=== PATIENT | female | born 1940 | race Caucasian/White ===

== ENCOUNTER 2021-09-10 14:17 | Inpatient (IN) ==
--- NOTE | 2021-09-08 16:17 | XRay Report ---
INDICATION: pre-op TECHNIQUE: PA and lateral upright chest x-ray COMPARISON: Previous examinations dated 03/27/2021, 11/19/2020, 06/23/2020 FINDINGS: Lungs: Lungs are hyperexpanded suggesting COPD. No focal pulmonary parenchymal infiltrate or mass. Heart, vascular: No significant cardiomegaly. Pulmonary vascularity is normal. No pulmonary edema or pulmonary congestion Mediastinum, wilma: No mediastinal widening. No hilar mass Pleura:No pleural fluid. No pleural-based mass or calcification Thoracic spine, ribs: No thoracic compression fracture. Ribs are negative. No fracture. No lytic lesion IMPRESSION: 1. Probable COPD 2. No acute or focal abnormality Interpreted and Authenticated by: Del Ng 09/08/21
--- NOTE | 2021-09-09 12:18 | EKG ---
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
--- NOTE | 2021-09-10 14:18 | Emergency Department Note ---
HPI General Chief complaint: Dizziness Stated complaint: Dizzy Time Seen by Provider: 09/10/21 14:18 Source: patient Mode of arrival: ambulatory Limitations: no limitations History of Present Illness HPI Narrative: 81-year-old female with past medical history of paroxysmal A. fib not on anticoagulation, Crohn's disease, CKD, and COPD presenting with lightheadedness. Patient states over the last week she has felt more lightheaded than usual, especially when getting up from her chair to go to the bathroom. She has not fallen or lost consciousness. She denies any room spinning vertiginous symptoms. Denies any prior history of [place] or CVA. She had outpatient labs and chest x-ray 2 days ago in preparation for surgery to remove a ureteral stent that is in place. No fever, cough, chest pain, vomiting, or diarrhea. No headache or vision changes. No other complaints. Related Data Home Medications Medication Instructions Recorded Confirmed aspirin 81 mg chewable tablet 81 mg PO DAILY tab 01/27/15 09/08/21 folic acid 800 mcg tablet 800 mcg PO QDAY tab 01/27/15 09/08/21 calcium carbonate 300 mg (750 mg) 300 mg PO QDAY tab 09/28/20 09/08/21 chewable tablet (Tums) qvbrqpkmrfkq-muasfbdj-vkdyrj tablet 1 tab PO QDAY 03/27/21 09/08/21 omega 4-zks-hzl-fish oil 1,000 mg 1 cap PO QDAY 03/27/21 09/08/21 (120 mg-180 mg) capsule (Fish Oil) azathioprine 50 mg tablet (Imuran) 50 mg PO QDAY tab 05/10/21 09/08/21 mirabegron 50 mg tablet,extended 50 mg PO QDAY 05/10/21 09/08/21 release 24 hr (Myrbetriq) cetirizine 10 mg tablet (Zyrtec) 10 mg PO QDAY PRN 09/08/21 09/08/21 cholecalciferol (vitamin D3) 25 25 mcg PO QDAY 09/08/21 09/08/21 mcg (1,000 unit) capsule (Vitamin D3) Previous Rx's Medication Instructions Recorded potassium citrate 10 mEq (1,080 10 meq PO TID #90 tab 03/02/21 mg) tablet,extended release buspirone 5 mg tablet 2.5 mg PO QDAY #45 tab 05/09/21 cyanocobalamin (vitamin B-12) 1,000 mcg SUB-Q QMONTH #3 ml 05/09/21 1,000 mcg/mL injection solution escitalopram oxalate 10 mg tablet 10 mg PO QDAY #90 tab 05/09/21 (Lexapro) fluticasone 100 mcg-salmeterol 50 1 inh INHALATION QDAY #60 ea 05/09/21 mcg/dose blistr powdr for inhalation (Wixela Inhub) metoprolol succinate 25 mg 25 mg PO HS #90 tab 05/09/21 tablet,extended release 24 hr pravastatin 40 mg tablet 40 mg PO HS #90 tab 05/09/21 magnesium oxide 420 mg tablet 420 mg PO ONCE #7 tab 08/16/21 Allergies Allergy/AdvReac Type Severity Reaction Status Date / Time Iodinated Contrast Media Allergy Mild Hives Verified 09/10/21 14:20 [Iodinated Contrast Media - IV Dye] Review of Systems ROS ROS Narrative: Narrative: Constitutional: Denies fever or chills Eyes: Denies vision change ENT ED: Denies throat pain Cardiovascular: Denies chest pain or palpitations Respiratory: Denies shortness of breath or cough Gastrointestinal: Denies abdominal pain, nausea or vomiting Genitourinary: Denies dysuria or hematuria Musculoskeletal: Denies back pain or joint swelling Integumentary: Denies rash or lesions Neurological: Denies headache, weakness, numbness, paresthesias, confusion or abnormal gait Psychiatric: Denies anxiety Endocrine: Denies fatigue Hematological/Lymphatic: Denies easy bleeding PFSH Narrative Patient History Narrative: Narrative: Medical/Surgical/Family History All Active Problems (Updated 09/10/21 @ 17:26 by Niranjan San MD) Allergic rhinitis (Chronic) Asthma (Chronic) Chronic kidney disease (CKD), stage III (moderate) (Chronic) COPD (chronic obstructive pulmonary disease) (Chronic) Crohn's disease (Chronic) Hyperlipidemia (Chronic) Kidney stones (Chronic) Overweight (Chronic) Renal osteodystrophy (Chronic) UTI (urinary tract infection) (Chronic) Vitamin D deficiency (Chronic) Hypertensive renal disease (Chronic) Osteoarthritis of right hip (Chronic) Kidney stone (Chronic) Ureteral calculi (Chronic) Recurrent nephrolithiasis (Chronic) Arterial insufficiency (Chronic) Frequent loose stools (Chronic) Fever (Chronic) Hydronephrosis (Chronic) Urinary calculi (Chronic) Immunosuppression (Chronic) 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) Blurry vision, bilateral (Chronic) History of atrial fibrillation (Chronic) History of decreased renal function (Chronic) Chest pain (Chronic) Calcium oxalate renal calculus (Chronic) Urinary tract infection (Chronic) Acute anxiety (Chronic) Pyuria (Chronic) OAB (overactive bladder) (Chronic) Diarrhea (Chronic) Tobacco dependence in remission (Chronic) Seborrheic keratosis (Chronic) Anxiety and depression (Chronic) Tremor (Chronic) Hypomagnesemia (Acute) Retained ureteral stent (Acute) Emphysematous pyelitis (Acute) Medical History (Updated 09/10/21 @ 17:26 by Niranjan San MD) Acute exacerbation of chronic bronchitis Alkalosis Allergic rhinitis Anxiety and depression Arterial insufficiency Asthma Atrial fibrillation single episode Calculus of ureter Chronic kidney disease (CKD), stage III (moderate) Peak SCr 1.9, now in low 1's Todd U/A and normal kidneys by U/S except for multiple non-obstructing stones COPD (chronic obstructive pulmonary disease) Crohn's disease Terminal ileum cecum and appendix have been removed as well as an additional small portion of bowel Liquidy stool leading to increased fluid loss via GI tract => difficult to get the patient to make 2 L of urine a day to help with recurrent nephrolithiasis Azathioprine Frequent loose stools Crohn's disease and prior surgical treatment thereof Headache Heart problem Hematuria Hydronephrosis Hyperlipidemia Hypertensive renal disease BP is at goal ct low sodium diet monitor BP at home call if any concerns Hypomagnesemia Immunosuppression Needs annual dermatologic evaluation and surveillance Kidney stones Multiple drug resistant organism (MDRO) culture positive To see Dr. Robledo Neoplasm of skin Open wound of knee without complication Osteoarthritis of right hip Overweight Pain in joint, lower leg Palpitations Recurrent nephrolithiasis High urine oxalate and low urine citrate. Improved with calcium supplementation and potassium citrate. Urine pH no longer alkalotic Renal osteodystrophy Seborrheic keratosis Diffuse Tobacco dependence in remission Tremor Ureteral calculi Left ureteral stent in place Urinary calculi Urolithiasis UTI (urinary tract infection) Most recent urinary tract infection was ESBL E. coli treated with cefepime for 1 week with documented clearance Vitamin D deficiency Surgical History History of appendectomy History of cholecystectomy History of colectomy History of colonoscopy History of esophagogastroduodenoscopy History of skin cancer History of surgery Bilateral Urethroscopy and laser lithostent Family History Mother Alzheimer's disease Malignant neoplasm of colon Father Malignant neoplasm of colon Hyperlipidemia Cerebrovascular accident Aunt Diabetes mellitus Social History Smoking Status: Former smoker Alcohol Intake Frequency: does not drink Substance Use: does not use Exam Narrative Narrative: Narrative: General Limitations: no limitations General appearance: Present alert and in no apparent distress Head Head: Present atraumatic and normocephalic Eye Eye: Present normal appearance, PERRL, EOMI and visual hawkins intact; Absent scleral icterus, conjunctival injection or nystagmus ENT ENT: Present normal oropharynx and mucous membranes moist Neck Neck: Present normal inspection, full ROM and trachea midline; Absent meningis mus or lymphadenopathy Chest Chest: Present symmetric chest wall rise Respiratory Respiratory: Present normal lung sounds bilaterally; Absent respiratory distress, wheezes, stridor, accessory muscle use or prolonged expiratory phase Cardiovascular Cardiovascular: Present regular rate and normal rhythm; Absent systolic murmur or diastolic murmur Adbominal Abdominal: Present soft; Absent distention, tenderness, guarding, rebound, rigidity, organomegaly or mass Extremities Extremities: Present normal inspection; Absent pretibial edema Back Back: Absent CVA tenderness (R), CVA tenderness (L) or spinous process tenderness Neurological Neurological: Present alert, oriented X3 and CN II-XII intact; Absent motor sensory deficit Expanded Neurological Patient oriented to: Present person, place and time Speech: Present fluid speech; Absent expressive aphasia or dysarthria CRANIAL NERVES: EOM function (II, III, IV, ): Normal, facial sensation (V): Normal, facial palsy (VII): Normal, gag reflex (IX): Normal, spinal accessory function (XI): Normal and tongue deviation (XII): Normal CEREBELLAR FUNCTION: finger to nose: Normal and heel to alexander: Normal CEREBELLAR FUNCTION: normal gait Motor strength - LUE: 5/5 Motor strength - RUE: 5/5 Motor strength - LLE: 5/5 Motor strength - RLE: 5/5 UPPER MOTOR NEURON EXAM: summer neglect: Normal and pronator drift: Normal SENSORY EXAM UPPER EXTREMITY: Normal: light touch SENSORY EXAM LOWER EXTREMITY: Normal: light touch Coma Scale Eye Opening: Spontaneous Coma Scale Motor Response: Obeys Commands Coma Scale Verbal Response: Oriented Coma Scale Total: 15 Psychiatric Psychiatric: Present normal affect and normal mood Skin Skin: Present warm (WNL) and dry Course Consultations Consultation #1: Dr. Aparicio, urology Time: 15:55 Consultation #2: Dr. Aparicio, urology Time: 17:10 Vital Signs Vital signs: Vital Signs Temperature 97.7 F 09/10/21 14:17 Pulse Rate 107 H 09/10/21 14:17 Respiratory Rate 18 09/10/21 14:17 Blood Pressure 83/49 09/10/21 14:17 Pulse Oximetry (%) 97 09/10/21 14:17 Temperature 97.7 F 09/10/21 14:17 Pulse Rate 66 09/10/21 17:12 Respiratory Rate 14 09/10/21 17:12 Blood Pressure 106/50 09/10/21 16:25 Pulse Oximetry (%) 100 09/10/21 17:12 [facility] MDM Narrative Medical decision making narrative: 81-year-old female presenting with lightheadedness. Patient initially hypotensive to 83/49 without tachycardia. Patient clinically appears well and has no neurologic deficits on exam. She denies any lightheadedness at this time. Lungs are clear and abdomen is nontender. Symptoms likely secondary to her hypotension and mild dehydration. Will obtain labs, EKG, give normal saline bolus, and reassess. 1600: Labs notable for acute on chronic renal insufficiency with a creatinine of 5.2. Potassium is normal. I discussed these findings with Dr. Aparicio of urology as patient is scheduled to have removal of her ureteral stent on Saturday. He recommends obtaining a CT without contrast to evaluate for stones and hydronephrosis. CT ordered. 1720: CT shows abnormal ascending colon with pneumatosis and dilatation indicating possible malignancy. There is gas within the left renal collecting system possibly indicating emphysematous pyelitis. I spoke with Dr. Aparicio who also evaluated the CT and he recommends mission for IV antibiotics and hydration. 3.375 g IV Zosyn and 1g IV vancomycin ordered. Patient signed out to oncheber HAQ, Dr. Rush. Lab Data Lab results reviewed: Yes I reviewed the patient's lab results. Result diagrams: 09/10/21 14:40 09/10/21 14:40 Labs: Lab Results 09/10/21 09/10/21 Range/Units 14:40 14:40 WBC 8.3 (4.5-11.0) K/mcL RBC 2.51 L (3.59-5.38) M/mcL Hgb 8.9 L (11.2-15.7) g/dL Hct 26.7 L (34.1-44.9) % MCV 106.4 H (80.0-100.0) fL MCH 35.5 H (26.0-34.0) pg MCHC 33.3 (31.0-36.0) g/dL RDW 16.8 H (11.5-14.5) % Plt Count 89 L (140-440) K/mcL MPV 10.9 H (7.4-10.4) fL Neut % (Auto) 66.5 (38.0-78.0) % Lymph % (Auto) 21.9 (15.5-49.0) % [place] % (Auto) 8.2 (1.0-12.0) % Eos % (Auto) 2.8 (0.0-7.0) % Baso % (Auto) 0.6 (0.0-2.0) % Lymph # (Auto) 1.82 (1.50-4.80) K/mcL [place] # (Auto) 0.68 (0.10-0.90) K/mcL Eos # (Auto) 0.23 (0.00-0.70) K/mcL Baso # (Auto) 0.05 (0.00-0.30) K/mcL Absolute Neutrophils 5.52 (1.80-8.00) K/mcL Sodium 137 (133-145) mmol/L Potassium 4.0 (3.3-5.1) mmol/L Chloride 106 (96-108) mmol/L Carbon Dioxide 16 L (22-30) mmol/L Anion Gap 15.0 (8.0-16.0) BUN 35 H (8-23) mg/dL Creatinine 5.2 H* (0.6-1.1) mg/dL GFR Calculation 7 Glucose 89 (70-105) mg/dL Calcium 8.3 L (8.6-10.4) mg/dL Radiology Data Radiology results reviewed: Yes I reviewed the patient's radiology results. Radiology results narrative: Ordering Physician:Niranjan San M.D. Date of Service:09/10/21 Procedure(s):CT abdomen pelvis wo con INDICATION: acute on chronic renal insufficiency, hx of stones COMPARISON: Previous CT scan dated 11/12/2020. Previous plain film examinations dated 01/06/2021, 12/28/2020, 11/22/2020 TECHNIQUE: Axial images were obtained through the abdomen and pelvis. Sagittally and coronally reformatted images. FINDINGS: Lung bases:No pulmonary parenchymal density. No calcified or noncalcified nodule. No pleural or pericardial effusion Liver:Liver is small and irregular consistent with cirrhosis. No detectable mass on this noncontrast-enhanced examination no detectable paraesophageal varices. There is recanalization of the umbilical vein Gallbladder, bilary:Previous cholecystectomy Spleen:Spleen is not enlarged. There are surgical clips at the splenic hilum Pancreas:No pancreatic mass. No peripancreatic abnormality Adrenal glands:Negative Kidneys,ureters,bladder:Right kidney is atrophic and measures 10 cm in length. There is a nonobstructing 8 mm right upper pole calculus. There is a stent within the left ureter. Proximal portion of the stent is in the left renal pelvis. Distal portion of the stent is within the urinary bladder. There is a 6 cm left upper pole cyst. There are multiple calculi in the mid and lower poles of the left kidney. There is no significant hydronephrosis. There is a calculus adjacent to the distal portion of left stent just proximal to the bladder. This measures 7 mm. There is gas within the left intrarenal collecting system. There is no gas within the urinary bladder. If this patient was recently catheterized this may be a benign finding. Emphysematous pyelitis is probable in the absence of previous instrumentation There is no bladder calculus. No intravesical gas Gastrointestinal:Rectum, sigmoid colon, descending colon, transverse colon appear negative. Cecum and ascending colon are abnormal. Ascending colon is amorphous and enlarged. There appears to be pneumatosis and wall thickening. There is pericolonic infiltration. There is a small calcification within the fat surrounding the ascending colon. This was present previously and is not a new finding. A mature abscess is not identified. Ischemic colitis in the ascending colon would be atypical. Malignancy is possible. Negative small bowel. No mechanical small bowel obstruction. No bowel wall thickening. No focal abnormality. Negative stomach and duodenum. No focal abnormality. There is a small hiatal hernia Appendix: The appendix is not identified Vascular:There is calcification of the abdominal aorta. No abdominal aortic aneurysm. Lymphatic:No retroperitoneal adenopathy. No significant mesenteric adenopathy. Mesentery, peritoneum:There is moderate ascites. No pneumoperitoneum. Reproductive:Uterus is atrophic with calcifications. No adnexal mass Musculoskeletal:No lumbar compression fractures. No lytic lesions. Sacrum, pelvis, hips are negative. Severe degenerative disc disease at L4-5 and L5-S1. There is a midline osteophyte projecting posteriorly at L4-5 with significant spinal canal stenosis. There is severe degenerative joint disease in the right hip No anterior abdominal wall or inguinal hernia. IMPRESSION: 1. Abnormal ascending colon with pneumatosis and dilatation. There is infiltration of pericolonic fat. Etiology is not certain. Malignancy is possible. Ischemic colitis is possible although distribution is atypical. 2. Cirrhosis. 3. Moderate ascites. 4. Bilateral renal calculi. There is a left ureteral stent present. There is a stone adjacent to the distal portion of the stent. 5. Gas within the left renal collecting system. There is no intravesical gas. Emphysematous pyelitis is possible The exam was performed using radiation dose optimization techniques including, but not limited to, automated exposure control, adjustment of the mA and/or kV according to patient size and use of iterative reconstruction technique. Interpreted and Authenticated by: Del Ng 09/10/21 EKG Data EKG #1: EKG attestation: Yes I reviewed and interpreted this EKG. and Yes There are no EKG findings of acute coronary syndrome EKG results narrative: Normal sinus rhythm at [address] elevation or depression. No peaked T waves. 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 only: No Clinical Impression: Emphysematous pyelitis Patient Disposition: Still a Patient Follow up with: Marques Tinoco MD [Primary Care Provider] - Prescriptions: No Action potassium citrate 10 mEq (1,080 mg) tablet extended release 10 meq PO TID Qty: 90 11RF magnesium oxide 420 mg tablet 420 mg PO ONCE Qty: 7 0RF aspirin 81 mg tablet,chewable 81 mg PO DAILY 0RF folic acid 800 mcg tablet 800 mcg PO QDAY 0RF buspirone 5 mg tablet 2.5 mg PO QDAY Qty: 45 1RF cyanocobalamin (vitamin B-12) 1,000 mcg/mL solution 1,000 mcg SUB-Q QMONTH Qty: 3 1RF escitalopram oxalate [Lexapro] 10 mg tablet 10 mg PO QDAY Qty: 90 1RF fluticasone propion-salmeterol [Wixela Inhub] 100-50 mcg/dose blister with device 1 inh INHALATION QDAY Qty: 60 1RF metoprolol succinate 25 mg tablet extended release 24 hr 25 mg PO HS Qty: 90 1RF pravastatin 40 mg tablet 40 mg PO HS Qty: 90 1RF Myrbetriq 50 mg tablet extended release 24 hr 50 mg PO QDAY 0RF calcium carbonate [Tums] 300 mg (750 mg) tablet,chewable 300 mg PO QDAY 0RF Centrum Silver Tablet 1 tab PO QDAY 0RF omega 3-jrr-vkl-fish oil [Fish Oil] 1,000 mg (120 mg-180 mg) Capsule 1 cap PO QDAY 0RF azathioprine [Imuran] 50 mg tablet 50 mg PO QDAY 0RF cetirizine [Zyrtec] 10 mg Tablet 10 mg PO QDAY PRN (Reason: Allergies) 0RF cholecalciferol (vitamin D3) [Vitamin D3] 25 mcg (1,000 unit) Capsule 25 mcg PO QDAY 0RF
[2021-09-10] MEDS ORDERED: 0.9 % SODIUM CHLORIDE 1,000 ML IV ONE ×3 (14:32→22:28)
--- NOTE | 2021-09-10 14:54 | EKG ---
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 Measurements Intervals [place] Rate: 63 P: -5 MO: 174 QRS: 41 QRSD: 104 T: 65 QT: 468 QTc: 480 Interpretive Statements Sinus rhythm Electronically Signed On 09-10-2021 14:53:55 PST by Eduin Barillas D.O. /store/M0/[id number]
[2021-09-10 15:27] LABS: Basophils # (Auto) 0.05 K/mcL (0.00-0.30); Basophils % (Auto) 0.6 % (0.0-2.0); Eosinophils # (Auto) 0.23 K/mcL (0.00-0.70); Eosinophils % (Auto) 2.8 % (0.0-7.0); Hematocrit 26.7 % (34.1-44.9); Hemoglobin 8.9 g/dL (11.2-15.7); Lymphocytes # (Auto) 1.82 K/mcL (1.50-4.80); Lymphocytes % (Auto) 21.9 % (15.5-49.0); Mean Cell Volume 106.4 fL (80.0-100.0); Mean Corpuscular HGB Conc 33.3 g/dL (31.0-36.0); Mean Platelet Volume 10.9 fL (7.4-10.4); Monocytes # (Auto) 0.68 K/mcL (0.10-0.90); Monocytes % (Auto) 8.2 % (1.0-12.0); Neutrophils % (Auto) 66.5 % (38.0-78.0); Platelet Count 89 K/mcL (140-440); RBC 2.51 M/mcL (3.59-5.38); Red Cell Distribution Width 16.8 % (11.5-14.5); WBC 8.3 K/mcL (4.5-11.0)
[2021-09-10 15:34] LABS: Blood Urea Nitrogen 35 mg/dL (8-23); Calcium 8.3 mg/dL (8.6-10.4); Carbon Dioxide 16 mmol/L (22-30); Chloride 106 mmol/L (96-108); Glomerular Filtration Rate 7; Glucose 89 mg/dL (70-105)
--- NOTE | 2021-09-10 16:50 | Cat Scan Report ---
INDICATION: acute on chronic renal insufficiency, hx of stones COMPARISON: Previous CT scan dated 11/12/2020. Previous plain film examinations dated 01/06/2021, 12/28/2020, 11/22/2020 TECHNIQUE: Axial images were obtained through the abdomen and pelvis. Sagittally and coronally reformatted images. FINDINGS: Lung bases:No pulmonary parenchymal density. No calcified or noncalcified nodule. No pleural or pericardial effusion Liver:Liver is small and irregular consistent with cirrhosis. No detectable mass on this noncontrast-enhanced examination no detectable paraesophageal varices. There is recanalization of the umbilical vein Gallbladder, bilary:Previous cholecystectomy Spleen:Spleen is not enlarged. There are surgical clips at the splenic hilum Pancreas:No pancreatic mass. No peripancreatic abnormality Adrenal glands:Negative Kidneys,ureters,bladder:Right kidney is atrophic and measures 10 cm in length. There is a nonobstructing 8 mm right upper pole calculus. There is a stent within the left ureter. Proximal portion of the stent is in the left renal pelvis. Distal portion of the stent is within the urinary bladder. There is a 6 cm left upper pole cyst. There are multiple calculi in the mid and lower poles of the left kidney. There is no significant hydronephrosis. There is a calculus adjacent to the distal portion of left stent just proximal to the bladder. This measures 7 mm. There is gas within the left intrarenal collecting system. There is no gas within the urinary bladder. If this patient was recently catheterized this may be a benign finding. Emphysematous pyelitis is probable in the absence of previous instrumentation There is no bladder calculus. No intravesical gas Gastrointestinal:Rectum, sigmoid colon, descending colon, transverse colon appear negative. Cecum and ascending colon are abnormal. Ascending colon is amorphous and enlarged. There appears to be pneumatosis and wall thickening. There is pericolonic infiltration. There is a small calcification within the fat surrounding the ascending colon. This was present previously and is not a new finding. A mature abscess is not identified. Ischemic colitis in the ascending colon would be atypical. Malignancy is possible. Negative small bowel. No mechanical small bowel obstruction. No bowel wall thickening. No focal abnormality. Negative stomach and duodenum. No focal abnormality. There is a small hiatal hernia Appendix: The appendix is not identified Vascular:There is calcification of the abdominal aorta. No abdominal aortic aneurysm. Lymphatic:No retroperitoneal adenopathy. No significant mesenteric adenopathy. Mesentery, peritoneum:There is moderate ascites. No pneumoperitoneum. Reproductive:Uterus is atrophic with calcifications. No adnexal mass Musculoskeletal:No lumbar compression fractures. No lytic lesions. Sacrum, pelvis, hips are negative. Severe degenerative disc disease at L4-5 and L5-S1. There is a midline osteophyte projecting posteriorly at L4-5 with significant spinal canal stenosis. There is severe degenerative joint disease in the right hip No anterior abdominal wall or inguinal hernia. IMPRESSION: 1. Abnormal ascending colon with pneumatosis and dilatation. There is infiltration of pericolonic fat. Etiology is not certain. Malignancy is possible. Ischemic colitis is possible although distribution is atypical. 2. Cirrhosis. 3. Moderate ascites. 4. Bilateral renal calculi. There is a left ureteral stent present. There is a stone adjacent to the distal portion of the stent. 5. Gas within the left renal collecting system. There is no intravesical gas. Emphysematous pyelitis is possible The exam was performed using radiation dose optimization techniques including, but not limited to, automated exposure control, adjustment of the mA and/or kV according to patient size and use of iterative reconstruction technique. Interpreted and Authenticated by: Del Ng 09/10/21
[2021-09-10] MEDS ORDERED: PIPERACILLIN SODIUM/TAZOBACTAM 3.375 GM in DEXTROSE 5% IN WATER 50 ML IV ONE (17:07)
[2021-09-10] MEDS ORDERED: VANCOMYCIN 1,000 MG in 0.9 % SODIUM CHLORIDE 250 ML IV ONE (17:24)
[2021-09-10 20:09] LABS: Appearance,Urine Cloudy (Clear); Bacteria,Urine MANY /hpf (0); Bilirubin,Urine Negative (Negative); Culture Indicated,Urine yes; Glucose,Urine (UA) Negative (Negative); Ketones,Urine Trace mg/dL (Negative); Leukocyte Esterase,Urine Large /uL (Negative); Nitrate,Urine Negative (Negative); Protein,Urine >=300 mg/dL mg/dL (Negative); Urine Blood Large ery/mcL (Negative); Urine RBC > 182 /hpf (0-1); Urine Squamous Epithelial Cell 0 /hpf (0-4); Urine WBC > 182 /hpf (0-4); Urobilinogen,Urine Normal
--- NOTE | 2021-09-10 21:15 | Emergency Department Note ---
Course Course Course Narrative: Signout pending admission. 81-year-old female presented with generalized weakness lightheadedness for the last week. Describing orthostatic hypotension on standing. Was found to be hypotensive on arrival to the emergency room. Bolused fluids with improvement in symptoms as well as blood pressure. Acute on chronic kidney disease was found on her laboratory studies creatinine was 3.7 on September 08 2 days prior and had jumped to 5.2 today. Urinalysis does show evidence of infection. Cultured. Dr. San had spoken to Dr. Aparicio. Did recommend a CT abdomen pelvis. 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 Dr. San did speak to Dr. Aparicio no immediate intervention at this time however IV antibiotics Zosyn Macr obid and will remove stent tomorrow. On my evaluation patient is resting comfortably. Denies nausea vomiting. Does have chronic loose stools was told to avoid dairy products. With improvement in her loose stools. No abdominal pain. Awake alert oriented x4. Normal blood pressure at 106/50 and a pulse of 67. Was able to ambulate with her walker to the restroom with no lightheadedness weakness. Tolerating p.o. She was updated on results clinic impressions treatment plan to admit. Agreeable questions have been answered at length. I did speak to Dr. Tomasz Jones who again agrees with IV fluid hydration antibiotic stent removal no hemodialysis at this time and states Dr. Lane is on-call and will see patient in the morning. Dr. Wesley hospitalist was spoken to. He did review records as well as imaging. CT scan is also showing an abnormal ascending colon with pneumatosis and dilatation. Patient states that she does see GI for her Crohn's disease did have resection of her bowel years ago by a doctor Majors. Hospitalist is requesting I speak to the on-call general surgeon. Dr. Tate was spoken to by myself agreeable to consult and will evaluate the patient in the morning. Dr Wesley updated. Vital Signs Vital signs: Vital Signs Temperature 36.5 C 09/10/21 14:17 Pulse Rate 107 H 09/10/21 14:17 Respiratory Rate 18 09/10/21 14:17 Blood Pressure 83/49 09/10/21 14:17 Pulse Oximetry (%) 97 09/10/21 14:17 Temperature 36.5 C 09/10/21 14:17 Pulse Rate 67 09/10/21 21:08 Respiratory Rate 13 09/10/21 21:08 Blood Pressure 106/50 09/10/21 16:25 Pulse Oximetry (%) 100 09/10/21 21:08 [facility] MDM Narrative Medical decision making narrative: Narrative: Lab Data Result diagrams: 09/10/21 14:40 09/10/21 14:40 Labs: Lab Results 09/10/21 09/10/21 09/10/21 Range/Units 14:40 14:40 19:22 WBC 8.3 (4.5-11.0) K/mcL RBC 2.51 L (3.59-5.38) M/mcL Hgb 8.9 L (11.2-15.7) g/dL Hct 26.7 L (34.1-44.9) % MCV 106.4 H (80.0-100.0) fL MCH 35.5 H (26.0-34.0) pg MCHC 33.3 (31.0-36.0) g/dL RDW 16.8 H (11.5-14.5) % Plt Count 89 L (140-440) K/mcL MPV 10.9 H (7.4-10.4) fL Neut % (Auto) 66.5 (38.0-78.0) % Lymph % (Auto) 21.9 (15.5-49.0) % [place] % (Auto) 8.2 (1.0-12.0) % Eos % (Auto) 2.8 (0.0-7.0) % Baso % (Auto) 0.6 (0.0-2.0) % Lymph # (Auto) 1.82 (1.50-4.80) K/mcL [place] # (Auto) 0.68 (0.10-0.90) K/mcL Eos # (Auto) 0.23 (0.00-0.70) K/mcL Baso # (Auto) 0.05 (0.00-0.30) K/mcL Absolute Neutrophils 5.52 (1.80-8.00) K/mcL Sodium 137 (133-145) mmol/L Potassium 4.0 (3.3-5.1) mmol/L Chloride 106 (96-108) mmol/L Carbon Dioxide 16 L (22-30) mmol/L Anion Gap 15.0 (8.0-16.0) BUN 35 H (8-23) mg/dL Creatinine 5.2 H* (0.6-1.1) mg/dL GFR Calculation 7 Glucose 89 (70-105) mg/dL Calcium 8.3 L (8.6-10.4) mg/dL Urine Color Green Urine Appearance Cloudy A (Clear) Urine pH 6.0 (5.0-9.0) Ur Specific [place] 1.020 (1.000-1.035) Urine Protein >=300 mg/dl A (Negative) mg/dL Urine Glucose (UA) Negative (Negative) mg/dL Urine Ketones Trace A (Negative) mg/dL Urine Occult Blood Large A (Negative) yael/mcL Urine Nitrate Negative (Negative) Urine Bilirubin Negative (Negative) mg/dL Urine Urobilinogen Normal mg/dL Ur Leukocyte Esterase Large A (Negative) /uL Urine RBC > 182 H (0-1) /hpf Urine WBC > 182 H (0-4) /hpf Ur Squamous Epith Cells 0 (0-4) /hpf Urine Bacteria Many A (0) /hpf Ur Culture Indicated? yes Discharge Plan Patient/Caregiver Discharge Instructions Pt seen by [employer]/PA only: No Clinical Impression: Emphysematous pyelitis Patient Disposition: Still a Patient Follow up with: Marques Tinoco MD [Primary Care Provider] - Prescriptions: No Action potassium citrate 10 mEq (1,080 mg) tablet extended release 10 meq PO TID Qty: 90 11RF magnesium oxide 420 mg tablet 420 mg PO ONCE Qty: 7 0RF aspirin 81 mg tablet,chewable 81 mg PO DAILY 0RF folic acid 800 mcg tablet 800 mcg PO QDAY 0RF buspirone 5 mg tablet 2.5 mg PO QDAY Qty: 45 1RF cyanocobalamin (vitamin B-12) 1,000 mcg/mL solution 1,000 mcg SUB-Q QMONTH Qty: 3 1RF escitalopram oxalate [Lexapro] 10 mg tablet 10 mg PO QDAY Qty: 90 1RF fluticasone propion-salmeterol [Wixela Inhub] 100-50 mcg/dose blister with device 1 inh INHALATION QDAY Qty: 60 1RF metoprolol succinate 25 mg tablet extended release 24 hr 25 mg PO HS Qty: 90 1RF pravastatin 40 mg tablet 40 mg PO HS Qty: 90 1RF calcium carbonate [Tums] 300 mg (750 mg) tablet,chewable 300 mg PO QDAY 0RF Centrum Silver Tablet 1 tab PO QDAY 0RF omega 7-rkv-jvz-fish oil [Fish Oil] 1,000 mg (120 mg-180 mg) Capsule 1 cap PO QDAY 0RF azathioprine [Imuran] 50 mg tablet 50 mg PO QDAY 0RF cetirizine [Zyrtec] 10 mg Tablet 10 mg PO QDAY PRN (Reason: Allergies) 0RF cholecalciferol (vitamin D3) [Vitamin D3] 25 mcg (1,000 unit) Capsule 25 mcg PO QDAY 0RF
--- NOTE | 2021-09-10 21:24 | Internal Med History&Physical ---
HPI History of Present Illness Patient information: Note initiated : 09/10/21 at 9:12 pm Service Date, if different from initiated Date: [] Patient: Rani Toro a 81 y/o F admitted on for Dizzy. Chief Complaint: [] History of present illness: Ms. Toro is a 81 year old F Presents to the ED with increasing weakness and lightheadedness. Patient had hard time walking to the bathroom without having to sit down from feeling lightheadedness. Denies fever chills nausea vomiting. Denies chest pain or stomach pain. Abnormal bowel function from Crohn's. Has a history of chronic kidney disease and follows with Dr. Angeles. Chronic thrombocytopenia and anemia. Old notes report a single episode of atrial fibrillation but none since; and confirmed by pt. She has a left kidney stents post removed by Dr. Aparicio on Saturday. On evaluation the ED she was hypotensive initially which responded to IV fluid. She is work-up but found to have acute acute kidney injury on chronic kidney disease. Wound to have pyelonephritis on the left. Case discussed with Dr. Karthik Aparicio. CT abdominal also read as pneumatosis in the colon and case discussed with Dr. Tate who will see the patient in the morning but did not have any recommendations at this point. Review of Systems: Pertinent positives as above. Denies headache/fever/chills/nausea/vomiting/chest or abdominal pain/cough/dyspnea/diarrhea. Remaining 10 point review of system reviewed negative PFSH PFSH All Active Problems (Updated 09/10/21 @ 17:26 by Niranjan San MD) Allergic rhinitis (Chronic) Asthma (Chronic) Chronic kidney disease (CKD), stage III (moderate) (Chronic) COPD (chronic obstructive pulmonary disease) (Chronic) Crohn's disease (Chronic) Hyperlipidemia (Chronic) Kidney stones (Chronic) Overweight (Chronic) Renal osteodystrophy (Chronic) UTI (urinary tract infection) (Chronic) Vitamin D deficiency (Chronic) Hypertensive renal disease (Chronic) Osteoarthritis of right hip (Chronic) Kidney stone (Chronic) Ureteral calculi (Chronic) Recurrent nephrolithiasis (Chronic) Arterial insufficiency (Chronic) Frequent loose stools (Chronic) Fever (Chronic) Hydronephrosis (Chronic) Urinary calculi (Chronic) Immunosuppression (Chronic) 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) Blurry vision, bilateral (Chronic) History of atrial fibrillation (Chronic) History of decreased renal function (Chronic) Chest pain (Chronic) Calcium oxalate renal calculus (Chronic) Urinary tract infection (Chronic) Acute anxiety (Chronic) Pyuria (Chronic) OAB (overactive bladder) (Chronic) Diarrhea (Chronic) Tobacco dependence in remission (Chronic) Seborrheic keratosis (Chronic) Anxiety and depression (Chronic) Tremor (Chronic) Hypomagnesemia (Acute) Retained ureteral stent (Acute) Emphysematous pyelitis (Acute) Medical History (Updated 09/10/21 @ 17:26 by Niranjan San MD) Acute exacerbation of chronic bronchitis Alkalosis Allergic rhinitis Anxiety and depression Arterial insufficiency Asthma Atrial fibrillation single episode Calculus of ureter Chronic kidney disease (CKD), stage III (moderate) Peak SCr 1.9, now in low 1's [place] U/A and normal kidneys by U/S except for multiple non-obstructing stones COPD (chronic obstructive pulmonary disease) Crohn's disease Terminal ileum cecum and appendix have been removed as well as an additional small portion of bowel Liquidy stool leading to increased fluid loss via GI tract => difficult to get the patient to make 2 L of urine a day to help with recurrent nephrolithiasis Azathioprine Frequent loose stools Crohn's disease and prior surgical treatment thereof Headache Heart problem Hematuria Hydronephrosis Hyperlipidemia Hypertensive renal disease BP is at goal ct low sodium diet monitor BP at home call if any concerns Hypomagnesemia Immunosuppression Needs annual dermatologic evaluation and surveillance Kidney stones Multiple drug resistant organism (MDRO) culture positive To see Dr. Robledo Neoplasm of skin Open wound of knee without complication Osteoarthritis of right hip Overweight Pain in joint, lower leg Palpitations Recurrent nephrolithiasis High urine oxalate and low urine citrate. Improved with calcium supplementation and potassium citrate. Urine pH no longer alkalotic Renal osteodystrophy Seborrheic keratosis Diffuse Tobacco dependence in remission Tremor Ureteral calculi Left ureteral stent in place Urinary calculi Urolithiasis UTI (urinary tract infection) Most recent urinary tract infection was ESBL E. coli treated with cefepime for 1 week with documented clearance Vitamin D deficiency Surgical History History of appendectomy History of cholecystectomy History of colectomy History of colonoscopy History of esophagogastroduodenoscopy History of skin cancer History of surgery Bilateral Urethroscopy and laser lithostent Family History Mother Alzheimer's disease Malignant neoplasm of colon Father Malignant neoplasm of colon Hyperlipidemia Cerebrovascular accident Aunt Diabetes mellitus Social History marital status: occupational status: retired occupation: [employer] other: Has 1 child smoking status: Former smoker quit date: 07/29/09 alcohol intake frequency: does not drink substance use type: does not use MEDS/ALLERGIES Home Medications and Allergies Home Medications Medication Instructions Recorded Confirmed Type aspirin 81 mg chewable tablet 81 mg PO DAILY tab 01/27/15 09/10/21 History folic acid 800 mcg tablet 800 mcg PO QDAY tab 01/27/15 09/10/21 History calcium carbonate 300 mg (750 mg) 300 mg PO QDAY tab 09/28/20 09/10/21 History chewable tablet (Tums) potassium citrate 10 mEq (1,080 10 meq PO TID #90 tab 03/02/21 09/10/21 Rx mg) tablet,extended release yxovirqiikeb-uvgwuubt-hgepci tablet 1 tab PO QDAY 03/27/21 09/10/21 History omega 8-rjv-sjd-fish oil 1,000 mg 1 cap PO QDAY 03/27/21 09/10/21 History (120 mg-180 mg) capsule (Fish Oil) buspirone 5 mg tablet 2.5 mg PO QDAY #45 tab 05/09/21 09/10/21 Rx cyanocobalamin (vitamin B-12) 1,000 mcg SUB-Q QMONTH #3 ml 05/09/21 09/10/21 Rx 1,000 mcg/mL injection solution escitalopram oxalate 10 mg tablet 10 mg PO QDAY #90 tab 05/09/21 09/10/21 Rx (Lexapro) fluticasone 100 mcg-salmeterol 50 1 inh INHALATION QDAY #60 ea 05/09/21 09/10/21 Rx mcg/dose blistr powdr for inhalation (Wixela Inhub) metoprolol succinate 25 mg 25 mg PO HS #90 tab 05/09/21 09/10/21 Rx tablet,extended release 24 hr pravastatin 40 mg tablet 40 mg PO HS #90 tab 05/09/21 09/10/21 Rx azathioprine 50 mg tablet (Imuran) 50 mg PO QDAY tab 05/10/21 09/10/21 History magnesium oxide 420 mg tablet 420 mg PO ONCE #7 tab 08/16/21 09/10/21 Rx cetirizine 10 mg tablet (Zyrtec) 10 mg PO QDAY PRN 09/08/21 09/10/21 History cholecalciferol (vitamin D3) 25 25 mcg PO QDAY 09/08/21 09/10/21 History mcg (1,000 unit) capsule (Vitamin D3) Allergies Allergy/AdvReac Type Severity Reaction Status Date / Time Iodinated Contrast Media Allergy Mild Hives Verified 09/10/21 14:20 [Iodinated Contrast Media - IV Dye] EXAM Constitutional Vitals: Temp Pulse Resp BP Pulse Ox 97.7 F 67 13 106/50 100 09/10/21 14:17 09/10/21 21:08 09/10/21 21:08 09/10/21 16:25 09/10/21 21:08 Exam: General: Alert, Awake, No acute Distress Eyes/N/T: EOMI, PERRL, dry MM Head/Neck: neck supple, normocephalic atraumatic CV: RRR, No murmurs, normal s1/s2 Pulm: Clear b/l, no wheezing/rhonchi/rales Abd: soft, nontender, decreased BS x4 Ext: no clubbing/cyanosis/edema Neuro: Alert, no focal deficits, moves all extremities, CN 2-12 grossly intact, symmetrical strength b/l upper/lower, sensations intact b/l upper/lower Skin: warm/dry DATA Data Completed and Pending Labs: Labs from last 24 hours 09/10/21 09/10/21 09/10/21 21:02 19:22 14:40 WBC RBC Hgb Hct MCV MCH MCHC RDW Plt Count MPV Neut % (Auto) Lymph % (Auto) [place] % (Auto) Eos % (Auto) Baso % (Auto) Lymph # (Auto) [place] # (Auto) Eos # (Auto) Baso # (Auto) Absolute Neutrophils Platelet Estimate RBC Morphology PT INR VBG Lactic Acid Pending Sodium Potassium Chloride Carbon Dioxide Anion Gap BUN Creatinine GFR Calculation Glucose Calcium Total Bilirubin Pending Direct Bilirubin Pending AST Pending ALT Pending Alkaline Phosphatase Pending Total Protein Pending Albumin Pending Globulin Pending Urine Color Green Urine Appearance Cloudy A Urine pH 6.0 Ur Specific [place] 1.020 Urine Protein >=300 mg/dl A Urine Glucose (UA) Negative Urine Ketones Trace A Urine Occult Blood Large A Urine Nitrate Negative Urine Bilirubin Negative Urine Urobilinogen Normal Ur Leukocyte Esterase Large A Urine RBC > 182 H Urine WBC > 182 H Ur Squamous Epith Cells 0 Urine Bacteria Many A Ur Culture Indicated? yes 09/10/21 09/10/21 09/10/21 14:40 14:40 14:40 WBC 8.3 RBC 2.51 L Hgb 8.9 L Hct 26.7 L MCV 106.4 H MCH 35.5 H MCHC 33.3 RDW 16.8 H Plt Count 89 L MPV 10.9 H Neut % (Auto) 66.5 Lymph % (Auto) 21.9 [place] % (Auto) 8.2 Eos % (Auto) 2.8 Baso % (Auto) 0.6 Lymph # (Auto) 1.82 [place] # (Auto) 0.68 Eos # (Auto) 0.23 Baso # (Auto) 0.05 Absolute Neutrophils 5.52 Platelet Estimate Pending RBC Morphology Pending PT Pending INR Pending VBG Lactic Acid Sodium Potassium Chloride Carbon Dioxide Anion Gap BUN Creatinine GFR Calculation Glucose Calcium Total Bilirubin Direct Bilirubin AST ALT Alkaline Phosphatase Total Protein Albumin Globulin Urine Color Urine Appearance Urine pH Ur Specific [place] Urine Protein Urine Glucose (UA) Urine Ketones Urine Occult Blood Urine Nitrate Urine Bilirubin Urine Urobilinogen Ur Leukocyte Esterase Urine RBC Urine WBC Ur Squamous Epith Cells Urine Bacteria Ur Culture Indicated? 09/10/21 14:40 WBC RBC Hgb Hct MCV MCH MCHC RDW Plt Count MPV Neut % (Auto) Lymph % (Auto) [place] % (Auto) Eos % (Auto) Baso % (Auto) Lymph # (Auto) [place] # (Auto) Eos # (Auto) Baso # (Auto) Absolute Neutrophils Platelet Estimate RBC Morphology PT INR VBG Lactic Acid Sodium 137 Potassium 4.0 Chloride 106 Carbon Dioxide 16 L Anion Gap 15.0 BUN 35 H Creatinine 5.2 H* GFR Calculation 7 Glucose 89 Calcium 8.3 L Total Bilirubin Direct Bilirubin AST ALT Alkaline Phosphatase Total Protein Albumin Globulin Urine Color Urine Appearance Urine pH Ur Specific [place] Urine Protein Urine Glucose (UA) Urine Ketones Urine Occult Blood Urine Nitrate Urine Bilirubin Urine Urobilinogen Ur Leukocyte Esterase Urine RBC Urine WBC Ur Squamous Epith Cells Urine Bacteria Ur Culture Indicated? A/P Narrative A/P Narrative: A: *Severe sepsis: 2/2 pyelonephritis *Hypotension: 2/2 above and resolved in the ED with IVF *Left pyelonephritis: Has a left ureteral stent will be removed by Dr. Aparicio *RAMSES on CKD III: Follows Dr. Angeles *Met acidosis: 2/2 above *Anemia, chronic: *Thrombocytopenia, chronic: *?cirrhosis: CT imaging read as cirrhosis with ascites *COPD(no home O2): *Depression/anxiety: *Crohn's: Follows with Dr. Jacobo P: -Zosyn pending UC -IVF -Dr. Angeles and Alessandra following -Dr. Tate consulted for CT a/p findings -liver u/s with doppler - -pt/ot -f/u with Donnell regarding cirrhosis read on CT -ppx: heparin (hold if plts<50k) DNR Time Spent With Patient Time: Total time spent is greater than 50% in coordination of care (as documented) at patient's floor/unit and/or counseling patient:
[2021-09-10 21:36] LABS: ALT/SGPT 19 U/L (<40); AST/SGOT 33 U/L (<32); Albumin 3.1 gm/dL (3.2-5.2); Alkaline Phosphatase 69 U/L (39-117); Bilirubin,Direct 0.4 mg/dL (<0.3); Globulin 2.9 gm/dL (2.2-3.7)
[2021-09-10 22:20] LABS: Anisocytosis 1+ (None Seen); Band Neutrophils % 9 % (0-10); Eosinophils % (Manual) 3 % (0-7); Lymphocytes % 20 % (15-49); Macrocytosis 1+ (None Seen); Monocytes % (Manual) 11 % (1-12); Platelet Estimate DECREASED (Normal); RBC Morphology ABNORMAL (Normal); Segmented Neutrophils % 57 % (38-78)
[2021-09-10 22:26] LABS: INR 1.9 (0.9-1.1); Prothrombin Time 22.9 sec (11.9-14.5)
[2021-09-11] MEDS ORDERED: PIPERACILLIN SODIUM/TAZOBACTAM 3.375 GM in DEXTROSE 5% IN WATER 50 ML IV ONE (00:07)
[2021-09-11] MEDS ORDERED: ALBUMIN HUMAN 25 GM/100 ML BAG IV ONE (00:18)
[2021-09-11] MEDS ORDERED: SENNOSIDES 1 TABLET PO PRN (02:27)
[2021-09-11] MEDS ORDERED: ACETAMINOPHEN 325 MG TABLET PO PRN (02:27)
[2021-09-11] MEDS ORDERED: POLYETHYLENE GLYCOL 3350 17 GM PACKET PO PRN (02:27)
[2021-09-11] MEDS ORDERED: 0.9 % SODIUM CHLORIDE 1,000 ML IV SCH ×2 (02:27→07:37)
[2021-09-11] MEDS ORDERED: POTASSIUM CHLORIDE 40 MEQ in DEXTROSE 5% IN WATER 500 ML IV PRN (02:27)
[2021-09-11] MEDS ORDERED: IPRATROPIUM/ALBUTEROL 3 ML AMPUL.NEB NEB PRN (02:27)
[2021-09-11] MEDS ORDERED: HEPARIN 5,000 UNIT/ML VIAL SQ ONE ×2 (02:27→09:23)
[2021-09-11] MEDS ORDERED: METOPROLOL TARTRATE 5 MG/5 ML VIAL IV PRN (02:27)
[2021-09-11] MEDS ORDERED: PIPERACILLIN SODIUM/TAZOBACTAM 3.375 GM in DEXTROSE 5% IN WATER 50 ML IV SCH (02:27)
[2021-09-11] MEDS ORDERED: POTASSIUM CHLORIDE 20 MEQ TABLET PO PRN (02:27)
[2021-09-11] MEDS ORDERED: ONDANSETRON 4 MG/2 ML VIAL IV PRN (02:27)
[2021-09-11] MEDS: 0.9 % SODIUM CHLORIDE 10 ML SYRINGE IV SCH ×4 (03:02→20:23)
[2021-09-11] MEDS ORDERED: HEPARIN 5,000 UNIT/ML VIAL ONE (05:06)
[2021-09-11 07:05] LABS: Hematocrit 24.5 % (34.1-44.9); Hemoglobin 7.6 g/dL (11.2-15.7); Mean Cell Volume 111.4 fL (80.0-100.0); Mean Platelet Volume 10.8 fL (7.4-10.4); Platelet Count 64 K/mcL (140-440); Red Cell Distribution Width 17.1 % (11.5-14.5); WBC 5.2 K/mcL (4.5-11.0)
[2021-09-11 07:31] LABS: ALT/SGPT 15 U/L (<40); AST/SGOT 28 U/L (<32); Albumin 3.1 gm/dL (3.2-5.2); Albumin/Globulin Ratio 1.3 (1.0-2.3); Alkaline Phosphatase 55 U/L (39-117); Bilirubin,Direct 0.5 mg/dL (<0.3); Bilirubin,Total 1.1 mg/dL (0.1-1.0); Blood Urea Nitrogen 33 mg/dL (8-23); Calcium 7.7 mg/dL (8.6-10.4); Carbon Dioxide 14 mmol/L (22-30); Chloride 111 mmol/L (96-108); Globulin 2.4 gm/dL (2.2-3.7); Glomerular Filtration Rate 8; Glucose 80 mg/dL (70-105); Lactate Dehydrogenase 166 U/L (135-225); Phosphorous 3.9 mg/dL (2.5-4.5); Triglycerides 41 mg/dL (<150); Uric Acid 12.1 mg/dL (2.5-8.0)
--- NOTE | 2021-09-11 07:37 | Internal Med Progress Note ---
SUBJECTIVE Subjective Patient information: Note initiated : 09/11/21 at 7:33 am Service Date, if different from initiated Date: [] Patient: Rani Toro a 81 y/o F admitted on 09/11/21 for Dizzy. Chief Complaint: [] Interval history: History of present illness: Ms. Toro is a 81 year old F Presents to the ED with increasing weakness and lightheadedness. Patient had hard time walking to the bathroom without having to sit down from feeling li ghtheadedness. Denies fever chills nausea vomiting. Denies chest pain or stomach pain. Abnormal bowel function from Crohn's. Has a history of chronic kidney disease and follows with Dr. Angeles. Chronic thrombocytopenia and anemia. Old notes report a single episode of atrial fibrillation but none since; and confirmed by pt. She has a left kidney stents post removed by Dr. Aparicio on Saturday. On evaluation the ED she was hypotensive initially which responded to IV fluid. She is work-up but found to have acute acute kidney injury on chronic kidney disease. Wound to have pyelonephritis on the left. Case discussed with Dr. Karthik Aparicio. CT abdominal also read as pneumatosis in the colon and case discussed with Dr. Tate who will see the patient in the morning but did not have any recommendations at this point. 09/11 Doing better. Not getting lightheaded like she was before. Poor sleep. Review of Systems: denies headache/fever/chills/nausea/vomiting/chest or abdominal pain /cough/dyspnea/diarrhea. Otherwise see above. Constitutional Vitals: Vital Signs Temp Pulse Resp BP Pulse Ox 97.7 F 72 20 91/55 100 09/10/21 14:17 09/11/21 06:47 09/11/21 06:47 09/11/21 06:04 09/11/21 06:47 Period Temp Pulse Resp BP Sys/Sotelo Pulse Ox Last 24 Hr 97.7 F 61-107 12-25 83-113/38-67 93-100 Intake and Output 09/10/21 09/11/21 09/11/21 21:59 05:59 13:59 Intake Total 2300 1150 Balance 2300 1150 Weight 68.039 kg 70.398 kg Intake & Output: Intake & Output 09/10/21 09/11/21 09/11/21 21:59 05:59 13:59 Intake Total 2300 1150 Balance 2300 1150 Weight 68.039 kg 70.398 kg Intake: IV 2300 1150 Sodium Chloride 0.9% 1,000 ml @ 2000 1000 Wide Open IV BOLUS ONE Rx#: [id number] Zosyn 3.375 gm In Dextrose 5% 50 50 in Water 50 ml @ 100 mls/hr IV ONCE ONE Rx#:[id number] Vancomycin 1,000 mg In Sodium 250 Chloride 0.9% 250 ml @ 250 mls/ hr IV ONCE ONE Rx#:[id number] Other: Urine Appearance Uretheral ([place]) Cloudy Sediment Urine Color Uretheral ([place]) Red Brown Stool Size Moderate Large Stool Color Brown Brown Stool Consistency Liquid Liquid Loose # of times incontinent of 1 Bowels Exam: General: Alert, Awake, No acute Distress Eyes/N/T: EOMI, Head/Neck: neck supple, CV: RRR, No murmurs, Pulm: Clear b/l, no wheezing/rhonchi/rales Abd: soft, nontender, BS x4 Ext: no clubbing/cyanosis/edema Neuro: Alert, no focal deficits, moves all extremities, Skin: warm/dry OBJ DATA Labs CBC & Chem 7: 09/11/21 06:03 09/11/21 06:03 Labs: Abnormal Lab Results 09/11/21 09/11/21 09/10/21 06:03 06:03 21:02 RBC 2.20 L Hgb 7.6 L Hct 24.5 L MCV 111.4 H MCH 34.5 H RDW 17.1 H Plt Count 64 L MPV 10.8 H Platelet Estimate RBC Morphology Anisocytosis Macrocytosis PT INR VBG Lactic Acid < 0.2 L Chloride 111 H Carbon Dioxide 14 L BUN 33 H Creatinine 4.9 H Uric Acid 12.1 H Calcium 7.7 L Total Bilirubin 1.1 H Direct Bilirubin 0.5 H AST Total Protein 5.5 L Albumin 3.1 L Urine Appearance Urine Protein Urine Ketones Urine Occult Blood Ur Leukocyte Esterase Urine RBC Urine WBC Urine Bacteria 09/10/21 09/10/21 09/10/21 19:22 14:40 14:40 RBC Hgb Hct MCV MCH RDW Plt Count MPV Platelet Estimate RBC Morphology Anisocytosis Macrocytosis PT 22.9 H INR 1.9 H VBG Lactic Acid Chloride Carbon Dioxide BUN Creatinine Uric Acid Calcium Total Bilirubin Direct Bilirubin 0.4 H AST 33 H Total Protein Albumin 3.1 L Urine Appearance Cloudy A Urine Protein >=300 mg/dl A Urine Ketones Trace A Urine Occult Blood Large A Ur Leukocyte Esterase Large A Urine RBC > 182 H Urine WBC > 182 H Urine Bacteria Many A 09/10/21 09/10/21 09/10/21 14:40 14:40 14:40 RBC 2.51 L Hgb 8.9 L Hct 26.7 L MCV 106.4 H MCH 35.5 H RDW 16.8 H Plt Count 89 L MPV 10.9 H Platelet Estimate Decreased A RBC Morphology Abnormal A Anisocytosis 1+ A Macrocytosis 1+ A PT INR VBG Lactic Acid Chloride Carbon Dioxide 16 L BUN 35 H Creatinine 5.2 H* Uric Acid Calcium 8.3 L Total Bilirubin Direct Bilirubin AST Total Protein Albumin Urine Appearance Urine Protein Urine Ketones Urine Occult Blood Ur Leukocyte Esterase Urine RBC Urine WBC Urine Bacteria Meds: Medications Acetaminophen (Acetaminophen 325 Mg Tablet) 650 mg PO Q6HP PRN; Protocol PRN Reason: Per Pain Protocol/Fever > 101 Albuterol/Ipratropium (Ipratropium/Albuterol 3 Ml Ampul.Neb) 3 ml NEB Q4HP PRN PRN Reason: Shortness Of Breath Aspirin (Aspirin 81 Mg Tab.Chew) 81 mg PO DAILY [facility] Atorvastatin Calcium (Atorvastatin 10 Mg Tablet) 10 mg PO HS AMPARO Buspirone HCl (Buspirone 5 Mg Tablet) 2.5 mg PO DAILY [facility] Calcium Carbonate/Glycine (Calcium Carbonate 500 Mg Tab.Chew) 500 mg CHEWED DAILY [facility] Escitalopram Oxalate (Escitalopram 10 Mg Tablet) 10 mg PO QDAY [facility] Folic Acid (Folic Acid 1 Mg Tablet) 1 mg PO DAILY [facility] Heparin Sodium (Porcine) (Heparin 5,000 Unit/Ml Vial) 5,000 unit SQ Q12 [facility] Potassium Chloride 40 meq/ (Dextrose) 520 mls @ 130 mls/hr IV UD PRN PRN Reason: Potassium < 3 Magnesium Sulfate (Magnesium Sulfate) 2 gm in 50 mls @ 50 mls/hr IV UD PRN PRN Reason: Magnesium </= 1.6 Sodium Chloride (Sodium Chloride 0.9%) 1,000 mls @ 75 mls/hr IV .[id number] [facility] Last Admin: 09/11/21 03:02 Dose: Not Given Documented by: Piperacillin Sod/Tazobactam (Sod 2.25 gm/ Dextrose) 50 mls @ 100 mls/hr IV Q8H [facility] Metoprolol Succinate (Metoprolol Succinate 25 Mg Tab.Xl.24h) 25 mg PO HS [facility] Metoprolol Tartrate (Metoprolol Tartrate 5 Mg/5 Ml Vial) 5 mg IV Q2HP PRN PRN Reason: Tachyarrhythmias HR>110 Ondansetron HCl (Ondansetron 4 Mg/2 Ml Vial) 4 mg IV Q4HP PRN PRN Reason: Nausea And Vomiting Polyethylene Glycol (Polyethylene Glycol 3350 17 Gm Packet) 17 gm PO DAILYP PRN PRN Reason: Constipation Potassium Chloride (Potassium Chloride 20 Meq Tablet) 40 meq PO UD PRN PRN Reason: Potssium is 3-3.5 Potassium Chloride (Potassium Chloride 20 Meq Tablet) 40 meq PO UD PRN PRN Reason: Potassium < 3 Fluticasone/Salmeterol (Fluticasone/Salmeterol 50/100 Inhaler #14) 1 puff INH DAILY [facility] Senna (Sennosides 1 Tablet) 2 tab PO DAILYP PRN PRN Reason: Constipation Sodium Chloride (0.9 % Sodium Chloride 10 Ml Syringe) 10 ml IV Q8 [facility] Last Admin: 09/11/21 05:29 Dose: Not Given Documented by: A/P Narrative A/P Narrative: A: *Severe sepsis: 2/2 pyelonephritis *Hypotension: 2/2 above and resolved in the ED with IVF *Left pyelonephritis (GNB): Has a left ureteral stent will be removed by Dr. Aparicio *RAMSES on CKD III: Follows Dr. Angeles *Met acidosis: 2/2 above *Anemia, chronic: *Thrombocytopenia, chronic: *?cirrhosis: CT imaging read as cirrhosis with ascites. no portal vein thrombosis on u/s *Coagulopathy: 2/2 above *COPD(no home O2): *Depression/anxiety: *Crohn's: Follows with Dr. Jacobo P: -Zosyn pending UC -IVF (will defer to nephrology) -Dr. Lane and Alessandra following -Dr. Tate consulted for CT a/p findings, low suspicion for pneumatosis. -cont home BB/psych -pt/ot -f/u with Donnell regarding cirrhosis read on CT -ppx: heparin (hold if plts<50k) DNR Time Spent With Patient Time: Total time spent is greater than 50% in coordination of care (as documented) at patient's floor/unit and/or counseling patient:
--- NOTE | 2021-09-11 07:47 | Urology History & Physical ---
HPI History of Present Illness Patient information: Note initiated : 09/11/21 at 7:34 am Service Date, if different from initiated Date: [] Patient: Rani Toro a 81 y/o F admitted on 09/11/21 for Dizzy. Chief Complaint: Rani is an 81-year-old woman who is well-known to me. She has a history of renal stones. She had a left renal stent placed in October 2020. She has been scheduled on several occasions to have the stones treated and a stent exchange but each of those occasions require canceling or postponing the surgery. The stent is now been in place for close to 1 year. She has been g etting more frequent urinary tract infections. Most recently urine culture revealed E. coli, Enterococcus and Enterococcus. She is scheduled for attempted left ureteral stent exchange in the operating room tomorrow. Yesterday she presented to the emergency department with weakness and lightheadedness. A complete work-up was performed in the emerge department which confirmed urinary tract infection. Noncontrast CT scan was obtained that did not reveal any hydronephrosis but did reveal bilateral stones in the left renal stent. 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 I personally reviewed the films. When I spoke with the ER they told me that they were unable to admit her due to lack of beds and that she would need to be transferred. She was eventually admitted to the hospitalist service. There was also determined that she had hypotension as well as ascites. Her serum creatinine was elevated above 5. It appeared that she was dehydrated. CT scan also revealed pneumatosis of the colon. It appears that she has a degree of cirrhosis. This morning she is resting comfortably in bed. She does not appear to be in any stress. History of present illness: Ms. Toro is a 81 year old F Review of Systems All systems: reviewed and no additional remarkable complaints except as stated Constitutional Constitutional: Present as per HPI, fatigue, lethargy and weakness Genitourinary Genitourinary: Present as per HPI, hematuria, urinary frequency and urinary urgency PFSH PFSH All Active Problems Emphysematous pyelitis (Acute) Acute renal failure with acute tubular necrosis superimposed on stage 3a chronic kidney disease (Acute) Metabolic acidosis (Acute) Retained ureteral stent (Acute) Tobacco dependence in remission (Chronic) Seborrheic keratosis (Chronic) Anxiety and depression (Chronic) Tremor (Chronic) Hypomagnesemia (Acute) Diarrhea (Chronic) OAB (overactive bladder) (Chronic) Allergic rhinitis (Chronic) Asthma (Chronic) Chronic kidney disease (CKD), stage III (moderate) (Chronic) COPD (chronic obstructive pulmonary disease) (Chronic) Crohn's disease (Chronic) Hyperlipidemia (Chronic) Kidney stones (Chronic) Overweight (Chronic) Renal osteodystrophy (Chronic) UTI (urinary tract infection) (Chronic) Vitamin D deficiency (Chronic) Hypertensive renal disease (Chronic) Osteoarthritis of right hip (Chronic) Kidney stone (Chronic) Ureteral calculi (Chronic) Recurrent nephrolithiasis (Chronic) Arterial insufficiency (Chronic) Frequent loose stools (Chronic) Fever (Chronic) Hydronephrosis (Chronic) Urinary calculi (Chronic) Immunosuppression (Chronic) 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) Blurry vision, bilateral (Chronic) History of atrial fibrillation (Chronic) History of decreased renal function (Chronic) Chest pain (Chronic) Calcium oxalate renal calculus (Chronic) Urinary tract infection (Chronic) Acute anxiety (Chronic) Pyuria (Chronic) Medical History Acute exacerbation of chronic bronchitis Alkalosis Allergic rhinitis Anxiety and depression Arterial insufficiency Asthma Atrial fibrillation single episode Calculus of ureter Chronic kidney disease (CKD), stage III (moderate) Peak SCr 1.9, now in low 1's [place] U/A and normal kidneys by U/S except for multiple non-obstructing st ones COPD (chronic obstructive pulmonary disease) Crohn's disease Terminal ileum cecum and appendix have been removed as well as an additional small portion of bowel Liquidy stool leading to increased fluid loss via GI tract => difficult to get the patient to make 2 L of urine a day to help with recurrent nephrolithiasis Azathioprine Frequent loose stools Crohn's disease and prior surgical treatment thereof Headache Heart problem Hematuria Hydronephrosis Hyperlipidemia Hypertensive renal disease BP is at goal ct low sodium diet monitor BP at home call if any concerns Hypomagnesemia Immunosuppression Needs annual dermatologic evaluation and surveillance Kidney stones Multiple drug resistant organism (MDRO) culture positive To see Dr. Robledo Neoplasm of skin Open wound of knee without complication Osteoarthritis of right hip Overweight Pain in joint, lower leg Palpitations Recurrent nephrolithiasis High urine oxalate and low urine citrate. Improved with calcium supplementat ion and potassium citrate. Urine pH no longer alkalotic Renal osteodystrophy Seborrheic keratosis Diffuse Tobacco dependence in remission Tremor Ureteral calculi Left ureteral stent in place Urinary calculi Urolithiasis UTI (urinary tract infection) Most recent urinary tract infection was ESBL E. 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 other: Has 1 child smoking status: Former smoker quit date: 07/29/09 alcohol intake frequency: does not drink substance use type: does not use MEDS/ALLERGIES Home Medications and Allergies Home Medications Medication Instructions Recorded Confirmed Type aspirin 81 mg chewable tablet 81 mg PO DAILY tab 01/27/15 09/10/21 History folic acid 800 mcg tablet 800 mcg PO QDAY tab 01/27/15 09/10/21 History potassium citrate 10 mEq (1,080 10 meq PO TID #90 tab 03/02/21 09/10/21 Rx mg) tablet,extended release [id number]-[id number]-vbjwdi tablet 1 tab PO QDAY 03/27/21 09/10/21 History omega 9-ppb-htp-fish oil 1,000 mg 1 cap PO QDAY 03/27/21 09/10/21 History (120 mg-180 mg) capsule (Fish Oil) buspirone 5 mg tablet 2.5 mg PO QDAY #45 tab 05/09/21 09/10/21 Rx cyanocobalamin (vitamin B-12) 1,000 mcg SUB-Q QMONTH #3 ml 05/09/21 09/10/21 Rx 1,000 mcg/mL injection solution escitalopram oxalate 10 mg tablet 10 mg PO QDAY #90 tab 05/09/21 09/10/21 Rx (Lexapro) fluticasone 100 mcg-salmeterol 50 1 inh INHALATION QDAY #60 ea 05/09/21 09/10/21 Rx mcg/dose blistr powdr for inhalation (Wixela Inhub) metoprolol succinate 25 mg 25 mg PO HS #90 tab 05/09/21 09/10/21 Rx tablet,extended release 24 hr pravastatin 40 mg tablet 40 mg PO HS #90 tab 05/09/21 09/10/21 Rx cetirizine 10 mg tablet (Zyrtec) 10 mg PO QDAY PRN 09/08/21 09/10/21 History cholecalciferol (vitamin D3) 25 25 mcg PO QDAY 09/08/21 09/10/21 History mcg (1,000 unit) capsule (Vitamin D3) azathioprine 50 mg tablet (Imuran) 50 mg PO QDAY 09/11/21 09/11/21 History calcium citrate 250 mg PO BID 09/11/21 09/11/21 History magnesium oxide 400 mg PO QDAY 09/11/21 09/11/21 History mirabegron 50 mg tablet,extended 50 mg PO QDAY 09/11/21 09/11/21 History release 24 hr (Myrbetriq) Allergies Allergy/AdvReac Type Severity Reaction Status Date / Time Iodinated Contrast Media Allergy Mild Hives Verified 09/11/21 05:11 [Iodinated Contrast Media - IV Dye] Physical Examination Vital Signs Vital signs: Temp Pulse Resp BP Pulse Ox 97.7 F 72 20 91/55 100 09/10/21 14:17 09/11/21 06:47 09/11/21 06:47 09/11/21 06:04 09/11/21 06:47 General physical appearance General physical exam: well developed, well nourished and no distress Eyes Eye exam: PERRL ENT ENT exam: no hearing loss Head Head exam IM: Present atraumatic, normal inspection and normocephalic Neck Neck exam: trachea midline Cardiovascular Cardiovascular exam IM: Present normal rate and rhythm Abdomen Abdomen: Present soft, non tender and distended Neurologic Neurologic: Present normal coordination Musculoskeletal Musculoskeletal: Present other (Unable to evaluate if she is currently in bed.) Psychiatric Psychiatric: Present oriented to time, oriented to person, oriented to place, speech is normal and memory intact Results Labs Result diagrams: 09/11/21 06:03 09/11/21 06:03 Labs: Abnormal lab results 09/10/21 09/10/21 09/10/21 Range/Units 14:40 14:40 14:40 RBC 2.51 L (3.59-5.38) M/mcL Hgb 8.9 L (11.2-15.7) g/dL Hct 26.7 L (34.1-44.9) % MCV 106.4 H (80.0-100.0) fL MCH 35.5 H (26.0-34.0) pg RDW 16.8 H (11.5-14.5) % Plt Count 89 L (140-440) K/mcL MPV 10.9 H (7.4-10.4) fL Platelet Estimate Decreased A (Normal) RBC Morphology Abnormal A (Normal) Anisocytosis 1+ A (None Seen) Macrocytosis 1+ A (None Seen) PT (11.9-14.5) sec INR (0.9-1.1) VBG Lactic Acid (0.5-2.0) mmol/L Chloride (96-108) mmol/L Carbon Dioxide 16 L (22-30) mmol/L BUN 35 H (8-23) mg/dL Creatinine 5.2 H* (0.6-1.1) mg/dL Uric Acid (2.5-8.0) mg/dL Calcium 8.3 L (8.6-10.4) mg/dL Total Bilirubin (0.1-1.0) mg/dL Direct Bilirubin (<0.3) mg/dL AST (<32) U/L Total Protein (5.9-8.4) gm/dL Albumin (3.2-5.2) gm/dL Urine Appearance (Clear) Urine Protein (Negative) mg/dL Urine Ketones (Negative) mg/dL Urine Occult Blood (Negative) yael/mcL Ur Leukocyte Esterase (Negative) /uL Urine RBC (0-1) /hpf Urine WBC (0-4) /hpf Urine Bacteria (0) /hpf 09/10/21 09/10/21 09/10/21 Range/Units 14:40 14:40 19:22 RBC (3.59-5.38) M/mcL Hgb (11.2-15.7) g/dL Hct (34.1-44.9) % MCV (80.0-100.0) fL MCH (26.0-34.0) pg RDW (11.5-14.5) % Plt Count (140-440) K/mcL MPV (7.4-10.4) fL Platelet Estimate (Normal) RBC Morphology (Normal) Anisocytosis (None Seen) Macrocytosis (None Seen) PT 22.9 H (11.9-14.5) sec INR 1.9 H (0.9-1.1) VBG Lactic Acid (0.5-2.0) mmol/L Chloride (96-108) mmol/L Carbon Dioxide (22-30) mmol/L BUN (8-23) mg/dL Creatinine (0.6-1.1) mg/dL Uric Acid (2.5-8.0) mg/dL Calcium (8.6-10.4) mg/dL Total Bilirubin (0.1-1.0) mg/dL Direct Bilirubin 0.4 H (<0.3) mg/dL AST 33 H (<32) U/L Total Protein (5.9-8.4) gm/dL Albumin 3.1 L (3.2-5.2) gm/dL Urine Appearance Cloudy A (Clear) Urine Protein >=300 mg/dl A (Negative) mg/dL Urine Ketones Trace A (Negative) mg/dL Urine Occult Blood Large A (Negative) yael/mcL Ur Leukocyte Esterase Large A (Negative) /uL Urine RBC > 182 H (0-1) /hpf Urine WBC > 182 H (0-4) /hpf Urine Bacteria Many A (0) /hpf 09/10/21 09/11/21 09/11/21 Range/Units 21:02 06:03 06:03 RBC 2.20 L (3.59-5.38) M/mcL Hgb 7.6 L (11.2-15.7) g/dL Hct 24.5 L (34.1-44.9) % MCV 111.4 H (80.0-100.0) fL MCH 34.5 H (26.0-34.0) pg RDW 17.1 H (11.5-14.5) % Plt Count 64 L (140-440) K/mcL MPV 10.8 H (7.4-10.4) fL Platelet Estimate (Normal) RBC Morphology (Normal) Anisocytosis (None Seen) Macrocytosis (None Seen) PT (11.9-14.5) sec INR (0.9-1.1) VBG Lactic Acid < 0.2 L (0.5-2.0) mmol/L Chloride 111 H (96-108) mmol/L Carbon Dioxide 14 L (22-30) mmol/L BUN 33 H (8-23) mg/dL Creatinine 4.9 H (0.6-1.1) mg/dL Uric Acid 12.1 H (2.5-8.0) mg/dL Calcium 7.7 L (8.6-10.4) mg/dL Total Bilirubin 1.1 H (0.1-1.0) mg/dL Direct Bilirubin 0.5 H (<0.3) mg/dL AST (<32) U/L Total Protein 5.5 L (5.9-8.4) gm/dL Albumin 3.1 L (3.2-5.2) gm/dL Urine Appearance (Clear) Urine Protein (Negative) mg/dL Urine Ketones (Negative) mg/dL Urine Occult Blood (Negative) yael/mcL Ur Leukocyte Esterase (Negative) /uL Urine RBC (0-1) /hpf Urine WBC (0-4) /hpf Urine Bacteria (0) /hpf Diabetes panel 09/10/21 09/10/21 09/11/21 Range/Units 14:40 14:40 06:03 Sodium 137 140 (133-145) mmol/L Potassium 4.0 3.8 (3.3-5.1) mmol/L Chloride 106 111 H (96-108) mmol/L Carbon Dioxide 16 L 14 L (22-30) mmol/L BUN 35 H 33 H (8-23) mg/dL Creatinine 5.2 H* 4.9 H (0.6-1.1) mg/dL Glucose 89 80 (70-105) mg/dL Calcium 8.3 L 7.7 L (8.6-10.4) mg/dL AST 33 H 28 (<32) U/L ALT 19 15 (<40) U/L Alkaline Phosphatase 69 55 (39-117) U/L Total Protein 6.0 5.5 L (5.9-8.4) gm/dL Albumin 3.1 L 3.1 L (3.2-5.2) gm/dL Triglycerides 41 (<150) mg/dL Calcium panel 09/10/21 09/10/21 09/11/21 Range/Units 14:40 14:40 06:03 Calcium 8.3 L 7.7 L (8.6-10.4) mg/dL Phosphorus 3.9 (2.5-4.5) mg/dL Albumin 3.1 L 3.1 L (3.2-5.2) gm/dL Pituitary panel 09/10/21 09/11/21 Range/Units 14:40 06:03 Sodium 137 140 (133-145) mmol/L Potassium 4.0 3.8 (3.3-5.1) mmol/L Chloride 106 111 H (96-108) mmol/L Carbon Dioxide 16 L 14 L (22-30) mmol/L BUN 35 H 33 H (8-23) mg/dL Creatinine 5.2 H* 4.9 H (0.6-1.1) mg/dL Glucose 89 80 (70-105) mg/dL Calcium 8.3 L 7.7 L (8.6-10.4) mg/dL Adrenal panel 09/10/21 09/10/21 09/11/21 Range/Units 14:40 14:40 06:03 Sodium 137 140 (133-145) mmol/L Potassium 4.0 3.8 (3.3-5.1) mmol/L Chloride 106 111 H (96-108) mmol/L Carbon Dioxide 16 L 14 L (22-30) mmol/L BUN 35 H 33 H (8-23) mg/dL Creatinine 5.2 H* 4.9 H (0.6-1.1) mg/dL Glucose 89 80 (70-105) mg/dL Calcium 8.3 L 7.7 L (8.6-10.4) mg/dL Total Bilirubin 1.0 1.1 H (0.1-1.0) mg/dL AST 33 H 28 (<32) U/L ALT 19 15 (<40) U/L Alkaline Phosphatase 69 55 (39-117) U/L Total Protein 6.0 5.5 L (5.9-8.4) gm/dL Albumin 3.1 L 3.1 L (3.2-5.2) gm/dL All other labs normal. Imaging CT scan - abdomen: report reviewed and image reviewed CT scan - pelvis: report reviewed and image reviewed A/P Narrative A/P Narrative: Rani is an 81-year-old woman with a history of kidney stones who had a left ureteral stent placed in October 2020. We will schedule her several times for exchange of the stent under treatment for stones but each time the surgery had sore for stone she is currently scheduled to have a stent exchange tomorrow, September 12. Yesterday she presented to the emergency department with worsening weakness and lightheadedness. 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 There is no evidence of hydronephrosis. She does appear to have some other issues that are currently being evaluated. She is being hydrated. She has a urinary tract infection that was determined to be Aerococcus, Enterococcus and E. coli. Has multiple drug-resistant. She is currently on Zosyn and vancomycin. The plan is to continue to take her to the operating room tomorrow for exchange of the left ureteral stent. I will likely not treat the stone tomorrow due to presence of significant infection. She will need to be n.p.o. after midnight tonight. We will proceed with this plan as long as she remains stable. I discussed this with her today. We already have a signed consent form for when we plan to this in the office last week. Time Spent With Patient Time: Total time spent is greater than 50% in coordination of care (as documented) at patient's floor/unit and/or counseling patient: Total time spent with greater than 50% in coordination of care (as documented) at patient's floor/unit and/or counseling patient:: Greater than 35 minutes
--- NOTE | 2021-09-11 07:49 | Nephrology Consult Note ---
HPI Data of Consult Patient: known to practice within the last 3 years Consult date: 09/11/21 Requesting physician: Lemuel Downs Primary Care Provider: Marques Tinoco MD Consult Narrative Chief complaint: Weakness Reason for consult: Acute kidney injury History of present illness: Rani Toro is an 81-year-old female with a history of Crohn's disease, atrial fibrillation, hypertension, chronic obstructive pulmonary disease, chronic kidney disease stage 3-4, chronic thrombocytopenia and anemia, a long history of kidney stones, a left ureteral stent placed in October 2020 presented to [facility] ED for weakness. In ED, she was hypotensive, but responded to IV fluids. Her work-up was significant for acute kidney injury on chronic kidney disease. CT Abdomen and Pelvis without contrast on 09/10/21 reported abnormal ascending colon with pneumatosis and dilatation. There is infiltration of pericolonic fat. Etiology is not certain. Malignancy is possible. Ischemic colitis is possible although distribution is atypical. Cirrhosis. Moderate ascites. Bilateral renal calculi. There is a left ureteral stent present. There is a stone adjacent to the distal portion of the stent. Gas within the left renal collecting system. There is no intravesical gas. Emphysematous pyelitis is possible. She was di agnosed with sepsis, admitted and started on Vancomycin and Zosyn. Baseline serum creatinine: 0.9-1.4 (eGFR 35-60) in 2020, 2.1 (eGFR 21) on 08/15/21. Nephrology consultation was requested for acute kidney injury. cc:: CC: Lemuel Downs Constitutional Constitutional: Present weakness EENT Nose, mouth and throat: Absent nasal discharge or sore throat Cardiovascular Cardiovascular: Absent chest pain or palpatations Respiratory Respiratory: Absent cough or dyspnea on exertion Gastrointestinal Gastrointestinal: Absent nausea or vomiting Genitourinary Genitourinary: Present other (Pitts catheter with cloudy reddish urine) Integumentary Integumentary: Absent rash Neurological Neurological: Present weakness Psychiatric Psychiatric: Absent anxiety or panic attacks Hematologic/Lymphatic Hematologic/Lymphatic: Absent easy bleeding Allergic/Immunologic Allergic/Immunologic: Absent tongue swelling or uticaria PFSH PFSH All Active Problems Metabolic acidosis (Acute) Acute renal failure with acute tubular necrosis superimposed on stage 3a chronic kidney disease (Acute) Allergic rhinitis (Chronic) Asthma (Chronic) Chronic kidney disease (CKD), stage III (moderate) (Chronic) COPD (chronic obstructive pulmonary disease) (Chronic) Crohn's disease (Chronic) Hyperlipidemia (Chronic) Kidney stones (Chronic) Overweight (Chronic) Renal osteodystrophy (Chronic) UTI (urinary tract infection) (Chronic) Vitamin D deficiency (Chronic) Hypertensive renal disease (Chronic) Osteoarthritis of right hip (Chronic) Kidney stone (Chronic) Ureteral calculi (Chronic) Recurrent nephrolithiasis (Chronic) Arterial insufficiency (Chronic) Frequent loose stools (Chronic) Fever (Chronic) Hydronephrosis (Chronic) Urinary calculi (Chronic) Immunosuppression (Chronic) 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) Blurry vision, bilateral (Chronic) History of atrial fibrillation (Chronic) History of decreased renal function (Chronic) Chest pain (Chronic) Calcium oxalate renal calculus (Chronic) Urinary tract infection (Chronic) Acute anxiety (Chronic) Pyuria (Chronic) OAB (overactive bladder) (Chronic) Diarrhea (Chronic) Tobacco dependence in remission (Chronic) Seborrheic keratosis (Chronic) Anxiety and depression (Chronic) Tremor (Chronic) Hypomagnesemia (Acute) Retained ureteral stent (Acute) Emphysematous pyelitis (Acute) Medical History Acute exacerbation of chronic bronchitis Alkalosis Allergic rhinitis Anxiety and depression Arterial insufficiency Asthma Atrial fibrillation single episode Calculus of ureter Chronic kidney disease (CKD), stage III (moderate) Peak SCr 1.9, now in low 1's Ferguson U/A and normal kidneys by U/S except for multiple non-obstructing stones COPD (chronic obstructive pulmonary disease) Crohn's disease Terminal ileum cecum and appendix have been removed as well as an additional small portion of bowel Liquidy stool leading to increased fluid loss via GI tract => difficult to get the patient to make 2 L of urine a day to help with recurrent nephrolithiasis Azathioprine Frequent loose stools Crohn's disease and prior surgical treatment thereof Headache Heart problem Hematuria Hydronephrosis Hyperlipidemia Hypertensive renal disease BP is at goal ct low sodium diet monitor BP at home call if any concerns Hypomagnesemia Immunosuppression Needs annual dermatologic evaluation and surveillance Kidney stones Multiple drug resistant organism (MDRO) culture positive To see Dr. Robledo Neoplasm of skin Open wound of knee without complication Osteoarthritis of right hip Overweight Pain in joint, lower leg Palpitations Recurrent nephrolithiasis High urine oxalate and low urine citrate. Improved with calcium supplementation and potassium citrate. Urine pH no longer alkalotic Renal osteodystrophy Seborrheic keratosis Diffuse Tobacco dependence in remission Tremor Ureteral calculi Left ureteral stent in place Urinary calculi Urolithiasis UTI (urinary tract infection) Most recent urinary tract infection was ESBL E. 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 other: Has 1 child smoking status: Former smoker quit date: 07/29/09 alcohol intake frequency: does not drink substance use type: does not use MEDS/ALLERGIES Home Medications and Allergies Home Medications Medication Instructions Recorded Confirmed Type aspirin 81 mg chewable tablet 81 mg PO DAILY tab 01/27/15 09/10/21 History folic acid 800 mcg tablet 800 mcg PO QDAY tab 01/27/15 09/10/21 History potassium citrate 10 mEq (1,080 10 meq PO TID #90 tab 03/02/21 09/10/21 Rx mg) tablet,extended release fuzgoufkczyr-afbwewgv-xjubto tablet 1 tab PO QDAY 03/27/21 09/10/21 History omega 8-uhd-sbu-fish oil 1,000 mg 1 cap PO QDAY 03/27/21 09/10/21 History (120 mg-180 mg) capsule (Fish Oil) buspirone 5 mg tablet 2.5 mg PO QDAY #45 tab 05/09/21 09/10/21 Rx cyanocobalamin (vitamin B-12) 1,000 mcg SUB-Q QMONTH #3 ml 05/09/21 09/10/21 Rx 1,000 mcg/mL injection solution escitalopram oxalate 10 mg tablet 10 mg PO QDAY #90 tab 05/09/21 09/10/21 Rx (Lexapro) fluticasone 100 mcg-salmeterol 50 1 inh INHALATION QDAY #60 ea 05/09/21 09/10/21 Rx mcg/dose blistr powdr for inhalation (Wixela Inhub) metoprolol succinate 25 mg 25 mg PO HS #90 tab 05/09/21 09/10/21 Rx tablet,extended release 24 hr pravastatin 40 mg tablet 40 mg PO HS #90 tab 05/09/21 09/10/21 Rx cetirizine 10 mg tablet (Zyrtec) 10 mg PO QDAY PRN 09/08/21 09/10/21 History cholecalciferol (vitamin D3) 25 25 mcg PO QDAY 09/08/21 09/10/21 History mcg (1,000 unit) capsule (Vitamin D3) azathioprine 50 mg tablet (Imuran) 50 mg PO QDAY 09/11/21 09/11/21 History calcium citrate 250 mg PO BID 09/11/21 09/11/21 History magnesium oxide 400 mg PO QDAY 09/11/21 09/11/21 History mirabegron 50 mg tablet,extended 50 mg PO QDAY 09/11/21 09/11/21 History release 24 hr (Myrbetriq) Allergies Allergy/AdvReac Type Severity Reaction Status Date / Time Iodinated Contrast Media Allergy Mild Hives Verified 09/11/21 05:11 [Iodinated Contrast Media - IV Dye] Physical Examination Vital Signs Vital signs: Temp Pulse Resp BP Pulse Ox 97.7 F 72 20 91/55 100 09/10/21 14:17 09/11/21 06:47 09/11/21 06:47 09/11/21 06:04 09/11/21 06:47 General Appearance General appearance: obese and chronically ill EENT EENT: mucous membranes moist Neck Neck: no JVD and supple Respiratory Respiratory: clear Cardiovascular Cardiology: regular rate Gastrointestinal Gastrointestinal: no tenderness and distended Integumentary Integumentary: warm and dry Neurologic Neurologic: no focal deficit and alert and oriented x3 Psychiatric Psychiatric: mood/affect appropriate and cooperative Results Lab Results Result Diagrams: 09/11/21 06:03 09/11/21 06:03 Lab results: Most recent lab results Calcium 7.7 mg/dL (8.6-10.4) L 09/11/21 06:03 Phosphorus 3.9 mg/dL (2.5-4.5) 09/11/21 06:03 Magnesium 1.8 mg/dL (1.6-2.5) 09/11/21 06:03 A/P Assessment and plan (1) Acute renal failure with acute tubular necrosis superimposed on stage 3a chronic kidney disease: Assessment and plan: Rani Toro is an 81-year-old female with a history of Crohn's disease, atrial fibrillation, hypertension, chronic obstructive pulmonary disease, chronic kidney disease stage 3-4, chronic thrombocytopenia and anemia, a long history of kidney stones, a left ureteral stent placed in October 2020 presented to [facility] ED for weakness. In ED, she was hypotensive, but responded to IV fluids. Her work-up was significant for acute kidney injury on chronic kidney disease. CT Abdomen and Pelvis without contrast on 09/10/21 reported abnormal ascending colon with pneumatosis and dilatation. There is infiltration of pericolonic fat. Etiology is not certain. Malignancy is possible. Ischemic colitis is possible although distribution is atypical. Cirrhosis. Moderate ascites. Bilateral renal calculi. There is a left ureteral stent present. There is a stone adjacent to the distal portion of the stent. Gas within the left renal collecting system. There is no intravesical gas. Emphysematous pyelitis is possible. She was diagnosed with sepsis, admitted and started on Vancomycin and Zosyn. Baseline serum creatinine: 0.9-1.4 (eGFR 35-60) in 2020, 2.1 (eGFR 21) on 08/15/21. Nephrology consultation was requested for acute kidney injury. Acute kidney injury, likely acute tubular necrosis and/orobstructive nephropathyassociated with emphysematous pyelonephritis, nonfunctional right kidney on chronic kidney disease stage 3-4 with initial metabolic acidosis, present on arrival. There is no recent history of IV contrast administration or NSAID use. Intravascular volume depletion treated with adequate IV fluid resuscitation. Previous workup: NM Renal Scan on 08/31/21: Right kidney significant delayed excretion of radiotracer or obstruction. Workup: Urinalysis on 09/10/21: Green, Cloudy, pH 6.0, SG 1.020, protein >300, blood large, leukocyte esterase large, urine WBC >182, urine culture pending. CT Abdomen and Pelvis without contrast on 09/10/21: Abnormal ascending colon with pneumatosis and dilatation. There is infiltration of pericolonic fat. Etiology is not certain. Malignancy is possible. Ischemic colitis is possible although distribution is atypical. Cirrhosis. Moderate ascites. Bilateral renal calculi. There is a left ureteral stent present. There is a stone adjacent to the distal portion of the stent. Gas within the left renal collecting system. There is no intravesical gas. Emphysematous pyelitis is possible. Progress: Serum creatinine decreased from 5.2 to 4.9 in the past 12 hours. Baseline serum creatinine: 0.9-1.4 (eGFR 35-60) in 2020, 2.1 (eGFR 21) on 08/15/21. Urine output: ~100 ml reported in the past 12 hours. Hyperchloremic metabolic acidosis. No significant fluid overload. No uremic symptoms. Recommendations/Plan: Acute hemodialysis need anticipated based on anuria/oliguria which requires transfer to a higher level of care. Change Normal Saline to Sodium Bicarbonate 150 mEq in 1L D5W at 100 ml/hour for hyperchloremic metabolic acidosis. Avoid NSAIDs, nephrotoxic medications and IV contrast. Monitor BMP and urine output. Status: Acute (2) Metabolic acidosis: Status: Acute Time Spent With Patient Time: Total time spent is greater than 50% in coordination of care (as documented) at patient's floor/unit and/or counseling patient:
[2021-09-11] MEDS: PIPERACILLIN SODIUM/TAZOBACTAM 2.25 GM in DEXTROSE 5% IN WATER 50 ML IV SCH ×3 (07:55→22:25)
[2021-09-11 08:12] LABS: Anisocytosis 1+ (None Seen); Eosinophils % (Manual) 3 % (0-7); Hypochromasia 1+ (None Seen); Lymphocytes % 17 % (15-49); Macrocytosis 2+ (None Seen); Monocytes % (Manual) 8 % (1-12); Platelet Estimate DECREASED (Normal); RBC Morphology ABNORMAL (Normal); Reactive Lymphocytes 2 % (0-2); Segmented Neutrophils % 70 % (38-78)
[2021-09-11] MEDS: CALCIUM CARBONATE 500 MG TAB.CHEW CHEWED SCH (08:19)
[2021-09-11] MEDS: ASPIRIN 81 MG TAB.CHEW PO SCH (08:19)
[2021-09-11] MEDS: ESCITALOPRAM 10 MG TABLET PO SCH (08:19)
[2021-09-11] MEDS: FOLIC ACID 1 MG TABLET PO SCH (08:19)
[2021-09-11] MEDS: busPIRone 5 MG TABLET PO SCH (08:24)
--- NOTE | 2021-09-11 08:38 | Ultrasound Report ---
INDICATION: ascites/cirrhosis. Doppler veins, r/o thrombus TECHNIQUE: Grayscale and color flow Doppler spectral imaging COMPARISON: Previous CT scan dated 09/10/2021 FINDINGS: Gallbladder:Previous cholecystectomy Common bile duct:No intra or extrahepatic bile duct dilatation.. Common bile duct measures5 mm Liver:Nodular liver contour consistent with cirrhosis. There is no focal hepatic mass. No evidence for hepatocellular carcinoma. There is ascites. There is a recanalized umbilical vein.. Liver [id number] cm Portal vein:Normal hepatopedal portal venous flow Pancreas:Visualized portions of the pancreas are normal IMPRESSION: 1. Cirrhosis 2. No hepatic mass. No evidence for hepatocellular carcinoma 3. Moderate ascites. Recanalized umbilical vein Interpreted and Authenticated by: Del Ng 09/11/21
[2021-09-11] MEDS: FLUTICASONE/SALMETEROL 50/100 INHALER #14 INH SCH (08:40)
--- NOTE | 2021-09-11 08:52 | General Surgery Consult Note ---
HPI Data of Consult Patient: new to practice Consult date: 09/10/21 Primary Care Provider: Marques Tinoco MD Consult Narrative History of present illness: resents to the ED with increasing weakness and lightheadedness. Patient had hard time walking to the bathroom without having to sit down from feeling lightheadedness. Denies fever chills nausea vomiting. Denies chest pain or stomach pain. Abnormal bowel function from Crohn's. Has a history of chronic kidney disease and follows with Dr. Angeles. Chronic thrombocytopenia and anemia. Old notes report a single episode of atrial fibrillation but none since; and confirmed by pt. She has a left kidney stents post removed by Dr. Aparicio on Saturday. On evaluation the ED she was hypotensive initially which responded to IV fluid. She is work-up but found to have acute acute kidney injury on chronic kidney disease. Wound to have pyelonephritis on the left. I was asked to see the patient secondary to possible pneumatosis in the cecum. Of note patient has a significant past surgical history of Crohn's disease diagnosed in the 70s at some point in the distant past he underwent a extended right hemicolectomy for a stricture. Since that time she has done well from a GI standpoint, she follows up with a GI provider in [place] [facility] who last performed a colonoscope and 2018 no masses were identified, no inflammation was defied and her stool studies have been significant for no inflammation. Patient this morning denies abdominal pain, no nausea vomiting fevers or chills. She has no GI complaints at this time. Lactate in the emergency room was less than 0.2, white count was within normal limits. cc:: CC: Lemuel Downs Review of Systems Review of systems: All systems are reviewed, negative other than above PFSH PFSH All Active Problems Metabolic acidosis (Acute) Acute renal failure with acute tubular necrosis superimposed on stage 3a chronic kidney disease (Acute) Allergic rhinitis (Chronic) Asthma (Chronic) Chronic kidney disease (CKD), stage III (moderate) (Chronic) COPD (chronic obstructive pulmonary disease) (Chronic) Crohn's disease (Chronic) Hyperlipidemia (Chronic) Kidney stones (Chronic) Overweight (Chronic) Renal osteodystrophy (Chronic) UTI (urinary tract infection) (Chronic) Vitamin D deficiency (Chronic) Hypertensive renal disease (Chronic) Osteoarthritis of right hip (Chronic) Kidney stone (Chronic) Ureteral calculi (Chronic) Recurrent nephrolithiasis (Chronic) Arterial insufficiency (Chronic) Frequent loose stools (Chronic) Fever (Chronic) Hydronephrosis (Chronic) Urinary calculi (Chronic) Immunosuppression (Chronic) 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) Blurry vision, bilateral (Chronic) History of atrial fibrillation (Chronic) History of decreased renal function (Chronic) Chest pain (Chronic) Calcium oxalate renal calculus (Chronic) Urinary tract infection (Chronic) Acute anxiety (Chronic) Pyuria (Chronic) OAB (overactive bladder) (Chronic) Diarrhea (Chronic) Tobacco dependence in remission (Chronic) Seborrheic keratosis (Chronic) Anxiety and depression (Chronic) Tremor (Chronic) Hypomagnesemia (Acute) Retained ureteral stent (Acute) Emphysematous pyelitis (Acute) Medical History Acute exacerbation of chronic bronchitis Alkalosis Allergic rhinitis Anxiety and depression Arterial insufficiency Asthma Atrial fibrillation single episode Calculus of ureter Chronic kidney disease (CKD), stage III (moderate) Peak SCr 1.9, now in low 1's [place] U/A and normal kidneys by U/S except for multiple non-obstructing stones COPD (chronic obstructive pulmonary disease) Crohn's disease Terminal ileum cecum and appendix have been removed as well as an additional small portion of bowel Liquidy stool leading to increased fluid loss via GI tract => difficult to get the patient to make 2 L of urine a day to help with recurrent nephrolithiasis Azathioprine Frequent loose stools Crohn's disease and prior surgical treatment thereof Headache Heart problem Hematuria Hydronephrosis Hyperlipidemia Hypertensive renal disease BP is at goal ct low sodium diet monitor BP at home call if any concerns Hypomagnesemia Immunosuppression Needs annual dermatologic evaluation and surveillance Kidney stones Multiple drug resistant organism (MDRO) culture positive To see Dr. Robledo Neoplasm of skin Open wound of knee without complication Osteoarthritis of right hip Overweight Pain in joint, lower leg Palpitations Recurrent nephrolithiasis High urine oxalate and low urine citrate. Improved with calcium supplementation and potassium citrate. Urine pH no longer alkalotic Renal osteodystrophy Seborrheic keratosis Diffuse Tobacco dependence in remission Tremor Ureteral calculi Left ureteral stent in place Urinary calculi Urolithiasis UTI (urinary tract infection) Most recent urinary tract infection was ESBL E. 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 other: Has 1 child smoking status: Former smoker quit date: 07/29/09 alcohol intake frequency: does not drink substance use type: does not use MEDS/ALLERGIES Home Medications and Allergies Home Medications Medication Instructions Recorded Confirmed Type aspirin 81 mg chewable tablet 81 mg PO DAILY tab 01/27/15 09/10/21 History folic acid 800 mcg tablet 800 mcg PO QDAY tab 01/27/15 09/10/21 History potassium citrate 10 mEq (1,080 10 meq PO TID #90 tab 03/02/21 09/10/21 Rx mg) tablet,extended release immxbwzwipae-wvyrhvdg-aormgf tablet 1 tab PO QDAY 03/27/21 09/10/21 History omega 1-khq-wxq-fish oil 1,000 mg 1 cap PO QDAY 03/27/21 09/10/21 History (120 mg-180 mg) capsule (Fish Oil) buspirone 5 mg tablet 2.5 mg PO QDAY #45 tab 05/09/21 09/10/21 Rx cyanocobalamin (vitamin B-12) 1,000 mcg SUB-Q QMONTH #3 ml 05/09/21 09/10/21 Rx 1,000 mcg/mL injection solution escitalopram oxalate 10 mg tablet 10 mg PO QDAY #90 tab 05/09/21 09/10/21 Rx (Lexapro) fluticasone 100 mcg-salmeterol 50 1 inh INHALATION QDAY #60 ea 05/09/21 09/10/21 Rx mcg/dose blistr powdr for inhalation (Wixela Inhub) metoprolol succinate 25 mg 25 mg PO HS #90 tab 05/09/21 09/10/21 Rx tablet,extended release 24 hr pravastatin 40 mg tablet 40 mg PO HS #90 tab 05/09/21 09/10/21 Rx cetirizine 10 mg tablet (Zyrtec) 10 mg PO QDAY PRN 09/08/21 09/10/21 History cholecalciferol (vitamin D3) 25 25 mcg PO QDAY 09/08/21 09/10/21 History mcg (1,000 unit) capsule (Vitamin D3) azathioprine 50 mg tablet (Imuran) 50 mg PO QDAY 09/11/21 09/11/21 History calcium citrate 250 mg PO BID 09/11/21 09/11/21 History magnesium oxide 400 mg PO QDAY 09/11/21 09/11/21 History mirabegron 50 mg tablet,extended 50 mg PO QDAY 09/11/21 09/11/21 History release 24 hr (Myrbetriq) Allergies Allergy/AdvReac Type Severity Reaction Status Date / Time Iodinated Contrast Media Allergy Mild Hives Verified 09/11/21 05:11 [Iodinated Contrast Media - IV Dye] Physical Examination Vital Signs Vital signs: Temp Pulse Resp BP Pulse Ox 97.7 F 67 23 H 101/43 100 09/10/21 14:17 09/11/21 07:01 09/11/21 08:04 09/11/21 07:01 09/11/21 07:01 General physical appearance General physical exam: well developed, well nourished and no distress Eyes Eye exam: PERRL and normal ocular movement ENT ENT exam: normal pinna, normal nares, normal mucosa, no hearing loss and no congestion Head Head exam IM: Present atraumatic and normocephalic Neck Neck exam: no masses, no bruits, trachea midline, no lymphadenopathy and no venous distension Cardiovascular Cardiovascular exam IM: Present normal rate and rhythm Respiratory Respiratory exam: normal expansion, normal respiratory effort, clear to percussion and clear to auscultation Abdomen Abdomen: Present soft, non tender and bowel sounds Hernia: Present none Genitourinary Genitourinary (Female): Present normal external genitalia Rectum Rectum: Present normal sphincter tone, no hemorrhoids, no tenderness, no masses and no bleeding Integumentary Integumentary: Present no rash, no growths and no abnormal pigmentation Neurologic Neurologic: Present normal coordination and normal sensation Musculoskeletal Musculoskeletal: Present normal gait and normal posture Psychiatric Psychiatric: Present oriented to time, oriented to person, oriented to place, speech is normal and memory intact Results Labs Result diagrams: 09/11/21 06:03 09/11/21 06:03 Labs: Abnormal lab results 09/10/21 09/10/21 09/10/21 Range/Units 14:40 14:40 14:40 RBC 2.51 L (3.59-5.38) M/mcL Hgb 8.9 L (11.2-15.7) g/dL Hct 26.7 L (34.1-44.9) % MCV 106.4 H (80.0-100.0) fL MCH 35.5 H (26.0-34.0) pg RDW 16.8 H (11.5-14.5) % Plt Count 89 L (140-440) K/mcL MPV 10.9 H (7.4-10.4) fL Platelet Estimate Decreased A (Normal) RBC Morphology Abnormal A (Normal) Hypochromasia (None Seen) Anisocytosis 1+ A (None Seen) Macrocytosis 1+ A (None Seen) PT (11.9-14.5) sec INR (0.9-1.1) VBG Lactic Acid (0.5-2.0) mmol/L Chloride (96-108) mmol/L Carbon Dioxide 16 L (22-30) mmol/L BUN 35 H (8-23) mg/dL Creatinine 5.2 H* (0.6-1.1) mg/dL Uric Acid (2.5-8.0) mg/dL Calcium 8.3 L (8.6-10.4) mg/dL Total Bilirubin (0.1-1.0) mg/dL Direct Bilirubin (<0.3) mg/dL AST (<32) U/L Total Protein (5.9-8.4) gm/dL Albumin (3.2-5.2) gm/dL Urine Appearance (Clear) Urine Protein (Negative) mg/dL Urine Ketones (Negative) mg/dL Urine Occult Blood (Negative) yael/mcL Ur Leukocyte Esterase (Negative) /uL Urine RBC (0-1) /hpf Urine WBC (0-4) /hpf Urine Bacteria (0) /hpf 09/10/21 09/10/21 09/10/21 Range/Units 14:40 14:40 19:22 RBC (3.59-5.38) M/mcL Hgb (11.2-15.7) g/dL Hct (34.1-44.9) % MCV (80.0-100.0) fL MCH (26.0-34.0) pg RDW (11.5-14.5) % Plt Count (140-440) K/mcL MPV (7.4-10.4) fL Platelet Estimate (Normal) RBC Morphology (Normal) Hypochromasia (None Seen) Anisocytosis (None Seen) Macrocytosis (None Seen) PT 22.9 H (11.9-14.5) sec INR 1.9 H (0.9-1.1) VBG Lactic Acid (0.5-2.0) mmol/L Chloride (96-108) mmol/L Carbon Dioxide (22-30) mmol/L BUN (8-23) mg/dL Creatinine (0.6-1.1) mg/dL Uric Acid (2.5-8.0) mg/dL Calcium (8.6-10.4) mg/dL Total Bilirubin (0.1-1.0) mg/dL Direct Bilirubin 0.4 H (<0.3) mg/dL AST 33 H (<32) U/L Total Protein (5.9-8.4) gm/dL Albumin 3.1 L (3.2-5.2) gm/dL Urine Appearance Cloudy A (Clear) Urine Protein >=300 mg/dl A (Negative) mg/dL Urine Ketones Trace A (Negative) mg/dL Urine Occult Blood Large A (Negative) yael/mcL Ur Leukocyte Esterase Large A (Negative) /uL Urine RBC > 182 H (0-1) /hpf Urine WBC > 182 H (0-4) /hpf Urine Bacteria Many A (0) /hpf 09/10/21 09/11/21 09/11/21 Range/Units 21:02 06:03 06:03 RBC 2.20 L (3.59-5.38) M/mcL Hgb 7.6 L (11.2-15.7) g/dL Hct 24.5 L (34.1-44.9) % MCV 111.4 H (80.0-100.0) fL MCH 34.5 H (26.0-34.0) pg RDW 17.1 H (11.5-14.5) % Plt Count 64 L (140-440) K/mcL MPV 10.8 H (7.4-10.4) fL Platelet Estimate Decreased A (Normal) RBC Morphology Abnormal A (Normal) Hypochromasia 1+ A (None Seen) Anisocytosis 1+ A (None Seen) Macrocytosis 2+ A (None Seen) PT (11.9-14.5) sec INR (0.9-1.1) VBG Lactic Acid < 0.2 L (0.5-2.0) mmol/L Chloride 111 H (96-108) mmol/L Carbon Dioxide 14 L (22-30) mmol/L BUN 33 H (8-23) mg/dL Creatinine 4.9 H (0.6-1.1) mg/dL Uric Acid 12.1 H (2.5-8.0) mg/dL Calcium 7.7 L (8.6-10.4) mg/dL Total Bilirubin 1.1 H (0.1-1.0) mg/dL Direct Bilirubin 0.5 H (<0.3) mg/dL AST (<32) U/L Total Protein 5.5 L (5.9-8.4) gm/dL Albumin 3.1 L (3.2-5.2) gm/dL Urine Appearance (Clear) Urine Protein (Negative) mg/dL Urine Ketones (Negative) mg/dL Urine Occult Blood (Negative) yael/mcL Ur Leukocyte Esterase (Negative) /uL Urine RBC (0-1) /hpf Urine WBC (0-4) /hpf Urine Bacteria (0) /hpf Diabetes panel 09/10/21 09/10/21 09/11/21 Range/Units 14:40 14:40 06:03 Sodium 137 140 (133-145) mmol/L Potassium 4.0 3.8 (3.3-5.1) mmol/L Chloride 106 111 H (96-108) mmol/L Carbon Dioxide 16 L 14 L (22-30) mmol/L BUN 35 H 33 H (8-23) mg/dL Creatinine 5.2 H* 4.9 H (0.6-1.1) mg/dL Glucose 89 80 (70-105) mg/dL Calcium 8.3 L 7.7 L (8.6-10.4) mg/dL AST 33 H 28 (<32) U/L ALT 19 15 (<40) U/L Alkaline Phosphatase 69 55 (39-117) U/L Total Protein 6.0 5.5 L (5.9-8.4) gm/dL Albumin 3.1 L 3.1 L (3.2-5.2) gm/dL Triglycerides 41 (<150) mg/dL Calcium panel 09/10/21 09/10/21 09/11/21 Range/Units 14:40 14:40 06:03 Calcium 8.3 L 7.7 L (8.6-10.4) mg/dL Phosphorus 3.9 (2.5-4.5) mg/dL Albumin 3.1 L 3.1 L (3.2-5.2) gm/dL Pituitary panel 09/10/21 09/11/21 Range/Units 14:40 06:03 Sodium 137 140 (133-145) mmol/L Potassium 4.0 3.8 (3.3-5.1) mmol/L Chloride 106 111 H (96-108) mmol/L Carbon Dioxide 16 L 14 L (22-30) mmol/L BUN 35 H 33 H (8-23) mg/dL Creatinine 5.2 H* 4.9 H (0.6-1.1) mg/dL Glucose 89 80 (70-105) mg/dL Calcium 8.3 L 7.7 L (8.6-10.4) mg/dL Adrenal panel 09/10/21 09/10/21 09/11/21 Range/Units 14:40 14:40 06:03 Sodium 137 140 (133-145) mmol/L Potassium 4.0 3.8 (3.3-5.1) mmol/L Chloride 106 111 H (96-108) mmol/L Carbon Dioxide 16 L 14 L (22-30) mmol/L BUN 35 H 33 H (8-23) mg/dL Creatinine 5.2 H* 4.9 H (0.6-1.1) mg/dL Glucose 89 80 (70-105) mg/dL Calcium 8.3 L 7.7 L (8.6-10.4) mg/dL Total Bilirubin 1.0 1.1 H (0.1-1.0) mg/dL AST 33 H 28 (<32) U/L ALT 19 15 (<40) U/L Alkaline Phosphatase 69 55 (39-117) U/L Total Protein 6.0 5.5 L (5.9-8.4) gm/dL Albumin 3.1 L 3.1 L (3.2-5.2) gm/dL All other labs normal. Imaging CT scan - abdomen: image reviewed A/P Assessment and plan (1) Acute renal failure with acute tubular necrosis superimposed on stage 3a chronic kidney disease: Status: Acute (2) Crohn's disease: Assessment and plan: This is a pleasant 81-year-old female with a history of Crohn's disease with questionable cecal mass on CT scan. Patient is status post ileal ectomy, the area of concern is around the anastomosis. Patient has no white count, patient has a normal lactate and a benign abdominal exam leading to a very low suspicion for pneumatosis. She has been followed by an outpatient regulatory services consultant and has been scoped recently which makes a cecal mass unlikely. I will continue to follow with you. Status: Chronic Comment: Terminal ileum cecum and appendix have been removed as well as an additional small portion of bowel Liquidy stool leading to increased fluid loss via GI tract => difficult to get the patient to make 2 L of urine a day to help with recurrent nephrolithiasis Azathioprine Qualifiers: Gastrointestinal tract location: small and large intestine Digestive disease complication type: other complication Qualified Code(s): K50.818 - Crohn's disease of both small and large intestine with other complication Time Spent With Patient Time: Total time spent is greater than 50% in coordination of care (as documented) at patient's floor/unit and/or counseling patient:
--- NOTE | 2021-09-11 11:05 | Internal Med Progress Note ---
Medical - Auxillary Note Subjective Patient Information: Note initiated : 09/11/21 at 11:03 am Called by ED concerning patient. Dr Lane to see patient Pertinent info: On-Call Note I see you have scheduled the patient to change the stent on 09/14/2021. As her GFR declined recently, I sent her for Nuclear scan and I was surprised to see the decline in function is on the RIGHT side and she now depends almost exclusively on her stented LEFT kidney to remain off HD. Last CT Scan in October 2020: A seven cm simple cyst, in the superior pole of the left kidney, is unchanged. A 9 mm stone in the mid left ureter (L3) results in moderate left hydroureter/hydronephrosis. A cluster of five stones in the left renal pelvis range up to 15 mm. Two nonobstructing stones seen within a superior calyx of the left kidney both less than 3 mm. There are three 2 mm stones noted in the inferior calyx of the left kidney. Nonobstructing stones are also seen in the right upper collecting system: 12 mm inferior calyx, 2 mm inferior calyx and three in the superior calyces all less than 2 mm. Abnormal Labs 09/11/21 09/11/21 09/10/21 06:03 06:03 21:02 RBC 2.20 L Hgb 7.6 L Hct 24.5 L MCV 111.4 H MCH 34.5 H RDW 17.1 H Plt Count 64 L MPV 10.8 H Platelet Estimate Decreased A RBC Morphology Abnormal A Hypochromasia 1+ A Anisocytosis 1+ A Macrocytosis 2+ A PT INR VBG Lactic Acid < 0.2 L Chloride 111 H Carbon Dioxide 14 L BUN 33 H Creatinine 4.9 H Uric Acid 12.1 H Calcium 7.7 L Total Bilirubin 1.1 H Direct Bilirubin 0.5 H AST Total Protein 5.5 L Albumin 3.1 L Urine Appearance Urine Protein Urine Ketones Urine Occult Blood Ur Leukocyte Esterase Urine RBC Urine WBC Urine Bacteria 09/10/21 09/10/21 09/10/21 19:22 14:40 14:40 RBC Hgb Hct MCV MCH RDW Plt Count MPV Platelet Estimate RBC Morphology Hypochromasia Anisocytosis Macrocytosis PT 22.9 H INR 1.9 H VBG Lactic Acid Chloride Carbon Dioxide BUN Creatinine Uric Acid Calcium Total Bilirubin Direct Bilirubin 0.4 H AST 33 H Total Protein Albumin 3.1 L Urine Appearance Cloudy A Urine Protein >=300 mg/dl A Urine Ketones Trace A Urine Occult Blood Large A Ur Leukocyte Esterase Large A Urine RBC > 182 H Urine WBC > 182 H Urine Bacteria Many A 09/10/21 09/10/21 09/10/21 14:40 14:40 14:40 RBC 2.51 L Hgb 8.9 L Hct 26.7 L MCV 106.4 H MCH 35.5 H RDW 16.8 H Plt Count 89 L MPV 10.9 H Platelet Estimate Decreased A RBC Morphology Abnormal A Hypochromasia Anisocytosis 1+ A Macrocytosis 1+ A PT INR VBG Lactic Acid Chloride Carbon Dioxide 16 L BUN 35 H Creatinine 5.2 H* Uric Acid Calcium 8.3 L Total Bilirubin Direct Bilirubin AST Total Protein Albumin Urine Appearance Urine Protein Urine Ketones Urine Occult Blood Ur Leukocyte Esterase Urine RBC Urine WBC Urine Bacteria My concern remains recent decline in the function of the RIGHT KIDNEY as evidenced by last week's renal nuclear medicine scan.
[2021-09-11] MEDS: SODIUM BICARBONATE VIAL 150 MEQ in DEXTROSE 5% IN WATER 850 ML IV SCH (11:18)
[2021-09-11] MEDS ORDERED: ONDANSETRON 4 MG/2 ML VIAL ONE (11:32)
[2021-09-11] MEDS ORDERED: MAGNESIUM SULFATE 2 GM/50 ML BAG IV ONE (11:32)
[2021-09-11] MEDS ORDERED: LIDOCAINE HCL/PF 100 MG/5 ML SYRINGE IV ONE (11:32)
[2021-09-11] MEDS ORDERED: fentaNYL 100 MCG/2 ML VIAL IV ONE (11:32)
[2021-09-11] MEDS ORDERED: PROPOFOL 200 MG/20 ML VIAL IV ONE (11:32)
[2021-09-11] MEDS ORDERED: PHENYLephrine 1 MG/10 ML SYRINGE (ANEST) ONE (11:32)
[2021-09-11] MEDS ORDERED: KETAMINE 50 MG/ML Syringe (ANEST) IV ONE (11:32)
[2021-09-11] MEDS ORDERED: GLYCOPYRROLATE 0.2 MG/ML VIAL IV ONE (11:32)
[2021-09-11] MEDS ORDERED: DEXAMETHASONE 10 MG/ML VIAL ONE (11:32)
[2021-09-11] MEDS: METOPROLOL SUCCINATE 25 MG TAB.XL.24H PO SCH (20:19)
[2021-09-11] MEDS: ATORVASTATIN 10 MG TABLET PO SCH (20:23)
[2021-09-11] MEDS: MELATONIN 3 MG TABLET PO SCH (20:23)
[2021-09-11] MEDS ORDERED: METOPROLOL SUCCINATE 25 MG TAB.XL.24H PO SCH (21:00)
[2021-09-11] MEDS ORDERED: CALCIUM PO SCH (21:00)
[2021-09-11] MEDS ORDERED: CALCIUM CITRATE 250 MG PO SCH (21:00)
[2021-09-12] MEDS ORDERED: SODIUM BICARBONATE 50 MEQ/50 ML VIAL ONE (04:09)
[2021-09-12] MEDS: SODIUM BICARBONATE VIAL 150 MEQ in DEXTROSE 5% IN WATER 850 ML IV SCH ×2 (04:14→09:02)
[2021-09-12] MEDS: PIPERACILLIN SODIUM/TAZOBACTAM 2.25 GM in DEXTROSE 5% IN WATER 50 ML IV SCH ×2 (05:30→14:34)
[2021-09-12] MEDS: 0.9 % SODIUM CHLORIDE 10 ML SYRINGE IV SCH ×3 (05:31→20:18)
[2021-09-12 06:48] LABS: INR 1.6 (0.9-1.1); Prothrombin Time 20.2 sec (11.9-14.5)
[2021-09-12] MEDS: busPIRone 5 MG TABLET PO SCH (07:21)
[2021-09-12] MEDS: ESCITALOPRAM 10 MG TABLET PO SCH (07:22)
--- NOTE | 2021-09-12 07:34 | Internal Med Progress Note ---
SUBJECTIVE Subjective Patient information: Note initiated : 09/12/21 at 7:32 am Service Date, if different from initiated Date: [] Patient: Rani Toro a 81 y/o F admitted on 09/11/21 for Dizzy. Chief Complaint: [] Interval history: History of present illness: Ms. Toro is a 81 year old F Presents to the ED with increasing weakness and lightheadedness. Patient had hard time walking to the bathroom without having to sit down from feeling li ghtheadedness. Denies fever chills nausea vomiting. Denies chest pain or stomach pain. Abnormal bowel function from Crohn's. Has a history of chronic kidney disease and follows with Dr. Angeles. Chronic thrombocytopenia and anemia. Old notes report a single episode of atrial fibrillation but none since; and confirmed by pt. She has a left kidney stents post removed by Dr. Aparicio on Saturday. On evaluation the ED she was hypotensive initially which responded to IV fluid. She is work-up but found to have acute acute kidney injury on chronic kidney disease. Wound to have pyelonephritis on the left. Case discussed with Dr. Karthik Aparicio. CT abdominal also read as pneumatosis in the colon and case discussed with Dr. Tate who will see the patient in the morning but did not have any recommendations at this point. 09/11 Doing better. Not getting lightheaded like she was before. Poor sleep. 09/12 Patient doing well. Scheduled to get stent out today. IV fluids per nephrology. Chemistry pending. Review of Systems: denies headache/fever/chills/nausea/vomiting/chest or abdominal pain/cough/dyspnea/diarrhea. Otherwise see above. Constitutional Vitals: Vital Signs Temp Pulse Resp BP Pulse Ox 97.9 F 73 15 101/45 99 09/12/21 00:00 09/12/21 06:01 09/12/21 06:01 09/12/21 06:01 09/12/21 06:01 Period Temp Pulse Resp BP Sys/Sotelo Pulse Ox Last 24 Hr 97.3 F-98.2 F 65-75 13-23 91-108/41-50 97-100 Intake and Output 09/11/21 09/12/21 09/12/21 21:59 05:59 13:59 Intake Total 170 1050 50 Output Total 175 100 Balance -5 950 50 Weight 70.562 kg Intake & Output: Intake & Output 09/11/21 09/12/21 09/12/21 21:59 05:59 13:59 Intake Total 170 1050 50 Output Total 175 100 Balance -5 950 50 Weight 70.562 kg Intake: IV 50 1050 50 Zosyn 2.25 gm In Dextrose 5% in 50 50 50 Water 50 ml @ 100 mls/hr IV Q8H AMPARO Rx#:[id number] Sodium Bicarbonate Vial 150 Meq 1000 In Dextrose 5% in Water 850 ml @ 60 mls/hr IV Q20H AMPARO Rx#: [id number] Oral 120 Output: Urine Catheter Amount 175 100 Other: Meal Dinner Percent of Meal Consumed 100% Feeding Ability Independent Urine Appearance Cloudy Urine Color Red Brown Red Brown Stool Size Moderate Stool Consistency Liquid # Bowel Movements 1 Exam: General: Alert, Awake, No acute Distress Eyes/N/T: EOMI, Head/Neck: neck supple, CV: RRR, No murmurs, Pulm: Clear b/l, no wheezing/rhonchi/rales Abd: soft, nontender, BS x4 Ext: no clubbing/cyanosis/edema Neuro: Alert, no focal deficits, moves all extremities, Skin: warm/dry OBJ DATA Labs CBC & Chem 7: 09/12/21 07:26 09/12/21 05:49 Labs: Abnormal Lab Results 09/12/21 09/11/21 09/11/21 05:49 06:03 06:03 RBC 2.20 L Hgb 7.6 L Hct 24.5 L MCV 111.4 H MCH 34.5 H RDW 17.1 H Plt Count 64 L MPV 10.8 H Platelet Estimate Decreased A RBC Morphology Abnormal A Hypochromasia 1+ A Anisocytosis 1+ A Macrocytosis 2+ A PT 20.2 H INR 1.6 H VBG Lactic Acid Chloride 111 H Carbon Dioxide 14 L BUN 33 H Creatinine 4.9 H Uric Acid 12.1 H Calcium 7.7 L Total Bilirubin 1.1 H Direct Bilirubin 0.5 H AST Total Protein 5.5 L Albumin 3.1 L Urine Appearance Urine Protein Urine Ketones Urine Occult Blood Ur Leukocyte Esterase Urine RBC Urine WBC Urine Bacteria 09/10/21 09/10/21 09/10/21 21:02 19:22 14:40 RBC Hgb Hct MCV MCH RDW Plt Count MPV Platelet Estimate RBC Morphology Hypochromasia Anisocytosis Macrocytosis PT INR VBG Lactic Acid < 0.2 L Chloride Carbon Dioxide BUN Creatinine Uric Acid Calcium Total Bilirubin Direct Bilirubin 0.4 H AST 33 H Total Protein Albumin 3.1 L Urine Appearance Cloudy A Urine Protein >=300 mg/dl A Urine Ketones Trace A Urine Occult Blood Large A Ur Leukocyte Esterase Large A Urine RBC > 182 H Urine WBC > 182 H Urine Bacteria Many A 09/10/21 09/10/21 09/10/21 14:40 14:40 14:40 RBC 2.51 L Hgb 8.9 L Hct 26.7 L MCV 106.4 H MCH 35.5 H RDW 16.8 H Plt Count 89 L MPV 10.9 H Platelet Estimate Decreased A RBC Morphology Abnormal A Hypochromasia Anisocytosis 1+ A Macrocytosis 1+ A PT 22.9 H INR 1.9 H VBG Lactic Acid Chloride Carbon Dioxide BUN Creatinine Uric Acid Calcium Total Bilirubin Direct Bilirubin AST Total Protein Albumin Urine Appearance Urine Protein Urine Ketones Urine Occult Blood Ur Leukocyte Esterase Urine RBC Urine WBC Urine Bacteria 09/10/21 14:40 RBC Hgb Hct MCV MCH RDW Plt Count MPV Platelet Estimate RBC Morphology Hypochromasia Anisocytosis Macrocytosis PT INR VBG Lactic Acid Chloride Carbon Dioxide 16 L BUN 35 H Creatinine 5.2 H* Uric Acid Calcium 8.3 L Total Bilirubin Direct Bilirubin AST Total Protein Albumin Urine Appearance Urine Protein Urine Ketones Urine Occult Blood Ur Leukocyte Esterase Urine RBC Urine WBC Urine Bacteria Meds: Medications Acetaminophen (Acetaminophen 325 Mg Tablet) 650 mg PO Q6HP PRN; Protocol PRN Reason: Per Pain Protocol/Fever > 101 Albuterol/Ipratropium (Ipratropium/Albuterol 3 Ml Ampul.Neb) 3 ml NEB Q4HP PRN PRN Reason: Shortness Of Breath Aspirin (Aspirin 81 Mg Tab.Chew) 81 mg PO DAILY [facility] Last Admin: 09/11/21 08:19 Dose: 81 mg Documented by: Atorvastatin Calcium (Atorvastatin 10 Mg Tablet) 10 mg PO [facility] Last Admin: 09/11/21 20:23 Dose: 10 mg Documented by: Buspirone HCl (Buspirone 5 Mg Tablet) 2.5 mg PO DAILY [facility] Last Admin: 09/12/21 07:21 Dose: 2.5 mg Documented by: Calcium Carbonate/Glycine (Calcium Carbonate 500 Mg Tab.Chew) 500 mg CHEWED DAILY [facility] Last Admin: 09/11/21 08:19 Dose: 500 mg Documented by: Escitalopram Oxalate (Escitalopram 10 Mg Tablet) 10 mg PO QDAY [facility] Last Admin: 09/12/21 07:22 Dose: 10 mg Documented by: Folic Acid (Folic Acid 1 Mg Tablet) 1 mg PO DAILY [facility] Last Admin: 09/11/21 08:19 Dose: 1 mg Documented by: Heparin Sodium (Porcine) (Heparin 5,000 Unit/Ml Vial) 5,000 unit SQ Q12 [facility] Potassium Chloride 40 meq/ (Dextrose) 520 mls @ 130 mls/hr IV UD PRN PRN Reason: Potassium < 3 Magnesium Sulfate (Magnesium Sulfate) 2 gm in 50 mls @ 50 mls/hr IV UD PRN PRN Reason: Magnesium </= 1.6 Piperacillin Sod/Tazobactam (Sod 2.25 gm/ Dextrose) 50 mls @ 100 mls/hr IV Q8H [facility] Last Infusion: 09/12/21 06:07 Dose: Infused Documented by: Sodium Bicarbonate 150 meq/ (Dextrose) 1,000 mls @ 60 mls/hr IV Q20H [facility] Last Admin: 09/12/21 04:14 Dose: 60 mls/hr Documented by: Loperamide HCl (Loperamide 2 Mg Capsule) 2 mg PO PRN PRN PRN Reason: Diarrhea Melatonin (Melatonin 3 Mg Tablet) 3 mg PO QHS [facility] Last Admin: 09/11/21 20:23 Dose: 3 mg Documented by: Metoprolol Succinate (Metoprolol Succinate 25 Mg Tab.Xl.24h) 25 mg PO [facility] Last Admin: 09/11/21 20:19 Dose: Not Given Documented by: Metoprolol Tartrate (Metoprolol Tartrate 5 Mg/5 Ml Vial) 5 mg IV Q2HP PRN PRN Reason: Tachyarrhythmias HR>110 Ondansetron HCl (Ondansetron 4 Mg/2 Ml Vial) 4 mg IV Q4HP PRN PRN Reason: Nausea And Vomiting Polyethylene Glycol (Polyethylene Glycol 3350 17 Gm Packet) 17 gm PO DAILYP PRN PRN Reason: Constipation Potassium Chloride (Potassium Chloride 20 Meq Tablet) 40 meq PO UD PRN PRN Reason: Potssium is 3-3.5 Potassium Chloride (Potassium Chloride 20 Meq Tablet) 40 meq PO UD PRN PRN Reason: Potassium < 3 Fluticasone/Salmeterol (Fluticasone/Salmeterol 50/100 Inhaler #14) 1 puff INH DAILY [facility] Last Admin: 09/11/21 08:40 Dose: Not Given Documented by: Senna (Sennosides 1 Tablet) 2 tab PO DAILYP PRN PRN Reason: Constipation Sodium Chloride (0.9 % Sodium Chloride 10 Ml Syringe) 10 ml IV Q8 [facility] Last Admin: 09/12/21 05:31 Dose: 10 ml Documented by: A/P Narrative A/P Narrative: A: *Severe sepsis: 2/2 pyelonephritis, Improved *Hypotension: 2/2 above and resolved in the ED with IVF *Left pyelonephritis (GNB): Has a left ureteral stent will be removed by Dr. Aparicio *RAMSES on CKD III: Follows Dr. Angeles *Met acidosis: 2/2 above *Anemia, chronic: *Thrombocytopenia, chronic: *?cirrhosis: CT imaging read as cirrhosis with ascites. no portal vein thrombosis on u/s *Coagulopathy: 2/2 above, *COPD(no home O2): *Depression/anxiety: *Crohn's: Follows with Dr. Jacobo P: -Zosyn pending UC -IVF per nephrology -Dr. Tavarez following -cont home BB/psych/IH''s -pt/ot -f/u with Donnell regarding cirrhosis findings on CT -ppx: SCD, heparin (hold if plts<50k) DNR Time Spent With Patient Time: Total time spent is greater than 50% in coordination of care (as documented) at patient's floor/unit and/or counseling patient:
[2021-09-12] MEDS: FLUTICASONE/SALMETEROL 50/100 INHALER #14 INH SCH (08:00)
[2021-09-12 08:36] LABS: Basophils # (Auto) 0.04 K/mcL (0.00-0.30); Basophils % (Auto) 0.9 % (0.0-2.0); Eosinophils # (Auto) 0.15 K/mcL (0.00-0.70); Eosinophils % (Auto) 3.3 % (0.0-7.0); Hematocrit 24.1 % (34.1-44.9); Hemoglobin 7.8 g/dL (11.2-15.7); Lymphocytes # (Auto) 1.35 K/mcL (1.50-4.80); Lymphocytes % (Auto) 29.9 % (15.5-49.0); Mean Cell Volume 107.1 fL (80.0-100.0); Mean Corpuscular HGB Conc 32.4 g/dL (31.0-36.0); Mean Platelet Volume 10.8 fL (7.4-10.4); Monocytes # (Auto) 0.46 K/mcL (0.10-0.90); Monocytes % (Auto) 10.2 % (1.0-12.0); Neutrophils % (Auto) 55.7 % (38.0-78.0); Platelet Count 56 K/mcL (140-440); RBC 2.25 M/mcL (3.59-5.38); Red Cell Distribution Width 17.2 % (11.5-14.5); WBC 4.5 K/mcL (4.5-11.0)
[2021-09-12 08:56] LABS: ALT/SGPT 14 U/L (<40); AST/SGOT 27 U/L (<32); Albumin 2.8 gm/dL (3.2-5.2); Alkaline Phosphatase 48 U/L (39-117); Bilirubin,Direct 0.4 mg/dL (<0.3); Blood Urea Nitrogen 33 mg/dL (8-23); Calcium 7.6 mg/dL (8.6-10.4); Carbon Dioxide 18 mmol/L (22-30); Chloride 107 mmol/L (96-108); Globulin 2.8 gm/dL (2.2-3.7); Glomerular Filtration Rate 7; Glucose 91 mg/dL (70-105); Lactate Dehydrogenase 178 U/L (135-225); Phosphorous 4.4 mg/dL (2.5-4.5); Triglycerides 50 mg/dL (<150); Uric Acid 12.5 mg/dL (2.5-8.0)
[2021-09-12] MEDS: FOLIC ACID 1 MG TABLET PO SCH (09:02)
[2021-09-12] MEDS: ASPIRIN 81 MG TAB.CHEW PO SCH (09:02)
[2021-09-12] MEDS: CALCIUM CARBONATE 500 MG TAB.CHEW CHEWED SCH (09:02)
--- NOTE | 2021-09-12 09:12 | Nephrology Progress Note ---
SUBJECTIVE Subjective Patient information: Note initiated : 09/12/21 at 9:09 am Patient: Rani Toro 81 y/o F admitted on 09/11/21 for Dizzy. Chief Complaint: Weakness Pertinent ROS: Weakness Edema No shortness of breath Pitts catheter with clear yellow urine Constitutional Vitals: Vital Signs Temp Pulse Resp BP Pulse Ox 98.4 F 73 12 110/42 100 09/12/21 08:00 09/12/21 08:10 09/12/21 08:10 09/12/21 08:00 09/12/21 08:10 Period Temp Pulse Resp BP Sys/Sotelo Pulse Ox Last 24 Hr 97.3 F-98.4 F 65-78 12-20 91-110/41-50 97-100 Intake and Output 09/11/21 09/12/21 09/12/21 21:59 05:59 13:59 Intake Total 170 1050 50 Output Total 175 100 Balance -5 950 50 Weight 155 lb 9 oz Intake & Output: Intake & Output 09/11/21 09/12/21 09/12/21 21:59 05:59 13:59 Intake Total 170 1050 50 Output Total 175 100 Balance -5 950 50 Weight 155 lb 9 oz Intake: IV 50 1050 50 Zosyn 2.25 gm In Dextrose 5% in 50 50 50 Water 50 ml @ 100 mls/hr IV Q8H [facility] Rx#:[id number] Sodium Bicarbonate Vial 150 Meq 1000 In Dextrose 5% in Water 850 ml @ 60 mls/hr IV Q20H [facility] Rx#: [id number] Oral 120 Output: Urine Catheter Amount 175 100 Other: Meal Dinner Percent of Meal Consumed 100% Feeding Ability Independent Urine Appearance Cloudy Urine Color Red Brown Red Brown Stool Size Moderate Stool Consistency Liquid # Bowel Movements 1 General appearance: cooperative and no acute distress Head Head exam: Present normal inspection Eye Eye exam: Present normal appearance ENT ENT exam: Present mucous membranes moist Respiratory Respiratory exam: Absent respiratory distress Cardiovascular Cardiovascular exam: Present normal rate and rhythm GI/Abdominal GI/Abdominal exam: Present soft; Absent tenderness Extremities Exam Extremities exam: Present pedal edema Neurological Exam Neurological exam: Present alert and oriented X3 Psychiatric Psychiatric exam: Present normal affect and normal mood Skin Skin exam: Present warm; Absent rash A/P Assessment and plan (1) Acute renal failure with acute tubular necrosis superimposed on stage 3a chronic kidney disease: Assessment and plan: Rani Toro is an 81-year-old female with a history of Crohn's disease, atrial fibrillation, hypertension, chronic obstructive pulmonary disease, chronic kidney disease stage 3-4, chronic thrombocytopenia and anemia, a long history of kidney stones, a left ureteral stent placed in October 2020 presented to [facility] ED for weakness. In ED, she was hypotensive, but responded to IV fluids. Her work-up was significant for acute kidney injury on chronic kidney disease. CT Abdomen and Pelvis without contrast on 09/10/21 reported abnormal ascending colon with pneumatosis and dilatation. There is infiltration of pericolonic fat. Etiology is not certain. Malignancy is possible. Ischemic colitis is possible although distribution is atypical. Cirrhosis. Moderate ascites. Bilateral renal calculi. There is a left ureteral stent present. There is a stone adjacent to the distal portion of the stent. Gas within the left renal collecting system. There is no intravesical gas. Emphysematous pyelitis is possible. She was diagnosed with sepsis, admitted and started on Vancomycin and Zosyn. Baseline serum creatinine: 0.9-1.4 (eGFR 35-60) in 2020, 2.1 (eGFR 21) on 08/15/21. Nephrology consultation was requested for acute kidney injury. Acute kidney injury, likely acute tubular necrosis and/orobstructive nephropathyassociated with emphysematous pyelonephritis, nonfunctional right kidney on chronic kidney disease stage 3-4 with initial metabolic acidosis, present on arrival. There is no recent history of IV contrast administration or NSAID use. Intravascular volume depletion treated with adequate IV fluid resuscitation. Previous workup: NM Renal Scan on 08/31/21: Right kidney significant delayed excretion of radiotracer or obstruction. Workup: Urinalysis on 09/10/21: Green, Cloudy, pH 6.0, SG 1.020, protein >300, blood large, leukocyte esterase large, urine WBC >182, urine culture pending. CT Abdomen and Pelvis without contrast on 09/10/21: Abnormal ascending colon with pneumatosis and dilatation. There is infiltration of pericolonic fat. Etiology is not certain. Malignancy is possible. Ischemic colitis is possible although distribution is atypical. Cirrhosis. Moderate ascites. Bilateral renal calculi. There is a left ureteral stent present. There is a stone adjacent to the distal portion of the stent. Gas within the left renal collecting system. There is no intravesical gas. Emphysematous pyelitis is possible. Treatment: Sodium Bicarbonate 150 mEq in 1L D5W at 60 ml/hour for hyperchloremic metabolic acidosis. Progress: Serum creatinine increased from 4.9 to 5.3 in the past 12 hours. Baseline serum creatinine: 0.9-1.4 (eGFR 35-60) in 2020, 2.1 (eGFR 21) on 08/15/21. Urine output: 275+ ml reported in the past 12 hours. Hyperchloremic metabolic acidosis, improved. Hypokalemia associated with correction of metabolic acidosis. Fluid overload. I/O: + 5L Weight: +5lb No uremic symptoms. Recommendations/Plan: Renal Doppler US for both renal arteries and veins requested. Continue Sodium Bicarbonate 150 mEq in 1L D5W at 60 ml/hour for hyperchloremic metabolic acidosis. Potassium replacement per protocol. Acute hemodialysis need anticipated based on oliguria and rising serum creatinine unless the trend changes which requires transfer to a higher level of care. Avoid NSAIDs, nephrotoxic medications and IV contrast. Monitor BMP and urine output. Status: Acute (2) Metabolic acidosis: Status: Acute Time Spent With Patient Time: Total time spent is greater than 50% in coordination of care (as documented) at patient's floor/unit and/or counseling patient:
[2021-09-12] MEDS: POTASSIUM CHLORIDE 20 MEQ TABLET PO PRN (09:50)
--- NOTE | 2021-09-12 11:05 | Ultrasound Report ---
INDICATION: Acute kidney injury for both renal arteries/veins TECHNIQUE: Routine renal ultrasound. Duplex examination of the renal arteries and veins COMPARISON: Previous noncontrast enhanced CT scan dated 09/10/2021 FINDINGS: Right kidney: Right kidney measures 11.7 x 5.9 cm. There are nonobstructing right renal calculi. At least 3 stones are identified. These measure 7 mm, 9 mm, 8 mm maximally. There is no right renal hydronephrosis. No solid or cystic mass. Left kidney: Left kidney measures 13.4 x 5.8 x 5.0 cm. There is mild left hydronephrosis. There is a large lower pole calcification which measures 2.1 x 1.5 x 1.0 cm. There is a nonobstructing stone which measures 10 mm maximally. There is no solid mass. There is an upper pole left renal cyst which measures 5.9 cm maximally. Right renal artery: No evidence for right renal artery stenosis. No significant velocity elevation. Renal artery to aortic ratio is less than 1. Right renal vein is patent. Right resistive indices measure between 0.8 and 0.9. These values are elevated, probably secondary to medical renal disease Left renal artery: There is atherosclerotic luminal irregularity. Maximum flow velocity in the proximal left renal artery measures 254 cm/s with a renal artery to aortic ratio of 1.5. Absolute flow velocity is consistent with greater than 50% diameter stenosis although renal artery to aortic ratio measures 1.5 does not correlate with hemodynamically significant stenosis. Left renal vein is patent Resistive indices measure 0.8, 0.9, 0.7. These values are elevated and consistent with medical renal disease IMPRESSION: 1. Nonobstructing renal calculi bilaterally 2. Mild left hydronephrosis 3. Elevated maximum systolic flow velocity in the proximal left renal artery. Left renal artery stenosis is probably about 50% diameter 4. Elevated resistive indices bilaterally Interpreted and Authenticated by: Del Ng 09/12/21
[2021-09-12] MEDS ORDERED: IOVERSOL 20 ML VIAL IV ONE (12:02)
[2021-09-12] MEDS ORDERED: LIDOCAINE 2% URO-JET 10 ML JEL.PF.APP UR ONE (12:02)
[2021-09-12] MEDS ORDERED: ACETAMINOPHEN 1,000 MG/100 ML BAG IV ONE (12:26)
[2021-09-12] MEDS ORDERED: NALOXONE HCL 0.4 MG/ML VIAL IV PRN (12:26)
[2021-09-12] MEDS ORDERED: fentaNYL 100 MCG/2 ML VIAL IV PRN (12:26)
[2021-09-12] MEDS ORDERED: METOPROLOL TARTRATE 5 MG/5 ML VIAL IV PRN (12:26)
[2021-09-12] MEDS ORDERED: LABETALOL 5 MG/ML ML IV PRN (12:26)
[2021-09-12] MEDS ORDERED: METHOCARBAMOL 1,000 MG/10 ML VIAL IV PRN (12:26)
[2021-09-12] MEDS ORDERED: IPRATROPIUM/ALBUTEROL 3 ML AMPUL.NEB NEB PRN (12:26)
--- NOTE | 2021-09-12 12:46 | Operative Note ---
Brief Operative Note Date of procedure: 09/12/21 Pre-op diagnosis: Retained left renal stent and renal failure. Left renal sto frandy. Post-op diagnosis: same Procedure: Cystoscopy, difficult removal of retained, encrusted, left ureteral stent. Left retrograde pyelogram, left ureteroscopy, left holmium laser lithotripsy, left ureteral stone basketing, and left renal stent placement. Grafts/Implants: Yes (8 Iranian by 24 cm left ureteral stent with no string) Anesthesia: GLMA Findings: Completely encrusted left ureteral stent with no string. Numerous left renal and ureteral stones. For stage. I will need to go back to clear the remaining stone. There was too much inflammation and blood clot to visualize remaining stone burden in the proximal ureter and kidney. Surgeon: Aris Aparicio Estimated blood loss (cc): 5 Specimens Removed/Pathology: other (Stone for analysis) Condition: stable Disposition: PACU Operative Note Operative Note: After obtaining informed consent from the patient, she was brought to the operating room was placed supine on the operating table. General anesthesia was provided. She was repositioned in a dorsolithotomy position was prepped and draped in usual sterile fashion. Attention was directed to the urethral meatus were 21 Iranian cystoscope was passed per urethra to the bladder. Bladder was inspected and was seen to be free of tumors and stones. The urine was dark and cloudy. A completely encrusted stent was seen to be emanating from the left orifice. Using a flexible grasper the tip of the stent was grasped and brought through the urethral meatus. I crushed some of the stone off of the stent using the flexible grasper. I passed a 0.38 Iranian extra-stiff wire through the lumen of the stent as far as I could trying to flex the stent to break up any stone on it. I was able to remove the stent for approximately 2 inches. It would not move any further. I therefore replaced my cystoscope alongside the stent and i nto the bladder. I passed a 0.38 Iranian sensor wire alongside the stent and into the left upper pole. With this wire in place I carefully manipulated the stent and moved it a few more inches distal. I was able to manipulate the stent into the distal third of the left ureter. At this point it would go no further. I passed a dual-lumen catheter over the sensor wire and performed a retrograde pyelogram indicating that there was no injury to the ureter however there was ureterectasis and hydronephrosis. There were numerous filling defects throughout the length of the ureter likely stone fragment that had broken off from the stent. At this point I removed the dual-lumen catheter. I passed a 6 Iranian semirigid short ureteroscope per urethra into the bladder and alongside the wire and stent until identified several large stones in the distal ureter. Using a 200 m laser fiber to power 0.8 J and a frequency of 12 Hz I fragmented the stone into smaller pieces. I was then able to remove the retained stent. I then used a 2.4 Iranian nitinol tipless basket to remove the stone fragments from the ureter. I inspected the ureter as far proximal as I could with the short semirigid ureteroscope and there were numerous stone fragments which were removed at this point I decided to look into the left kidney. Dual-lumen catheter was passed over the sensor wire. A second 0.38 Iranian extra-stiff wire was passed through the second port of the lumen catheter and under fluoroscopic guidance into the left upper pole the Douma catheter was removed. A 12-14 Iranian, 35 cm, ureteral access sheath was passed over the extra-stiff wire and under fluoroscopic guidance to the ureteropelvic junction. The obturator and the extra-stiff wire were removed. The flexible, disposable ureteroscope was then passed. I inspected the upper middle lower pole calyces of the kidney and there were numerous stone fragments and blood clot. I used my laser fiber to break the larger of the stones into small pieces. But there was a lot of blood clot in which I could not see. I then inspected the uteropelvic junction which was again filled with blood clot and stone fragments. The proximal ureter was also filled with stone fragments and blood clot. At this point visualization was still poor that I performed another retrograde pyelogram through the ureteroscope. I then removed the ureteroscope and ureteral access sheath inspecting the ureter. The ureter appeared intact but extremely inflamed. The remaining wire was then backloaded through the 21 Iranian cystoscope which was passed into the bladder. An 8 Iranian by 24 cm ureteral stent with no string was passed over the wire under fluoroscopic guidance into the left renal pelvis. The wire was removed leaving a good curl in the left renal pelvis and a good curl within the bladder. The bladder was then irrigated and stone frag were collected and passed off the table specimen for stone analysis. The bladder was again refilled and the cystoscope was removed. Lidocaine jelly was placed in the urethra in the bladder. An 18 Iranian Pitts catheter was then easily passed per urethra into the bladder. The balloon was inflated with 10 mL of sterile water. It was then placed to gravity drainage. The patient was then returned to the spine position. She was awakened return to the recovery room in stable condition
--- NOTE | 2021-09-12 12:46 | Discharge Plan ---
Discharge Plan Patient/Caregiver Discharge Instructions Activity: increase activity as tolerated and resume usual activities as tolerated Diet: Regular Diet Prescriptions: No Action potassium citrate 10 mEq (1,080 mg) tablet extended release 10 meq PO TID Qty: 90 11RF aspirin 81 mg tablet,chewable 81 mg PO DAILY 0RF folic acid 800 mcg tablet 800 mcg PO QDAY 0RF buspirone 5 mg tablet 2.5 mg PO QDAY Qty: 45 1RF cyanocobalamin (vitamin B-12) 1,000 mcg/mL solution 1,000 mcg SUB-Q QMONTH Qty: 3 1RF escitalopram oxalate [Lexapro] 10 mg tablet 10 mg PO QDAY Qty: 90 1RF fluticasone propion-salmeterol [Wixela Inhub] 100-50 mcg/dose blister with device 1 inh INHALATION QDAY Qty: 60 1RF metoprolol succinate 25 mg tablet extended release 24 hr 25 mg PO HS Qty: 90 1RF pravastatin 40 mg tablet 40 mg PO HS Qty: 90 1RF Centrum Silver Tablet 1 tab PO QDAY 0RF omega 1-zmf-mtn-fish oil [Fish Oil] 1,000 mg (120 mg-180 mg) Capsule 1 cap PO QDAY 0RF cetirizine [Zyrtec] 10 mg Tablet 10 mg PO QDAY PRN (Reason: Allergies) 0RF cholecalciferol (vitamin D3) [Vitamin D3] 25 mcg (1,000 unit) Capsule 25 mcg PO QDAY 0RF azathioprine [Imuran] 50 mg Tablet 50 mg PO QDAY 0RF calcium citrate 250 mg calcium Tablet 250 mg PO BID 0RF magnesium oxide 400 mg magnesium Tablet 400 mg PO QDAY 0RF Myrbetriq 50 mg Tablet Extended Release 24 Hr 50 mg PO QDAY 0RF Follow Up Plan Follow up with: Marques Tinoco MD [Primary Care Provider] -
[2021-09-12] MEDS ORDERED: SODIUM BICARBONATE VIAL 150 MEQ in DEXTROSE 5% IN WATER 850 ML IV SCH (14:00)
[2021-09-12] MEDS: CEFEPIME 1 GM VIAL IV SCH (17:35)
--- NOTE | 2021-09-12 19:02 | XRay Report ---
INDICATION: laser lithotripsy TECHNIQUE: Intraoperative fluoroscopy and spot films. 1.7 minutes fluoroscopy and 25.8 mGy exposure used IMPRESSION: Intraoperative fluoroscopy and spot films. Laser lithotripsy performed Interpreted and Authenticated by: Del Ng 09/12/21
[2021-09-12] MEDS: ATORVASTATIN 10 MG TABLET PO SCH (20:18)
[2021-09-12] MEDS: MELATONIN 3 MG TABLET PO SCH (20:18)
[2021-09-12] MEDS: METOPROLOL SUCCINATE 25 MG TAB.XL.24H PO SCH (20:18)
[2021-09-12] MEDS ORDERED: HEPARIN 5,000 UNIT/ML VIAL SQ SCH (21:00)
[2021-09-13] MEDS: 0.9 % SODIUM CHLORIDE 10 ML SYRINGE IV SCH ×3 (05:52→21:03)
[2021-09-13 07:23] LABS: Basophils # (Auto) 0 K/mcL (0.00-0.30); Basophils % (Auto) 0 % (0.0-2.0); Eosinophils # (Auto) 0 K/mcL (0.00-0.70); Eosinophils % (Auto) 0 % (0.0-7.0); Hematocrit 20.8 % (34.1-44.9); Hemoglobin 6.8 g/dL (11.2-15.7); Lymphocytes # (Auto) 0.74 K/mcL (1.50-4.80); Lymphocytes % (Auto) 12.3 % (15.5-49.0); Mean Cell Volume 104.5 fL (80.0-100.0); Mean Corpuscular HGB Conc 32.7 g/dL (31.0-36.0); Mean Platelet Volume 10.1 fL (7.4-10.4); Monocytes # (Auto) 0.44 K/mcL (0.10-0.90); Monocytes % (Auto) 7.3 % (1.0-12.0); Neutrophils % (Auto) 80.4 % (38.0-78.0); Platelet Count 47 K/mcL (140-440); RBC 1.99 M/mcL (3.59-5.38); Red Cell Distribution Width 16.8 % (11.5-14.5)
--- NOTE | 2021-09-13 07:25 | Urology Progress Note ---
SUBJECTIVE Subjective Patient information: Note initiated : 09/13/21 at 7:22 am Service Date, if different from initiated Date: [] Patient: Rani Toro a 81 y/o F admitted on 09/11/21 for Dizzy. Chief Complaint: [Retained left ureteral stent and bilateral stones Principal diagnosis: Retained left ureteral stent and renal failure Interval history: Rani is postoperative day #1 status post surgical removal of retained left ureteral stent. She is currently doing well and has no current complaints. Morning labs remain pending. Constitutional Vitals: Vital Signs Temp Pulse Resp BP Pulse Ox 97.6 F 67 16 117/52 99 09/13/21 04:21 09/13/21 06:39 09/13/21 06:39 09/13/21 06:30 09/13/21 06:39 Period Temp Pulse Resp BP Sys/Sotelo Pulse Ox Last 24 Hr 97 F-98.4 F 65-101 11-25 77-122/36-85 94-100 Intake and Output 09/12/21 09/13/21 09/13/21 21:59 05:59 13:59 Intake Total 384 594 0042 Output Total 175 75 100 Balance 375 425 900 Weight 69.57 kg Intake & Output: Intake & Output 09/12/21 09/13/21 09/13/21 21:59 05:59 13:59 Intake Total 309 972 7210 Output Total 175 75 100 Balance 375 425 900 Weight 69.57 kg Intake: IV 50 1000 Zosyn 2.25 gm In Dextrose 5% in 50 Water 50 ml @ 100 mls/hr IV Q8H [facility] Rx#:[id number] Sodium Bicarbonate Vial 150 Meq 1000 In Dextrose 5% in Water 850 ml @ 60 mls/hr IV Q20H [facility] Rx#: [id number] Oral 500 500 Output: Urine Catheter Amount 175 75 Void Amount 100 Other: Urine Appearance Clear Hematuria Hematuria Uretheral (Pitts) Hematuria Urine Color Bright Red Dark Red Dark Red Uretheral ([place]s) Dark Red General appearance: average body habitus and cooperative Head Head exam: Present atraumatic, normal inspection and normocephalic Respiratory Respiratory exam: Present normal respiratory exam Cardiovascular Cardiovascular exam: Present normal rate and rhythm Expanded Exam Urine Color: [place] A/P Narrative A/P Narrative: Tyson is doing well postoperative day #1 status post removal of the retained left ureteral stent. She has remaining left and right renal stones which will need to be treated separately in the very near future. I would like to see if morning labs showed improvement in her creatinine now that the left kidney is unobstructed. We will continue to follow. Time Spent With Patient Time: Total time spent is greater than 50% in coordination of care (as documented) at patient's floor/unit and/or counseling patient: Total time spent with greater than 50% in coordination of care (as documented) at patient's floor/unit and/or counseling patient:: less than 15 minutes
[2021-09-13 07:44] LABS: Blood Urea Nitrogen 32 mg/dL (8-23); Calcium 6.9 mg/dL (8.6-10.4); Carbon Dioxide 21 mmol/L (22-30); Chloride 100 mmol/L (96-108); Glomerular Filtration Rate 7; Glucose 117 mg/dL (70-105)
[2021-09-13] MEDS ORDERED: 0.9 % SODIUM CHLORIDE 250 ML IV SCH (07:45)
--- NOTE | 2021-09-13 07:55 | Internal Med Progress Note ---
SUBJECTIVE Subjective Patient information: Note initiated : 09/13/21 at 7:47 am Service Date, if different from initiated Date: [] Patient: Rani Toro a 81 y/o F admitted on 09/11/21 for Dizzy. Chief Complaint: [] Principal diagnosis: Retained left ureteral stent and renal failure Interval history: History of present illness: Ms. Toro is a 81 year old F Presents to the ED with increasing weakness and lightheadedness. Patient had hard time walking to the bathroom without having to sit down from feeling lightheadedness. Denies fever chills nausea vomiting. Denies chest pain or stomach pain. Abnormal bowel function from Crohn's. Has a history of chronic kidney disease and follows with Dr. Angeles. Chronic thrombocytopenia and anemia. Old notes report a single episode of atrial fibrillation but none since; and confirmed by pt. She has a left kidney stents post removed by Dr. Aparicio on Saturday. On evaluation the ED she was hypotensive initially which responded to IV fluid. She is work-up but found to have acute acute kidney injury on chronic kidney disease. Wound to have pyelonephritis on the left. Case discussed with Dr. Karthik Aparicio. CT abdominal also read as pneumatosis in the colon and case discussed with Dr. Tate who will see the patient in the morning but did not have any recomm endations at this point. 09/11 Doing better. Not getting lightheaded like she was before. Poor sleep. 09/12 Patient doing well. Scheduled to get stent out today. IV fluids per nephrology. Chemistry pending. 09/13 Patient had ureteral stent removed and replaced yesterday and stones removed. Hemoglobin below 7 today and will transfuse. Patient feels well overall. Renal function has not improved. Review of Systems: denies headache/fever/chills/nausea/vomiting/chest or abdominal pain/cough/dys pnea/diarrhea. Otherwise see above. Constitutional Vitals: Vital Signs Temp Pulse Resp BP Pulse Ox 97.6 F 67 16 117/52 99 09/13/21 04:21 09/13/21 06:39 09/13/21 06:39 09/13/21 06:30 09/13/21 06:39 Period Temp Pulse Resp BP Sys/Sotelo Pulse Ox Last 24 Hr 97 F-98.4 F 65-101 11-25 77-122/36-85 94-100 Intake and Output 09/12/21 09/13/21 09/13/21 21:59 05:59 13:59 Intake Total 098 809 3128 Output Total 175 75 100 Balance 375 425 900 Weight 69.57 kg Intake & Output: Intake & Output 09/12/21 09/13/21 09/13/21 21:59 05:59 13:59 Intake Total 098 768 2135 Output Total 175 75 100 Balance 375 425 900 Weight 69.57 kg Intake: IV 50 1000 Zosyn 2.25 gm In Dextrose 5% in 50 Water 50 ml @ 100 mls/hr IV Q8H [facility] Rx#:[id number] Sodium Bicarbonate Vial 150 Meq 1000 In Dextrose 5% in Water 850 ml @ 60 mls/hr IV Q20H [facility] Rx#: [id number] Oral 500 500 Output: Urine Catheter Amount 175 75 Void Amount 100 Other: Urine Appearance Clear Hematuria Hematuria Uretheral ([place]s) Hematuria Urine Color Bright Red Dark Red [place] Uretheral ([place]s) Dark Red Exam: General: Alert, Awake, No acute Distress Eyes/N/T: EOMI, Head/Neck: neck supple, CV: RRR, No murmurs, Pulm: Clear b/l, no wheezing/rhonchi/rales Abd: soft, nontender, BS x4 Ext: no clubbing/cyanosis, trace b/l LE edema Neuro: Alert, no focal deficits, moves all extremities, Skin: warm/dry OBJ DATA Labs CBC & Chem 7: 09/13/21 05:53 09/13/21 05:53 Labs: Abnormal Lab Results 09/13/21 09/13/21 09/12/21 05:53 05:53 07:26 RBC 1.99 L Hgb 6.8 L* Hct 20.8 L* MCV 104.5 H MCH 34.2 H RDW 16.8 H Plt Count 47 L* MPV Neut % (Auto) 80.4 H Lymph % (Auto) 12.3 L Lymph # (Auto) 0.74 L Platelet Estimate RBC Morphology Hypochromasia Anisocytosis Macrocytosis PT INR VBG Lactic Acid Potassium 3.2 L Chloride Carbon Dioxide 21 L 18 L BUN 32 H 33 H Creatinine 5.5 H* 5.3 H* Glucose 117 H Uric Acid 12.5 H Calcium 6.9 L 7.6 L Total Bilirubin Direct Bilirubin 0.4 H AST Total Protein 5.6 L Albumin 2.8 L Urine Appearance Urine Protein Urine Ketones Urine Occult Blood Ur Leukocyte Esterase Urine RBC Urine WBC Urine Bacteria 09/12/21 09/12/21 09/11/21 07:26 05:49 06:03 RBC 2.25 L Hgb 7.8 L Hct 24.1 L MCV 107.1 H MCH 34.7 H RDW 17.2 H Plt Count 56 L MPV 10.8 H Neut % (Auto) Lymph % (Auto) Lymph # (Auto) 1.35 L Platelet Estimate RBC Morphology Hypochromasia Anisocytosis Macrocytosis PT 20.2 H INR 1.6 H VBG Lactic Acid Potassium Chloride 111 H Carbon Dioxide 14 L BUN 33 H Creatinine 4.9 H Glucose Uric Acid 12.1 H Calcium 7.7 L Total Bilirubin 1.1 H Direct Bilirubin 0.5 H AST Total Protein 5.5 L Albumin 3.1 L Urine Appearance Urine Protein Urine Ketones Urine Occult Blood Ur Leukocyte Esterase Urine RBC Urine WBC Urine Bacteria 09/11/21 09/10/21 09/10/21 06:03 21:02 19:22 RBC 2.20 L Hgb 7.6 L Hct 24.5 L MCV 111.4 H MCH 34.5 H RDW 17.1 H Plt Count 64 L MPV 10.8 H Neut % (Auto) Lymph % (Auto) Lymph # (Auto) Platelet Estimate Decreased A RBC Morphology Abnormal A Hypochromasia 1+ A Anisocytosis 1+ A Macrocytosis 2+ A PT INR VBG Lactic Acid < 0.2 L Potassium Chloride Carbon Dioxide BUN Creatinine Glucose Uric Acid Calcium Total Bilirubin Direct Bilirubin AST Total Protein Albumin Urine Appearance Cloudy A Urine Protein >=300 mg/dl A Urine Ketones Trace A Urine Occult Blood Large A Ur Leukocyte Esterase Large A Urine RBC > 182 H Urine WBC > 182 H Urine Bacteria Many A 09/10/21 09/10/21 09/10/21 14:40 14:40 14:40 RBC Hgb Hct MCV MCH RDW Plt Count MPV Neut % (Auto) Lymph % (Auto) Lymph # (Auto) Platelet Estimate Decreased A RBC Morphology Abnormal A Hypochromasia Anisocytosis 1+ A Macrocytosis 1+ A PT 22.9 H INR 1.9 H VBG Lactic Acid Potassium Chloride Carbon Dioxide BUN Creatinine Glucose Uric Acid Calcium Total Bilirubin Direct Bilirubin 0.4 H AST 33 H Total Protein Albumin 3.1 L Urine Appearance Urine Protein Urine Ketones Urine Occult Blood Ur Leukocyte Esterase Urine RBC Urine WBC Urine Bacteria 09/10/21 09/10/21 14:40 14:40 RBC 2.51 L Hgb 8.9 L Hct 26.7 L MCV 106.4 H MCH 35.5 H RDW 16.8 H Plt Count 89 L MPV 10.9 H Neut % (Auto) Lymph % (Auto) Lymph # (Auto) Platelet Estimate RBC Morphology Hypochromasia Anisocytosis Macrocytosis PT INR VBG Lactic Acid Potassium Chloride Carbon Dioxide 16 L BUN 35 H Creatinine 5.2 H* Glucose Uric Acid Calcium 8.3 L Total Bilirubin Direct Bilirubin AST Total Protein Albumin Urine Appearance Urine Protein Urine Ketones Urine Occult Blood Ur Leukocyte Esterase Urine RBC Urine WBC Urine Bacteria Meds: Medications Acetaminophen (Acetaminophen 325 Mg Tablet) 650 mg PO Q6HP PRN; Protocol PRN Reason: Per Pain Protocol/Fever > 101 Last Admin: 09/12/21 20:17 Dose: 650 mg Documented by: Albuterol/Ipratropium (Ipratropium/Albuterol 3 Ml Ampul.Neb) 3 ml NEB Q4HP PRN PRN Reason: Shortness Of Breath Aspirin (Aspirin 81 Mg Tab.Chew) 81 mg PO DAILY [facility] Last Admin: 09/12/21 09:02 Dose: Not Given Documented by: Atorvastatin Calcium (Atorvastatin 10 Mg Tablet) 10 mg PO [facility] Last Admin: 09/12/21 20:18 Dose: 10 mg Documented by: Buspirone HCl (Buspirone 5 Mg Tablet) 2.5 mg PO DAILY [facility] Last Admin: 09/12/21 07:21 Dose: 2.5 mg Documented by: Calcium Carbonate/Glycine (Calcium Carbonate 500 Mg Tab.Chew) 500 mg CHEWED DAILY [facility] Last Admin: 09/12/21 09:02 Dose: Not Given Documented by: Cefepime HCl (Cefepime 1 Gm Vial) 0.5 gm IV Q24H [facility] Last Admin: 09/12/21 17:35 Dose: 0.5 gm Documented by: Escitalopram Oxalate (Escitalopram 10 Mg Tablet) 10 mg PO QDAY [facility] Last Admin: 09/12/21 07:22 Dose: 10 mg Documented by: Folic Acid (Folic Acid 1 Mg Tablet) 1 mg PO DAILY [facility] Last Admin: 09/12/21 09:02 Dose: Not Given Documented by: Heparin Sodium (Porcine) (Heparin 5,000 Unit/Ml Vial) 5,000 unit SQ Q12 [facility] Last Admin: 09/12/21 20:18 Dose: Not Given Documented by: Potassium Chloride 40 meq/ (Dextrose) 520 mls @ 130 mls/hr IV UD PRN PRN Reason: Potassium < 3 Magnesium Sulfate (Magnesium Sulfate) 2 gm in 50 mls @ 50 mls/hr IV UD PRN PRN Reason: Magnesium </= 1.6 Sodium Bicarbonate 150 meq/ (Dextrose) 1,000 mls @ 60 mls/hr IV Q20H [facility] Last Admin: 09/12/21 14:34 Dose: 60 mls/hr Documented by: Sodium Chloride (Sodium Chloride 0.9%) 250 mls @ 20 mls/hr IV .[id number] [facility] Stop: 09/13/21 20:14 Loperamide HCl (Loperamide 2 Mg Capsule) 2 mg PO PRN PRN PRN Reason: Diarrhea Melatonin (Melatonin 3 Mg Tablet) 3 mg PO QHS [facility] Last Admin: 09/12/21 20:18 Dose: 3 mg Documented by: Metoprolol Succinate (Metoprolol Succinate 25 Mg Tab.Xl.24h) 25 mg PO HS [facility] Last Admin: 09/12/21 20:18 Dose: Not Given Documented by: Metoprolol Tartrate (Metoprolol Tartrate 5 Mg/5 Ml Vial) 5 mg IV Q2HP PRN PRN Reason: Tachyarrhythmias HR>110 Ondansetron HCl (Ondansetron 4 Mg/2 Ml Vial) 4 mg IV Q4HP PRN PRN Reason: Nausea And Vomiting Polyethylene Glycol (Polyethylene Glycol 3350 17 Gm Packet) 17 gm PO DAILYP PRN PRN Reason: Constipation Potassium Chloride (Potassium Chloride 20 Meq Tablet) 40 meq PO UD PRN PRN Reason: Potssium is 3-3.5 Last Admin: 09/12/21 09:50 Dose: 40 meq Documented by: Potassium Chloride (Potassium Chloride 20 Meq Tablet) 40 meq PO UD PRN PRN Reason: Potassium < 3 Fluticasone/Salmeterol (Fluticasone/Salmeterol 50/100 Inhaler #14) 1 puff INH DAILY [facility] Last Admin: 09/12/21 08:00 Dose: 1 puff Documented by: Senna (Sennosides 1 Tablet) 2 tab PO DAILYP PRN PRN Reason: Constipation Sodium Chloride (0.9 % Sodium Chloride 10 Ml Syringe) 10 ml IV Q8 [facility] Last Admin: 09/13/21 05:52 Dose: 10 ml Documented by: A/P Narrative A/P Narrative: A: *Severe sepsis: 2/2 pyelonephritis, Improved *Hypotension: 2/2 above and resolved in the ED with IVF *Left pyelonephritis (Aerococcus/MDRO E.coli/Enterococcus): Has a left ureteral stent will be removed by Dr. Aparicio *Left obstructing ureteral stent & Nephrolithiasis: s/p stent/stone removal w/stent replacement (09/12) *Hematuria: 2/2 above *Anemia, acute blood loss on chronic: s/p procedure *RAMSES on CKD III: Follows Dr. Angeles -no improvement yet s/p stent placement *Met acidosis: 2/2 above *Thrombocytopenia, chronic: *?cirrhosis: CT imaging read as cirrhosis with ascites. no portal vein thrombosis on u/s *Coagulopathy: 2/2 above, *COPD(no home O2): *Depression/anxiety: *Crohn's: Follows with Dr. Jacobo P: -cont Cefeppime -IVF per nephrology -Dr. Lane and Alessandra following -2prbc today -hold home BB for low BP -hold ASA for hematuria -cont home psych/IH's -pt/ot -f/u with Donnell regarding cirrhosis findings on CT -ppx: SCD DNR Time Spent With Patient Time: Total time spent is greater than 50% in coordination of care (as documented) at patient's floor/unit and/or counseling patient:
[2021-09-13] MEDS ORDERED: SODIUM BICARBONATE VIAL 150 MEQ in DEXTROSE 5% IN WATER 850 ML IV SCH (08:00)
--- NOTE | 2021-09-13 08:16 | Nephrology Progress Note ---
SUBJECTIVE Subjective Patient information: Note initiated : 09/13/21 at 8:13 am Patient: Rani Toro 81 y/o F admitted on 09/11/21 for Dizzy. Chief Complaint: Weakness Principal diagnosis: Retained left ureteral stent and renal failure Pertinent ROS: Weakness Pitts catheter with dark bloody urine No shortness of breath No nausea No hiccups Constitutional Vitals: Vital Signs Temp Pulse Resp BP Pulse Ox 97.6 F 73 17 108/55 100 09/13/21 08:08 09/13/21 08:08 09/13/21 08:08 09/13/21 08:08 09/13/21 08:08 Period Temp Pulse Resp BP Sys/Sotelo Pulse Ox Last 24 Hr 97 F-98 F 65-101 11-25 77-122/36-85 94-100 Intake and Output 09/12/21 09/13/21 09/13/21 21:59 05:59 13:59 Intake Total 188 703 3154 Output Total 175 75 100 Balance 375 425 900 Weight 153 lb 6 oz Intake & Output: Intake & Output 09/12/21 09/13/21 09/13/21 21:59 05:59 13:59 Intake Total 305 737 4914 Output Total 175 75 100 Balance 375 425 900 Weight 153 lb 6 oz Intake: IV 50 1000 Zosyn 2.25 gm In Dextrose 5% in 50 Water 50 ml @ 100 mls/hr IV Q8H [facility] Rx#:[id number] Sodium Bicarbonate Vial 150 Meq 1000 In Dextrose 5% in Water 850 ml @ 60 mls/hr IV Q20H [facility] Rx#: [id number] Oral 500 500 Output: Urine Catheter Amount 175 75 Void Amount 100 Other: Urine Appearance Clear Hematuria Hematuria Uretheral ([place]s) Hematuria Hematuria Urine Color Bright Red Dark Red [place] Uretheral ([place]s) Dark Red Dark Red General appearance: cooperative and no acute distress Head Head exam: Present normal inspection Eye Eye exam: Present normal appearance ENT ENT exam: Present mucous membranes moist Respiratory Respiratory exam: Absent respiratory distress Cardiovascular Cardiovascular exam: Present normal rate and rhythm GI/Abdominal GI/Abdominal exam: Present soft; Absent tenderness Extremities Exam Extremities exam: Absent joint swelling or pedal edema Neurological Exam Neurological exam: Present alert and oriented X3 Psychiatric Psychiatric exam: Present normal affect and normal mood Skin Skin exam: Present warm; Absent rash A/P Assessment and plan (1) Acute renal failure with acute tubular necrosis superimposed on stage 3a chronic kidney disease: Assessment and plan: Rani Toro is an 81-year-old female with a history of Crohn's disease, atrial fibrillation, hypertension, chronic obstructive pulmonary disease, chronic kidney disease stage 3-4, chronic thrombocytopenia and anemia, a long history of kidney stones, a left ureteral stent placed in October 2020 presented to [facility] ED for weakness. In ED, she was hypotensive, but responded to IV fluids. Her work-up was significant for acute kidney injury on chronic kidney disease. CT Abdomen and Pelvis without contrast on 09/10/21 reported abnormal ascending colon with pneumatosis and dilatation. There is infiltration of pericolonic fat. Etiology is not certain. Malignancy is possible. Ischemic colitis is possible although distribution is atypical. Cirrhosis. Moderate ascites. Bilateral renal calculi. There is a left ureteral stent present. There is a stone adjacent to the distal portion of the stent. Gas within the left renal collecting system. There is no intravesical gas. Emphysematous pyelitis is possible. She was diagnosed with sepsis, admitted and started on Vancomycin and Zosyn. Baseline serum creatinine: 0.9-1.4 (eGFR 35-60) in 2020, 2.1 (eGFR 21) on 08/15/21. Nephrology consultation was requested for acute kidney injury. Acute kidney injury, likely acute tubular necrosis and/orobstructive nephropathyassociated with emphysematous pyelonephritis, nonfunctional right kidney on chronic kidney disease stage 3-4 with initial metabolic acidosis, present on arrival. There is no recent history of IV contrast administration or NSAID use. Intravascular volume depletion treated with adequate IV fluid resuscitation. Acute emphysematous pyelonephritis with Aerococcus urinae,Escherichia coli and Enterococcus species (by urine culture from 09/12/21). She was started on Vancomycin and Zosyn then changed to Cefepime. Chronic thrombocytopenia, worse, likely associated with cirrhosis of liver and sepsis. Acute on chronic anemia. Previous workup: NM Renal Scan on 08/31/21: Right kidney significant delayed excretion of radiotracer or obstruction. Workup: Renal US on 09/12/21: Nonobstructing renal calculi bilaterally.Mild left hydronephrosis.Elevated maximum systolic flow velocity in the proximal left renalartery. Left renal artery stenosis is probably about 50% diameter.Elevated resistive indices bilaterally. Urinalysis on 09/10/21: Green, Cloudy, pH 6.0, SG 1.020, protein >300, blood large, leukocyte esterase large, urine WBC >182, urine culture pending. CT Abdomen and Pelvis without contrast on 09/10/21: Abnormal ascending colon with pneumatosis and dilatation. There is infiltration of pericolonic fat. Etiology is not certain. Malignancy is possible. Ischemic colitis is possible although distribution is atypical. Cirrhosis. Moderate ascites. Bilateral renal calculi. There is a left ureteral stent present. There is a stone adjacent to the distal portion of the stent. Gas within the left renal collecting system. There is no intravesical gas. Emphysematous pyelitis is possible. Treatment: Sodium Bicarbonate 150 mEq in 1L D5W at 60 ml/hour for hyperchloremic metabolic acidosis. Cystoscopy, difficult removal of retained, encrusted, left ureteral stent. Left retrograde pyelogram, left ureteroscopy, left holmium laser lithotripsy, left ureteral stone basketing, and left renal stent placement on 09/12/21. She needs further cleaning. Progress: Serum creatinine increased from 5.3 to 5.5 in the past 24 hours. Baseline serum creatinine: 0.9-1.4 (eGFR 35-60) in 2020, 2.1 (eGFR 21) on 08/15/21. Urine output: 300+ ml reported in the past 24 hours. Hyperchloremic metabolic acidosis, improved. Hypokalemia associated with correction of metabolic acidosis, resolved. Fluid overload. I/O: + 8.1 L Weight: +3 lb No uremic symptoms. Recommendations/Plan: Sodium Bicarbonate 150 mEq in 1L D5W at 60 ml/hour changed to Sodium Bicarbonate 650 mg twice daily for hyperchloremic metabolic acidosis. Acute hemodialysis need anticipated based on oliguria and rising serum creatinine unless the trend changes which requires transfer to a higher level of care. Avoid NSAIDs, nephrotoxic medications and IV contrast. Monitor BMP and urine output. Status: Acute (2) Metabolic acidosis: Status: Acute Time Spent With Patient Time: Total time spent is greater than 50% in coordination of care (as documented) at patient's floor/unit and/or counseling patient:
[2021-09-13] MEDS: FOLIC ACID 1 MG TABLET PO SCH (09:17)
[2021-09-13] MEDS: ESCITALOPRAM 10 MG TABLET PO SCH (09:17)
[2021-09-13] MEDS: CALCIUM CARBONATE 500 MG TAB.CHEW CHEWED SCH (09:17)
[2021-09-13] MEDS: FLUTICASONE/SALMETEROL 50/100 INHALER #14 INH SCH (09:18)
[2021-09-13] MEDS: CEFEPIME 1 GM VIAL IV SCH (09:21)
[2021-09-13] MEDS: busPIRone 5 MG TABLET PO SCH (09:22)
[2021-09-13] MEDS: SODIUM BICARBONATE 650 MG TABLET PO SCH ×2 (09:22→21:03)
[2021-09-13] MEDS: MELATONIN 3 MG TABLET PO SCH (21:03)
[2021-09-13] MEDS: ATORVASTATIN 10 MG TABLET PO SCH (21:03)
[2021-09-14] MEDS: 0.9 % SODIUM CHLORIDE 10 ML SYRINGE IV SCH ×4 (05:31→20:58)
--- NOTE | 2021-09-14 07:46 | Internal Med Progress Note ---
SUBJECTIVE Subjective Patient information: Note initiated : 09/14/21 at 7:44 am Service Date, if different from initiated Date: [] Patient: Rani Toro a 81 y/o F admitted on 09/11/21 for Dizzy. Chief Complaint: [] Principal diagnosis: Retained left ureteral stent and renal failure Interval history: History of present illness: Ms. Toro is a 81 year old F Presents to the ED with increasing weakness and lightheadedness. Patient had hard time walking to the bathroom without having to sit down from feeling lightheadedness. Denies fever chills nausea vomiting. Denies chest pain or stomach pain. Abnormal bowel function from Crohn's. Has a history of chronic kidney disease and follows with Dr. Angeles. Chronic thrombocytopenia and anemia. Old notes report a single episode of atrial fibrillation but none since; and confirmed by pt. She has a left kidney stents post removed by Dr. Aparicio on Saturday. On evaluation the ED she was hypotensive initially which responded to IV fluid. She is work-up but found to have acute acute kidney injury on chronic kidney disease. Wound to have pyelonephritis on the left. Case discussed with Dr. Karthik Aparicio. CT abdominal also read as pneumatosis in the colon and case discussed with Dr. Tate who will see the patient in the morning but did not have any recomm endations at this point. 09/11 Doing better. Not getting lightheaded like she was before. Poor sleep. 09/12 Patient doing well. Scheduled to get stent out today. IV fluids per nephrology. Chemistry pending. 09/13 Patient had ureteral stent removed and replaced yesterday and stones removed. Hemoglobin below 7 today and will transfuse. Patient feels well overall. Renal function has not improved. 09/14 Gross hematuria. Patient feels well. No overnight event or new complaints. Received blood transfusion yesterday. Given the active bleeding and the platelets down to 41k will transfuse plate lets. FFP given coagulopathy. Awaiting renal function panel. Review of Systems: denies headache/fever/chills/nausea/vomiting/chest or abdominal pain/cough/dyspnea/diarrhea. Otherwise see above. Constitutional Vitals: Vital Signs Temp Pulse Resp BP Pulse Ox 98.5 F 72 16 113/47 94 09/14/21 05:43 09/14/21 05:43 09/14/21 05:43 09/14/21 04:01 09/14/21 05:43 Period Temp Pulse Resp BP Sys/Sotelo Pulse Ox Last 24 Hr 97.6 F-98.6 F 65-78 13-21 78-124/40-85 94-100 Intake and Output 09/13/21 09/14/21 09/14/21 21:59 05:59 13:59 Intake Total 800 Output Total 200 100 Balance 600 -100 Weight 69.967 kg Intake & Output: Intake & Output 09/13/21 09/14/21 09/14/21 21:59 05:59 13:59 Intake Total 800 Output Total 200 100 Balance 600 -100 Weight 69.967 kg Intake: Oral 800 Output: Urine Catheter Amount 200 50 Void Amount 50 Other: Urine Appearance Hematuria Hematuria Uretheral (Pitts) Hematuria Urine Color Dark Red Dark Red Uretheral (Pitts) Dark Red Exam: General: Alert, Awake, No acute Distress Eyes/N/T: EOMI, Head/Neck: neck supple, CV: RRR, No murmurs, Pulm: Clear b/l, no wheezing/rhonchi/rales Abd: soft, nontender, BS x4 Ext: no clubbing/cyanosis, trace b/l LE edema Neuro: Alert, no focal deficits, moves all extremities, Skin: warm/dry OBJ DATA Labs CBC & Chem 7: 09/14/21 06:12 09/13/21 05:53 Labs: Abnormal Lab Results 09/13/21 09/13/21 09/12/21 05:53 05:53 07:26 RBC 1.99 L Hgb 6.8 L* Hct 20.8 L* MCV 104.5 H MCH 34.2 H RDW 16.8 H Plt Count 47 L* MPV Neut % (Auto) 80.4 H Lymph % (Auto) 12.3 L Lymph # (Auto) 0.74 L Platelet Estimate RBC Morphology Hypochromasia Anisocytosis Macrocytosis PT INR Potassium 3.2 L Carbon Dioxide 21 L 18 L BUN 32 H 33 H Creatinine 5.5 H* 5.3 H* Glucose 117 H Uric Acid 12.5 H Calcium 6.9 L 7.6 L Direct Bilirubin 0.4 H Total Protein 5.6 L Albumin 2.8 L 09/12/21 09/12/2109/11/22 07:26 05:49 06:03 RBC 2.25 L Hgb 7.8 L Hct 24.1 L MCV 107.1 H MCH 34.7 H RDW 17.2 H Plt Count 56 L MPV 10.8 H Neut % (Auto) Lymph % (Auto) Lymph # (Auto) 1.35 L Platelet Estimate Decreased A RBC Morphology Abnormal A Hypochromasia 1+ A Anisocytosis 1+ A Macrocytosis 2+ A PT 20.2 H INR 1.6 H Potassium Carbon Dioxide BUN Creatinine Glucose Uric Acid Calcium Direct Bilirubin Total Protein Albumin Meds: Medications Acetaminophen (Acetaminophen 325 Mg Tablet) 650 mg PO Q6HP PRN; Protocol PRN Reason: Per Pain Protocol/Fever > 101 Last Admin: 09/12/21 20:17 Dose: 650 mg Documented by: Albuterol/Ipratropium (Ipratropium/Albuterol 3 Ml Ampul.Neb) 3 ml NEB Q4HP PRN PRN Reason: Shortness Of Breath Atorvastatin Calcium (Atorvastatin 10 Mg Tablet) 10 mg PO HS [facility] Last Admin: 09/13/21 21:03 Dose: 10 mg Documented by: Buspirone HCl (Buspirone 5 Mg Tablet) 2.5 mg PO DAILY [facility] Last Admin: 09/13/21 09:22 Dose: 2.5 mg Documented by: Calcium Carbonate/Glycine (Calcium Carbonate 500 Mg Tab.Chew) 500 mg CHEWED DAILY [facility] Last Admin: 09/13/21 09:17 Dose: 500 mg Documented by: Cefepime HCl (Cefepime 1 Gm Vial) 0.5 gm IV Q24H [facility] Last Admin: 09/13/21 09:21 Dose: 0.5 gm Documented by: Escitalopram Oxalate (Escitalopram 10 Mg Tablet) 10 mg PO QDAY [facility] Last Admin: 09/13/21 09:17 Dose: 10 mg Documented by: Folic Acid (Folic Acid 1 Mg Tablet) 1 mg PO DAILY [facility] Last Admin: 09/13/21 09:17 Dose: 1 mg Documented by: Potassium Chloride 40 meq/ (Dextrose) 520 mls @ 130 mls/hr IV UD PRN PRN Reason: Potassium < 3 Magnesium Sulfate (Magnesium Sulfate) 2 gm in 50 mls @ 50 mls/hr IV UD PRN PRN Reason: Magnesium </= 1.6 Loperamide HCl (Loperamide 2 Mg Capsule) 2 mg PO PRN PRN PRN Reason: Diarrhea Melatonin (Melatonin 3 Mg Tablet) 3 mg PO QHS [facility] Last Admin: 09/13/21 21:03 Dose: 3 mg Documented by: Metoprolol Tartrate (Metoprolol Tartrate 5 Mg/5 Ml Vial) 5 mg IV Q2HP PRN PRN Reason: Tachyarrhythmias HR>110 Ondansetron HCl (Ondansetron 4 Mg/2 Ml Vial) 4 mg IV Q4HP PRN PRN Reason: Nausea And Vomiting Polyethylene Glycol (Polyethylene Glycol 3350 17 Gm Packet) 17 gm PO DAILYP PRN PRN Reason: Constipation Potassium Chloride (Potassium Chloride 20 Meq Tablet) 40 meq PO UD PRN PRN Reason: Potssium is 3-3.5 Last Admin: 09/12/21 09:50 Dose: 40 meq Documented by: Potassium Chloride (Potassium Chloride 20 Meq Tablet) 40 meq PO UD PRN PRN Reason: Potassium < 3 Fluticasone/Salmeterol (Fluticasone/Salmeterol 50/100 Inhaler #14) 1 puff INH DAILY [facility] Last Admin: 09/13/21 09:18 Dose: 1 puff Documented by: Senna (Sennosides 1 Tablet) 2 tab PO DAILYP PRN PRN Reason: Constipation Sodium Bicarbonate (Sodium Bicarbonate 650 Mg Tablet) 650 mg PO BID [facility] Last Admin: 09/13/21 21:03 Dose: 650 mg Documented by: Sodium Chloride (0.9 % Sodium Chloride 10 Ml Syringe) 10 ml IV Q8 [facility] Last Admin: 09/14/21 05:31 Dose: 10 ml Documented by: A/P Narrative A/P Narrative: A: *Severe sepsis: 2/2 pyelonephritis, resolved *Hypotension: 2/2 above and resolved in the ED with IVF *Left pyelonephritis (Aerococcus/MDRO E.coli/Enterococcus): Has a left ureteral stent will be removed by Dr. Aparicio *Left obstructing ureteral stent & Nephrolithiasis: s/p stent/stone removal w/stent replacement (09/12) *Gross Hematuria: 2/2 above compounded by thrombocytopenia/coagulopathy *Anemia, acute blood loss on chronic: s/p procedure -2prbc (09/13) *RAMSES on CKD III: Follows Dr. Karthik -no improvement yet s/p stent placement *Met acidosis: 2/2 above *Thrombocytopenia, acute on chronic: *?cirrhosis: CT imaging read as cirrhosis with ascites. no portal vein thrombosis on u/s *Coagulopathy: 2/2 above *COPD(no home O2): *Depression/anxiety: *Crohn's: Follows with Dr. Jacobo P: -cont Cefepime -defer IVF per nephrology -Dr. Lane and Alessandra following -monitor H&H, transfuse platelets today and give FFP -hold home BB for low BP, restart when able -hold ASA for hematuria -cont home psych/IH's -pt/ot -f/u with Donnell regarding cirrhosis findings on CT -ppx: SCD DNR Time Spent With Patient Time: Total time spent is greater than 50% in coordination of care (as documented) at patient's floor/unit and/or counseling patient:
[2021-09-14 08:18] LABS: Basophils # (Auto) 0.01 K/mcL (0.00-0.30); Basophils % (Auto) 0.1 % (0.0-2.0); Eosinophils # (Auto) 0 K/mcL (0.00-0.70); Eosinophils % (Auto) 0 % (0.0-7.0); Hematocrit 28.9 % (34.1-44.9); Hemoglobin 9.7 g/dL (11.2-15.7); Lymphocytes # (Auto) 0.77 K/mcL (1.50-4.80); Lymphocytes % (Auto) 10.5 % (15.5-49.0); Mean Cell Volume 97.6 fL (80.0-100.0); Mean Corpuscular HGB Conc 33.6 g/dL (31.0-36.0); Mean Platelet Volume 10.7 fL (7.4-10.4); Monocytes % (Auto) 8.2 % (1.0-12.0); Neutrophils % (Auto) 81.2 % (38.0-78.0); Platelet Count 41 K/mcL (140-440); RBC 2.96 M/mcL (3.59-5.38); Red Cell Distribution Width 19.8 % (11.5-14.5); WBC 7.3 K/mcL (4.5-11.0)
[2021-09-14 08:21] LABS: INR 1.7 (0.9-1.1); Prothrombin Time 20.5 sec (11.9-14.5)
[2021-09-14] MEDS ORDERED: 0.9 % SODIUM CHLORIDE 250 ML IV SCH ×2 (08:30→08:45)
[2021-09-14 09:27] LABS: ALT/SGPT 14 U/L (<40); AST/SGOT 27 U/L (<32); Albumin 3.1 gm/dL (3.2-5.2); Albumin/Globulin Ratio 1.4 (1.0-2.3); Alkaline Phosphatase 47 U/L (39-117); Bilirubin,Direct 0.6 mg/dL (<0.3); Blood Urea Nitrogen 38 mg/dL (8-23); Carbon Dioxide 21 mmol/L (22-30); Chloride 97 mmol/L (96-108); Globulin 2.2 gm/dL (2.2-3.7); Glomerular Filtration Rate 7; Glucose 87 mg/dL (70-105); Lactate Dehydrogenase 209 U/L (135-225); Phosphorous 5.4 mg/dL (2.5-4.5); Triglycerides 53 mg/dL (<150); Uric Acid 11.3 mg/dL (2.5-8.0)
--- NOTE | 2021-09-14 10:28 | Nephrology Progress Note ---
SUBJECTIVE Subjective Patient information: Note initiated : 09/14/21 at 10:25 am Patient: Rani Toro a 81 y/o F admitted on 09/11/21 for Dizzy. Chief Complaint: Weakness Principal diagnosis: Retained left ureteral stent and renal failure Pertinent ROS: Weakness Pitts catheter with red urine No shortness of breath No nausea Constitutional Vitals: Vital Signs Temp Pulse Resp BP Pulse Ox 98.4 F 71 15 104/41 93 09/14/21 06:01 09/14/21 06:01 09/14/21 06:01 09/14/21 06:01 09/14/21 06:01 Period Temp Pulse Resp BP Sys/Sotelo Pulse Ox Last 24 Hr 97.6 F-98.6 F 65-78 13-21 78-124/40-85 93-100 Intake and Output 09/13/21 09/14/21 09/14/21 21:59 05:59 13:59 Intake Total 800 590 Output Total 200 100 Balance 600 -100 590 Weight 154 lb 4 oz Intake & Output: Intake & Output 09/13/21 09/14/21 09/14/21 21:59 05:59 13:59 Intake Total 800 590 Output Total 200 100 Balance 600 -100 590 Weight 154 lb 4 oz Intake: Oral 800 590 Output: Urine Catheter Amount 200 50 Void Amount 50 Other: Meal Breakfast Percent of Meal Consumed 50% Urine Appearance Hematuria Hematuria Uretheral (Pitts) Hematuria Urine Color Dark Red Dark Red Uretheral (Pitts) Dark Red General appearance: cooperative and no acute distress Head Head exam: Present normal inspection Eye Eye exam: Present normal appearance ENT ENT exam: Present mucous membranes moist Respiratory Respiratory exam: Absent respiratory distress Cardiovascular Cardiovascular exam: Present normal rate and rhythm GI/Abdominal GI/Abdominal exam: Present soft; Absent tenderness Extremities Exam Extremities exam: Absent joint swelling or pedal edema Neurological Exam Neurological exam: Present alert and oriented X3 Psychiatric Psychiatric exam: Present normal affect and normal mood Skin Skin exam: Present warm; Absent rash A/P Assessment and plan (1) Acute renal failure with acute tubular necrosis superimposed on stage 3a chronic kidney disease: Assessment and plan: Rani Toro is an 81-year-old female with a history of Crohn's disease, atrial fibrillation, hypertension, chronic obstructive pulmonary disease, chronic kidney disease stage 3-4, chronic thrombocytopenia and anemia, a long history of kidney stones, a left ureteral stent placed in October 2020 presented to [facility] ED for weakness. In ED, she was hypotensive, but responded to IV fluids. Her work-up was significant for acute kidney injury on chronic kidney disease. CT Abdomen and Pelvis without contrast on 09/10/21 reported abnormal ascending colon with pneumatosis and dilatation. There is infiltration of pericolonic fat. Etiology is not certain. Malignancy is possible. Ischemic colitis is possible although distribution is atypical. Cirrhosis. Moderate ascites. Bilateral renal calculi. There is a left ureteral stent present. There is a stone adjacent to the distal portion of the stent. Gas within the left renal collecting system. There is no intravesical gas. Emphysematous pyelitis is possible. She was diagnosed with sepsis, admitted and started on Vancomycin and Zosyn. Baseline serum creatinine: 0.9-1.4 (eGFR 35-60) in 2020, 2.1 (eGFR 21) on 08/15/21. Nephrology consultation was requested for acute kidney injury. Acute kidney injury, likely acute tubular necrosis and/orobstructive nephropat hyassociated with emphysematous pyelonephritis, nonfunctional right kidney on chronic kidney disease stage 3-4 with initial metabolic acidosis, present on arrival. There is no recent history of IV contrast administration or NSAID use. Intravascular volume depletion treated with adequate IV fluid resuscitation. Acute emphysematous pyelonephritis with Aerococcus urinae,Escherichia coli and Enterococcus species (by urine culture from 09/12/21). She was started on Vancomycin and Zosyn then changed to Cefepime. Chronic thrombocytopenia, worse, likely associated with cirrhosis of liver and sepsis. Acute on chronic anemia. Previous workup: NM Renal Scan on 08/31/21: Right kidney significant delayed excretion of radiotracer or obstruction. Workup: Renal US on 09/12/21: Nonobstructing renal calculi bilaterally.Mild left hydronephrosis.Elevated maximum systolic flow velocity in the proximal left renalartery. Left renal artery stenosis is probably about 50% diameter.Elevated resistive indices bilaterally. Urinalysis on 09/10/21: Green, Cloudy, pH 6.0, SG 1.020, protein >300, blood large, leukocyte esterase large, urine WBC >182, urine culture pending. CT Abdomen and Pelvis without contrast on 09/10/21: Abnormal ascending colon with pneumatosis and dilatation. There is infiltration of pericolonic fat. Etiology is not certain. Malignancy is possible. Ischemic colitis is possible although distribution is atypical. Cirrhosis. Moderate ascites. Bilateral renal calculi. There is a left ureteral stent present. There is a stone adjacent to the distal portion of the stent. Gas within the left renal collecting system. There is no intravesical gas. Emphysematous pyelitis is possible. Treatment: Sodium Bicarbonate 650 mg twice daily for hyperchloremic metabolic acidosis. Cystoscopy, difficult removal of retained, encrusted, left ureteral stent. Left retrograde pyelogram, left ureteroscopy, left holmium laser lithotripsy, left ureteral stone basketing, and left renal stent placement on 09/12/21. She needs further cleaning. Progress: Serum creatinine increased from 5.5 to 5.6 in the past 24 hours. Baseline serum creatinine: 0.9-1.4 (eGFR 35-60) in 2020, 2.1 (eGFR 21) on 08/15/21. Urine output: 350+ ml reported in the past 24 hours. Hyperchloremic metabolic acidosis, improved. Hypokalemia associated with correction of metabolic acidosis, resolved. Fluid overload. I/O: + 11.1 L Weight: +4 lb No uremic symptoms. Recommendations/Plan: No urgent acute hemodialysis need. Avoid NSAIDs, nephrotoxic medications and IV contrast. Monitor BMP and urine output. Status: Acute (2) Metabolic acidosis: Status: Acute Time Spent With Patient Time: Total time spent is greater than 50% in coordination of care (as documented) at patient's floor/unit and/or counseling patient:
[2021-09-14] MEDS: FOLIC ACID 1 MG TABLET PO SCH (10:31)
[2021-09-14] MEDS: SODIUM BICARBONATE 650 MG TABLET PO SCH ×2 (10:32→21:07)
[2021-09-14] MEDS: busPIRone 5 MG TABLET PO SCH (10:32)
[2021-09-14] MEDS: ESCITALOPRAM 10 MG TABLET PO SCH (10:32)
[2021-09-14] MEDS: CALCIUM CARBONATE 500 MG TAB.CHEW CHEWED SCH (10:32)
[2021-09-14] MEDS: FLUTICASONE/SALMETEROL 50/100 INHALER #14 INH SCH (10:32)
[2021-09-14] MEDS: CEFEPIME 1 GM VIAL IV SCH (11:15)
--- NOTE | 2021-09-14 12:19 | Internal Med Progress Note ---
SUBJECTIVE Subjective Patient information: Note initiated : 09/15/21 at 12:16 pm Service Date, if different from initiated Date: [] Patient: Rani Toro a 81 y/o F admitted on 09/11/21 for Dizzy. Chief Complaint: [] Principal diagnosis: Retained left ureteral stent and renal failure Interval history: History of present illness: Ms. Toro is a 81 year old F Presents to the ED with increasing weakness and lightheadedness. Patient had hard time walking to the bathroom without having to sit down from feeling lightheadedness. Denies fever chills nausea vomiting. Denies chest pain or stomach pain. Abnormal bowel function from Crohn's. Has a history of chronic kidney disease and follows with Dr. Angeles. Chronic thrombocytopenia and anemia. Old notes report a single episode of atrial fibrillation but none since; and confirmed by pt. She has a left kidney stents post removed by Dr. Aparicio on Saturday. On evaluation the ED she was hypotensive initially which responded to IV fluid. She is work-up but found to have acute acute kidney injury on chronic kidney disease. Wound to have pyelonephritis on the left. Case discussed with Dr. Karthik Aparicio. CT abdominal also read as pneumatosis in the colon and case discussed with Dr. Tate who will see the patient in the morning but did not have any recom mendations at this point. 09/11 Doing better. Not getting lightheaded like she was before. Poor sleep. 09/12 Patient doing well. Scheduled to get stent out today. IV fluids per nephrology. Chemistry pending. 09/13 Patient had ureteral stent removed and replaced yesterday and stones removed. Hemoglobin below 7 today and will transfuse. Patient feels well overall. Renal function has not improved. 09/14 Gross hematuria. Patient feels well. No overnight event or new complaints. Received blood transfusion yesterday. Given the active bleeding and the platelets down to 41k will transfuse plat elets. FFP given coagulopathy. Awaiting renal function panel. Added Ampicillin for enterococcus that grew in urine culture. 09/15 Continues to have gross hematuria, making urine. Platelets 46, INR 1.8. creatinine about the same as yesterday at 5.7. Abdomen appears to be distended. The patient feels well. Physical exam Head: Atraumatic, normal inspection. Eyes: normal appearance, no scleral icterus. Neck: full ROM Respiratory: no respiratory distress. Cardiovascular: normal rate and rhythm, S1, S2. GI/Abdominal: distended abdomen, nontender, no guarding. : Pitts catheter with gross hematuria. Extremities: full range of motion, nontender. Neurological: CN II-XII intact, intact motor, intact sensation. Psychiatric: normal mood. Skin: warm, normal color Constitutional Vitals: Vital Signs Temp Pulse Resp BP Pulse Ox 98.0 F 74 18 108/48 97 09/14/21 11:01 09/14/21 11:14 09/14/21 10:05 09/14/21 11:01 09/14/21 11:14 Period Temp Pulse Resp BP Sys/Sotelo Pulse Ox Last 24 Hr 97.6 F-98.6 F 65-75 13-21 85-124/41-85 93-100 Intake and Output 09/13/21 09/14/21 09/14/21 21:59 05:59 13:59 Intake Total 800 786 Output Total 200 100 125 Balance 600 -100 661 Weight 69.967 kg Intake & Output: Intake & Output 09/13/21 09/14/21 09/14/21 21:59 05:59 13:59 Intake Total 800 786 Output Total 200 100 125 Balance 600 -100 661 Weight 69.967 kg Intake: Oral 800 590 Blood Product 196 Output: Urine Catheter Amount 200 50 125 Void Amount 50 Other: Meal Breakfast Percent of Meal Consumed 50% Urine Appearance Hematuria Hematuria Clear Uretheral (Pitts) Hematuria Urine Color Dark Red Dark Red Dark Yellow Uretheral (Pitts) Dark Red OBJ DATA Labs CBC & Chem 7: 09/15/21 14:28 09/15/21 05:00 Labs: Abnormal Lab Results 09/14/21 09/14/21 09/14/21 06:12 06:12 06:12 RBC 2.96 L Hgb 9.7 L Hct 28.9 L MCV MCH RDW 19.8 H Plt Count 41 L* MPV 10.7 H Neut % (Auto) 81.2 H Lymph % (Auto) 10.5 L Lymph # (Auto) 0.77 L PT 20.5 H INR 1.7 H Potassium Carbon Dioxide 21 L BUN 38 H Creatinine 5.6 H* Glucose Uric Acid 11.3 H Calcium 7.0 L Phosphorus 5.4 H Total Bilirubin 2.0 H Direct Bilirubin 0.6 H Total Protein 5.3 L Albumin 3.1 L 09/13/21 09/13/21 09/12/21 05:53 05:53 07:26 RBC 1.99 L Hgb 6.8 L* Hct 20.8 L* MCV 104.5 H MCH 34.2 H RDW 16.8 H Plt Count 47 L* MPV Neut % (Auto) 80.4 H Lymph % (Auto) 12.3 L Lymph # (Auto) 0.74 L PT INR Potassium 3.2 L Carbon Dioxide 21 L 18 L BUN 32 H 33 H Creatinine 5.5 H* 5.3 H* Glucose 117 H Uric Acid 12.5 H Calcium 6.9 L 7.6 L Phosphorus Total Bilirubin Direct Bilirubin 0.4 H Total Protein 5.6 L Albumin 2.8 L 09/12/21 09/12/21 07:26 05:49 RBC 2.25 L Hgb 7.8 L Hct 24.1 L MCV 107.1 H MCH 34.7 H RDW 17.2 H Plt Count 56 L MPV 10.8 H Neut % (Auto) Lymph % (Auto) Lymph # (Auto) 1.35 L PT 20.2 H INR 1.6 H Potassium Carbon Dioxide BUN Creatinine Glucose Uric Acid Calcium Phosphorus Total Bilirubin Direct Bilirubin Total Protein Albumin Meds: Medications Acetaminophen (Acetaminophen 325 Mg Tablet) 650 mg PO Q6HP PRN; Protocol PRN Reason: Per Pain Protocol/Fever > 101 Last Admin: 09/12/21 20:17 Dose: 650 mg Documented by: Albuterol/Ipratropium (Ipratropium/Albuterol 3 Ml Ampul.Neb) 3 ml NEB Q4HP PRN PRN Reason: Shortness Of Breath Atorvastatin Calcium (Atorvastatin 10 Mg Tablet) 10 mg PO [facility] Last Admin: 09/13/21 21:03 Dose: 10 mg Documented by: Buspirone HCl (Buspirone 5 Mg Tablet) 2.5 mg PO DAILY [facility] Last Admin: 09/14/21 10:32 Dose: 2.5 mg Documented by: Calcium Carbonate/Glycine (Calcium Carbonate 500 Mg Tab.Chew) 500 mg CHEWED DAILY [facility] Last Admin: 09/14/21 10:32 Dose: 500 mg Documented by: Cefepime HCl (Cefepime 1 Gm Vial) 0.5 gm IV Q24H [facility] Last Admin: 09/14/21 11:15 Dose: 0.5 gm Documented by: Escitalopram Oxalate (Escitalopram 10 Mg Tablet) 10 mg PO QDAY [facility] Last Admin: 09/14/21 10:32 Dose: 10 mg Documented by: Folic Acid (Folic Acid 1 Mg Tablet) 1 mg PO DAILY [facility] Last Admin: 09/14/21 10:31 Dose: 1 mg Documented by: Potassium Chloride 40 meq/ (Dextrose) 520 mls @ 130 mls/hr IV UD PRN PRN Reason: Potassium < 3 Magnesium Sulfate (Magnesium Sulfate) 2 gm in 50 mls @ 50 mls/hr IV UD PRN PRN Reason: Magnesium </= 1.6 Sodium Chloride (Sodium Chloride 0.9%) 250 mls @ 20 mls/hr IV .[id number] [facility] Stop: 09/14/21 20:59 Last Admin: 09/14/21 10:33 Dose: 20 mls/hr Documented by: Sodium Chloride (Sodium Chloride 0.9%) 250 mls @ 20 mls/hr IV .[id number] [facility] Stop: 09/14/21 21:14 Last Admin: 09/14/21 10:33 Dose: Not Given Documented by: Loperamide HCl (Loperamide 2 Mg Capsule) 2 mg PO PRN PRN PRN Reason: Diarrhea Melatonin (Melatonin 3 Mg Tablet) 3 mg PO QHS [facility] Last Admin: 09/13/21 21:03 Dose: 3 mg Documented by: Metoprolol Tartrate (Metoprolol Tartrate 5 Mg/5 Ml Vial) 5 mg IV Q2HP PRN PRN Reason: Tachyarrhythmias HR>110 Ondansetron HCl (Ondansetron 4 Mg/2 Ml Vial) 4 mg IV Q4HP PRN PRN Reason: Nausea And Vomiting Polyethylene Glycol (Polyethylene Glycol 3350 17 Gm Packet) 17 gm PO DAILYP PRN PRN Reason: Constipation Potassium Chloride (Potassium Chloride 20 Meq Tablet) 40 meq PO UD PRN PRN Reason: Potssium is 3-3.5 Last Admin: 09/12/21 09:50 Dose: 40 meq Documented by: Potassium Chloride (Potassium Chloride 20 Meq Tablet) 40 meq PO UD PRN PRN Reason: Potassium < 3 Fluticasone/Salmeterol (Fluticasone/Salmeterol 50/100 Inhaler #14) 1 puff INH DAILY [facility] Last Admin: 09/14/21 10:32 Dose: 1 puff Documented by: Senna (Sennosides 1 Tablet) 2 tab PO DAILYP PRN PRN Reason: Constipation Sodium Bicarbonate (Sodium Bicarbonate 650 Mg Tablet) 650 mg PO BID [facility] Last Admin: 09/14/21 10:32 Dose: 650 mg Documented by: Sodium Chloride (0.9 % Sodium Chloride 10 Ml Syringe) 10 ml IV Q8 [facility] Last Admin: 09/14/21 05:31 Dose: 10 ml Documented by: A/P Narrative A/P Narrative: A: *Severe sepsis: 2/2 pyelonephritis, resolved *Hypotension: 2/2 above and resolved in the ED with IVF *Left pyelonephritis (Aerococcus/MDRO E.coli/Enterococcus): Has a left ureteral stent will be removed by Dr. Aparicio *Left obstructing ureteral stent & Nephrolithiasis: s/p stent/stone removal w/ stent replacement (09/12) *Gross Hematuria: 2/2 above compounded by thrombocytopenia/coagulopathy *Anemia, acute blood loss on chronic: s/p procedure -2prbc (09/13) *RAMSES on CKD III: Follows Dr. Angeles -no improvement yet s/p stent placement *Met acidosis: 2/2 above *Thrombocytopenia, acute on chronic: *Liver cirrhosis: CT imaging read as cirrhosis with ascites. no portal vein thrombosis on u/s *Ascites *Coagulopathy: 2/2 above *COPD(no home O2): *Depression/anxiety: *Crohn's: Follows with Dr. Jacobo P: -Cefepime and Ampicillin for polymicrobial pyelonephritis. -defer IVF per nephrology -Dr. Tavarez following -monitor H&H, transfuse as indicated. -monitor platelets and INR. -hold home BB for low BP, restart when able -Paracentesis as needed w/ workup for etiology, include cytology. -hold ASA for hematuria -cont home psych/IH's -pt/ot -f/u with Donnell regarding cirrhosis findings on CT -ppx: SCD DNR Time Spent With Patient Time: Total time spent is greater than 50% in coordination of care (as documented) at patient's floor/unit and/or counseling patient:
[2021-09-14] MEDS ORDERED: AMPICILLIN SODIUM 2 GM VIAL IV SCH (12:30)
[2021-09-14] MEDS: AMPICILLIN SODIUM 2 GM in 0.9 % SODIUM CHLORIDE 100 ML IV SCH (13:57)
[2021-09-14] MEDS: POTASSIUM CHLORIDE 20 MEQ TABLET PO PRN (14:25)
[2021-09-14 17:49] LABS: Basophils # (Auto) 0.01 K/mcL (0.00-0.30); Basophils % (Auto) 0.1 % (0.0-2.0); Eosinophils # (Auto) 0.04 K/mcL (0.00-0.70); Eosinophils % (Auto) 0.5 % (0.0-7.0); Hematocrit 28.8 % (34.1-44.9); Lymphocytes # (Auto) 0.74 K/mcL (1.50-4.80); Lymphocytes % (Auto) 9.7 % (15.5-49.0); Mean Corpuscular HGB Conc 34.7 g/dL (31.0-36.0); Mean Platelet Volume 10.8 fL (7.4-10.4); Monocytes # (Auto) 0.75 K/mcL (0.10-0.90); Monocytes % (Auto) 9.8 % (1.0-12.0); Neutrophils % (Auto) 79.9 % (38.0-78.0); Platelet Count 63 K/mcL (140-440); RBC 2.97 M/mcL (3.59-5.38); Red Cell Distribution Width 19.9 % (11.5-14.5); WBC 7.6 K/mcL (4.5-11.0)
[2021-09-14] MEDS: MAGNESIUM SULFATE 2 GM/50 ML BAG IV PRN (19:55)
[2021-09-14] MEDS: ATORVASTATIN 10 MG TABLET PO SCH (21:07)
[2021-09-14] MEDS: MELATONIN 3 MG TABLET PO SCH (21:07)
[2021-09-15] MEDS: 0.9 % SODIUM CHLORIDE 10 ML SYRINGE IV SCH ×3 (05:52→20:31)
[2021-09-15 06:51] LABS: INR 1.6 (0.9-1.1); Prothrombin Time 19.5 sec (11.9-14.5)
[2021-09-15 07:22] LABS: Basophils # (Auto) 0 K/mcL (0.00-0.30); Basophils % (Auto) 0 % (0.0-2.0); Blood Urea Nitrogen 45 mg/dL (8-23); Calcium 7.4 mg/dL (8.6-10.4); Carbon Dioxide 22 mmol/L (22-30); Chloride 98 mmol/L (96-108); Eosinophils % (Auto) 1.6 % (0.0-7.0); Glomerular Filtration Rate 6; Glucose 82 mg/dL (70-105); Hemoglobin 8.7 g/dL (11.2-15.7); Lymphocytes # (Auto) 0.56 K/mcL (1.50-4.80); Lymphocytes % (Auto) 9.2 % (15.5-49.0); Mean Cell Volume 98.5 fL (80.0-100.0); Mean Corpuscular HGB Conc 33.5 g/dL (31.0-36.0); Mean Platelet Volume 11.1 fL (7.4-10.4); Monocytes # (Auto) 0.64 K/mcL (0.10-0.90); Monocytes % (Auto) 10.5 % (1.0-12.0); Neutrophils % (Auto) 78.7 % (38.0-78.0); Platelet Count 46 K/mcL (140-440); RBC 2.64 M/mcL (3.59-5.38); Red Cell Distribution Width 19.4 % (11.5-14.5); WBC 6.1 K/mcL (4.5-11.0)
--- NOTE | 2021-09-15 07:44 | Nephrology Progress Note ---
SUBJECTIVE Subjective Patient information: Note initiated : 09/15/21 at 7:41 am Patient: Rani Toro 81 y/o F admitted on 09/11/21 for Dizzy. Chief Complaint: Weakness Principal diagnosis: Retained left ureteral stent and renal failure Pertinent ROS: Weakness No shortness of breath No nausea Pitts catheter Constitutional Vitals: Vital Signs Temp Pulse Resp BP Pulse Ox 99.4 F H 77 14 100/48 94 09/15/21 04:02 09/15/21 04:02 09/15/21 04:02 09/15/21 04:02 09/15/21 07:00 Period Temp Pulse Resp BP Sys/Sotelo Pulse Ox Last 24 Hr 98.0 F-99.4 F 72-103 14-18 91-127/40-74 92-100 Intake and Output 09/14/21 09/15/21 09/15/21 21:59 05:59 13:59 Intake Total 479 Output Total 150 645 Balance 329 -645 Weight 170 lb 170 lb 6.4 oz Intake & Output: Intake & Output 09/14/21 09/15/21 09/15/21 21:59 05:59 13:59 Intake Total 479 Output Total 150 645 Balance 329 -645 Weight 170 lb 170 lb 6.4 oz Intake: IV 219 Sodium Chloride 0.9% 250 ml @ 69 20 mls/hr IV .[id number] [facility] Rx#: [id number] Ampicillin 2 gm In Sodium 100 Chloride 0.9% 100 ml @ 100 mls/ hr IV Q24H [facility] Rx#:[id number] Oral 260 Output: Urine Catheter Amount 150 120 Stool 525 Other: Meal Dinner Percent of Meal Consumed 50% Feeding Ability Independent Urine Appearance Hematuria Hematuria Uretheral (Pitts) Hematuria Hematuria Urine Color Dark Red Bright Red Uretheral (Pitts) Dark Red Urine Odor Normal Stool Color Brown Stool Consistency Liquid General appearance: cooperative and no acute distress Head Head exam: Present normal inspection Eye Eye exam: Present normal appearance ENT ENT exam: Present mucous membranes moist Respiratory Respiratory exam: Absent respiratory distress Cardiovascular Cardiovascular exam: Present normal rate and rhythm GI/Abdominal GI/Abdominal exam: Present soft; Absent tenderness Extremities Exam Extremities exam: Present pedal edema Neurological Exam Neurological exam: Present alert and oriented X3 Psychiatric Psychiatric exam: Present normal affect and normal mood Skin Skin exam: Present warm; Absent rash A/P Assessment and plan (1) Acute renal failure with acute tubular necrosis superimposed on stage 3a chronic kidney disease: Assessment and plan: Rani Toro is an 81-year-old female with a history of Crohn's disease, atrial fibrillation, hypertension, chronic obstructive pulmonary disease, chronic kidney disease stage 3-4, chronic thrombocytopenia and anemia, a long history of kidney stones, a left ureteral stent placed in October 2020 presented to [facility] ED for weakness. In ED, she was hypotensive, but responded to IV fluids. Her work-up was significant for acute kidney injury on chronic kidney disease. CT Abdomen and Pelvis without contrast on 09/10/21 reported abnormal ascending colon with pneumatosis and dilatation. There is infiltration of pericolonic fat. Etiology is not certain. Malignancy is possible. Ischemic colitis is possible although distribution is atypical. Cirrhosis. Moderate ascites. Bilateral renal calculi. There is a left ureteral stent present. There is a stone adjacent to the distal portion of the stent. Gas within the left renal collecting system. There is no intravesical gas. Emphysematous pyelitis is possible. She was diagnosed with sepsis, admitted and started on Vancomycin and Zosyn. Baseline serum creatinine: 0.9-1.4 (eGFR 35-60) in 2020, 2.1 (eGFR 21) on 08/15/21. Nephrology consultation was requested for acute kidney injury. Acute kidney injury, likely acute tubular necrosis and/orobstructive nephropathyassociated with emphysematous pyelonephritis, nonfunctional right kidney on chronic kidney disease stage 3-4 with initial metabolic acidosis, present on arrival. There is no recent history of IV contrast administration or NSAID use. Intravascular volume depletion treated with adequate IV fluid resuscitation. Acute emphysematous pyelonephritis with Aerococcus urinae,Escherichia coli and Enterococcus species (by urine culture from 09/12/21). She was started on Vancomycin and Zosyn then changed to Cefepime. Chronic thrombocytopenia, worse, likely associated with cirrhosis of liver and sepsis. Acute on chronic anemia. Previous workup: NM Renal Scan on 08/31/21: Right kidney significant delayed excretion of radiotracer or obstruction. Workup: Renal US on 09/12/21: Nonobstructing renal calculi bilaterally.Mild left hydronephrosis.Elevated maximum systolic flow velocity in the proximal left renalartery. Left renal artery stenosis is probably about 50% diameter.Elevated resistive indices bilaterally. Urinalysis on 09/10/21: Green, Cloudy, pH 6.0, SG 1.020, protein >300, blood large, leukocyte esterase large, urine WBC >182, urine culture pending. CT Abdomen and Pelvis without contrast on 09/10/21: Abnormal ascending colon with pneumatosis and dilatation. There is infiltration of pericolonic fat. Etiology is not certain. Malignancy is possible. Ischemic colitis is possible although distribution is atypical. Cirrhosis. Moderate ascites. Bilateral renal calculi. There is a left ureteral stent present. There is a stone adjacent to the distal portion of the stent. Gas within the left renal collecting system. There is no intravesical gas. Emphysematous pyelitis is possible. Treatment: Sodium Bicarbonate 650 mg twice daily for hyperchloremic metabolic acidosis. Cystoscopy, difficult removal of retained, encrusted, left ureteral stent. Left retrograde pyelogram, left ureteroscopy, left holmium laser lithotripsy, left ureteral stone basketing, and left renal stent placement on 09/12/21. She needs further cleaning. Progress: Serum creatinine increased from 5.6 to 5.7 in the past 24 hours. Baseline serum creatinine: 0.9-1.4 (eGFR 35-60) in 2020, 2.1 (eGFR 21) on 08/15/21. Urine output: 520 ml reported in the past 24 hours. Hyperchloremic metabolic acidosis, resolved. Hypokalemia associated with correction of metabolic acidosis, resolved. Fluid overload with lower extremity edema. I/O: + 11.4 L Weight: +4 lb No uremic symptoms. Recommendations/Plan: No urgent acute hemodialysis need. Avoid NSAIDs, nephrotoxic medications and IV contrast. Monitor BMP and urine output. Status: Acute (2) Metabolic acidosis: Status: Acute Time Spent With Patient Time: Total time spent is greater than 50% in coordination of care (as documented) at patient's floor/unit and/or counseling patient:
[2021-09-15] MEDS: SODIUM BICARBONATE 650 MG TABLET PO SCH ×2 (08:00→20:31)
[2021-09-15] MEDS: FOLIC ACID 1 MG TABLET PO SCH (08:00)
[2021-09-15] MEDS: ESCITALOPRAM 10 MG TABLET PO SCH (08:00)
[2021-09-15] MEDS: CEFEPIME 1 GM VIAL IV SCH (08:00)
[2021-09-15] MEDS: CALCIUM CARBONATE 500 MG TAB.CHEW CHEWED SCH (08:00)
[2021-09-15] MEDS: busPIRone 5 MG TABLET PO SCH (08:00)
[2021-09-15] MEDS: FLUTICASONE/SALMETEROL 50/100 INHALER #14 INH SCH (08:01)
[2021-09-15] MEDS: AMPICILLIN SODIUM 2 GM in 0.9 % SODIUM CHLORIDE 100 ML IV SCH (09:42)
[2021-09-15] MEDS: POTASSIUM CHLORIDE 20 MEQ TABLET PO PRN (18:39)
[2021-09-15] MEDS: ATORVASTATIN 10 MG TABLET PO SCH (20:31)
[2021-09-15] MEDS: MELATONIN 3 MG TABLET PO SCH (20:31)
[2021-09-15] MEDS: LOPERAMIDE 2 MG CAPSULE PO PRN (20:51)
[2021-09-16] MEDS: 0.9 % SODIUM CHLORIDE 10 ML SYRINGE IV SCH ×3 (05:18→22:00)
[2021-09-16] MEDS: FOLIC ACID 1 MG TABLET PO SCH (08:40)
[2021-09-16] MEDS: CALCIUM CARBONATE 500 MG TAB.CHEW CHEWED SCH (08:40)
[2021-09-16] MEDS: ESCITALOPRAM 10 MG TABLET PO SCH (08:41)
[2021-09-16] MEDS: SODIUM BICARBONATE 650 MG TABLET PO SCH ×2 (08:41→20:58)
[2021-09-16] MEDS: busPIRone 5 MG TABLET PO SCH (08:41)
[2021-09-16] MEDS: CEFEPIME 1 GM VIAL IV SCH (08:42)
[2021-09-16] MEDS: AMPICILLIN SODIUM 2 GM in 0.9 % SODIUM CHLORIDE 100 ML IV SCH (08:47)
[2021-09-16] MEDS: FLUTICASONE/SALMETEROL 50/100 INHALER #14 INH SCH (08:49)
[2021-09-16 08:53] LABS: Basophils # (Auto) 0.02 K/mcL (0.00-0.30); Basophils % (Auto) 0.3 % (0.0-2.0); Eosinophils # (Auto) 0.15 K/mcL (0.00-0.70); Hematocrit 29.2 % (34.1-44.9); Hemoglobin 9.3 g/dL (11.2-15.7); Lymphocytes # (Auto) 0.62 K/mcL (1.50-4.80); Lymphocytes % (Auto) 8.2 % (15.5-49.0); Mean Cell Volume 103.5 fL (80.0-100.0); Mean Corpuscular HGB Conc 31.8 g/dL (31.0-36.0); Mean Platelet Volume 11.4 fL (7.4-10.4); Monocytes # (Auto) 0.75 K/mcL (0.10-0.90); Neutrophils % (Auto) 79.5 % (38.0-78.0); Platelet Count 43 K/mcL (140-440); RBC 2.82 M/mcL (3.59-5.38); Red Cell Distribution Width 19.2 % (11.5-14.5); WBC 7.5 K/mcL (4.5-11.0)
[2021-09-16 09:08] LABS: ALT/SGPT 12 U/L (<40); AST/SGOT 20 U/L (<32); Albumin 2.8 gm/dL (3.2-5.2); Albumin/Globulin Ratio 1.1 (1.0-2.3); Alkaline Phosphatase 49 U/L (39-117); Bilirubin,Direct 0.6 mg/dL (<0.3); Bilirubin,Total 1.4 mg/dL (0.1-1.0); Blood Urea Nitrogen 43 mg/dL (8-23); Calcium 7.9 mg/dL (8.6-10.4); Carbon Dioxide 20 mmol/L (22-30); Chloride 96 mmol/L (96-108); Globulin 2.6 gm/dL (2.2-3.7); Glomerular Filtration Rate 7; Glucose 91 mg/dL (70-105); Lactate Dehydrogenase 226 U/L (135-225); Phosphorous 3.7 mg/dL (2.5-4.5); Triglycerides 58 mg/dL (<150); Uric Acid 10.8 mg/dL (2.5-8.0)
--- NOTE | 2021-09-16 09:29 | Nephrology Progress Note ---
SUBJECTIVE Subjective Patient information: Note initiated : 09/16/21 at 9:26 am Patient: Rani Toro 81 y/o F admitted on 09/11/21 for Dizzy. Chief Complaint: Weakness Principal diagnosis: Retained left ureteral stent and renal failure Pertinent ROS: Weakness Edema Pitts catheter with bloody urine Constitutional Vitals: Vital Signs Temp Pulse Resp BP Pulse Ox 98.3 F 94 H 19 114/63 98 09/16/21 08:01 09/16/21 08:01 09/16/21 08:01 09/16/21 08:01 09/16/21 08:01 Period Temp Pulse Resp BP Sys/Sotelo Pulse Ox Last 24 Hr 98.3 F-99.7 F 81-96 98-120/39-63 93-100 Intake and Output 09/15/21 09/16/21 09/16/21 21:59 05:59 13:59 Intake Total 420 60 Output Total 445 135 Balance -25 -75 Weight 172 lb 8 oz Intake & Output: Intake & Output 09/15/21 09/16/21 09/16/21 21:59 05:59 13:59 Intake Total 420 60 Output Total 445 135 Balance -25 -75 Weight 172 lb 8 oz Intake: Nourishment/Supplement quantity 240 (ml) Oral 180 60 Output: Urine Catheter Amount 245 135 Stool 200 Other: Meal Nourishment/Supplement Nourishment/Supplement name Ensure Urine Appearance Hematuria Clear Uretheral (Pitts) Hematuria Urine Color Tea Colored Uretheral (Pitts) Blood Tinged Urine Odor Normal Stool Size Moderate Stool Color Brown Brown Stool Consistency Loose Watery Head Head exam: Present atraumatic and normal inspection Eye Eye exam: Present normal appearance ENT ENT exam: Present mucous membranes moist, normal exam and normal external ear exam Neck Neck exam: Present normal inspection Respiratory Respiratory exam: Present normal respiratory exam Cardiovascular Cardiovascular exam: Present normal rate and rhythm GI/Abdominal GI/Abdominal exam: Present normal bowel sounds Back Exam Back exam: Present normal inspection Neurological Exam Neurological exam: Present alert and oriented X3 Skin Skin exam: Present intact and warm A/P Assessment and plan (1) Acute renal failure with acute tubular necrosis superimposed on stage 3a chronic kidney disease: Assessment and plan: Rani Toro is an 81-year-old female with a history of Crohn's disease, atrial fibrillation, hypertension, chronic obstructive pulmonary disease, chronic kidney disease stage 3-4, chronic thrombocytopenia and anemia, a long history of kidney stones, a left ureteral stent placed in October 2020 presented to [facility] ED for weakness. In ED, she was hypotensive, but responded to IV fluids. Her work-up was significant for acute kidney injury on chronic kidney disease. CT Abdomen and Pelvis without contrast on 09/10/21 reported abnormal ascending colon with pneumatosis and dilatation. There is infiltration of pericolonic fat. Etiology is not certain. Malignancy is possible. Ischemic colitis is possible although distribution is atypical. Cirrhosis. Moderate ascites. Bilateral renal calculi. There is a left ureteral stent present. There is a stone adjacent to the distal portion of the stent. Gas within the left renal collecting system. There is no intravesical gas. Emphysematous pyelitis is possible. She was diagnosed with sepsis, admitted and started on Vancomycin and Zosyn. Baseline serum creatinine: 0.9-1.4 (eGFR 35-60) in 2020, 2.1 (eGFR 21) on 08/15/21. Nephrology consultation was requested for acute kidney injury. Acute kidney injury, likely acute tubular necrosis and/orobstructive nephropathyassociated with emphysematous pyelonephritis, nonfunctional right kidney on chronic kidney disease stage 3-4 with initial metabolic acidosis, present on arrival. There is no recent history of IV contrast administration or NSAID use. Intravascular volume depletion treated with adequate IV fluid resuscitation. Acute emphysematous pyelonephritis with Aerococcus urinae,Escherichia coli and Enterococcus species (by urine culture from 09/12/21). She was started on Vancomycin and Zosyn then changed to Cefepime. Chronic thrombocytopenia, worse, likely associated with cirrhosis of liver and sepsis. Acute on chronic anemia. Previous workup: NM Renal Scan on 08/31/21: Right kidney significant delayed excretion of radiotracer or obstruction. Workup: Renal US on 09/12/21: Nonobstructing renal calculi bilaterally.Mild left hydronephrosis.Elevated maximum systolic flow velocity in the proximal left renalartery. Left renal artery stenosis is probably about 50% diameter.Elevated resistive indices bilaterally. Urinalysis on 09/10/21: Green, Cloudy, pH 6.0, SG 1.020, protein >300, blood large, leukocyte esterase large, urine WBC >182, urine culture pending. CT Abdomen and Pelvis without contrast on 09/10/21: Abnormal ascending colon with pneumatosis and dilatation. There is infiltration of pericolonic fat. Etiology is not certain. Malignancy is possible. Ischemic colitis is possible although distribution is atypical. Cirrhosis. Moderate ascites. Bilateral renal calculi. There is a left ureteral stent present. There is a stone adjacent to the distal portion of the stent. Gas within the left renal collecting system. There is no intravesical gas. Emphysematous pyelitis is possible. Treatment: Sodium Bicarbonate 650 mg twice daily for hyperchloremic metabolic acidosis. Cystoscopy, difficult removal of retained, encrusted, left ureteral stent. Left retrograde pyelogram, left ureteroscopy, left holmium laser lithotripsy, left ureteral stone basketing, and left renal stent placement on 09/12/21. She needs further cleaning. Progress: Serum creatinine decreased from 5.7 to 5.3 in the past 24 hours. Baseline serum creatinine: 0.9-1.4 (eGFR 35-60) in 2020, 2.1 (eGFR 21) on 08/15/21. Urine output: 520 ml reported in the past 24 hours. Hyperchloremic metabolic acidosis, resolved. Hypokalemia associated with correction of metabolic acidosis, resolved. Fluid overload with lower extremity edema. I/O: + 11.7 L No uremic symptoms. Recommendations/Plan: No urgent acute hemodialysis need. Outpatient nephrology follow up with Dr. Angeles. Status: Acute (2) Metabolic acidosis: Status: Acute Time Spent With Patient Time: Total time spent is greater than 50% in coordination of care (as documented) at patient's floor/unit and/or counseling patient:
[2021-09-16] MEDS ORDERED: ALBUMIN HUMAN 37.5 GM/150 ML BAG IV ONE (14:53)
--- NOTE | 2021-09-16 14:53 | Procedure Note ---
PROC Paracentesis Consent obtained: verbal consent and written consent Date of Procedure: 09/16/21 Time out performed: Yes Indication: Ascites Procedure: therapeutic paracentesis Location: RLQ Local anesthetic used: lidocaine 1% Amount of anesthesia used (mLs): 10 Bedside ultrasound used: yes, Ascites confirmed and location marked Preparation: sterile prep and drape Amount of fluid obtained: 5,200 Fluid: clear and sent to lab for analysis Size of needle used: 19 Post procedure exam: awake, alert Patient tolerated procedure: well and no complications
--- NOTE | 2021-09-16 15:09 | Internal Med Progress Note ---
SUBJECTIVE Subjective Patient information: Note initiated : 09/16/21 at 3:05 pm Service Date, if different from initiated Date: [] Patient: Rani Toro a 81 y/o F admitted on 09/11/21 for Dizzy. Chief Complaint: [] Principal diagnosis: Retained left ureteral stent and renal failure Interval history: History of present illness: Ms. Toro is a 81 year old F Presents to the ED with increasing weakness and lightheadedness. Patient had hard time walking to the bathroom without having to sit down from feeling lightheadedness. Denies fever chills nausea vomiting. Denies chest pain or stomach pain. Abnormal bowel function from Crohn's. Has a history of chronic kidney disease and follows with Dr. Angeles. Chronic thrombocytopenia and anemia. Old notes report a single episode of atrial fibrillation but none since; and confirmed by pt. She has a left kidney stents post removed by Dr. Aparicio on Saturday. On evaluation the ED she was hypotensive initially which responded to IV fluid. She is work-up but found to have acute acute kidney injury on chronic kidney disease. Wound to have pyelonephritis on the left. Case discussed with Dr. Karthik Aparicio. CT abdominal also read as pneumatosis in the colon and case discussed with Dr. Tate who will see the patient in the morning but did not have any recomm endations at this point. 09/11 Doing better. Not getting lightheaded like she was before. Poor sleep. 09/12 Patient doing well. Scheduled to get stent out today. IV fluids per nephrology. Chemistry pending. 09/13 Patient had ureteral stent removed and replaced yesterday and stones removed. Hemoglobin below 7 today and will transfuse. Patient feels well overall. Renal function has not improved. 09/14 Gross hematuria. Patient feels well. No overnight event or new complaints. Received blood transfusion yesterday. Given the active bleeding and the platelets down to 41k will transfuse plate lets. FFP given coagulopathy. Awaiting renal function panel. Added Ampicillin for enterococcus that grew in urine culture. 09/15 Continues to have gross hematuria, making urine. Platelets 46, INR 1.8. creatinine about the same as yesterday at 5.7. Abdomen appears to be distended. The patient feels well. 09/16 Feels well, afebrile, hemoglobin stable, platelets 43,000, sodium 132, renal function slightly better, creatinine 5.3, urine output only 520 mL in 24 hrs, continues to have gross hematuria. Paracentesis today for about 5200 mL of serous fluid, received Albumin 25% 37.5 gm IV. Physical exam Head: Atraumatic, normal inspection. Eyes: normal appearance, no scleral icterus. Neck: full ROM Respiratory: no respiratory distress. Cardiovascular: normal rate and rhythm, S1, S2. GI/Abdominal: distended abdomen, nontender, no guarding. : Pitts catheter with gross hematuria. Extremities: full range of motion, nontender. Neurological: CN II-XII intact, intact motor, intact sensation. Psychiatric: normal mood. Skin: warm, normal color Constitutional Vitals: Vital Signs Temp Pulse Resp BP Pulse Ox 98 F 95 H 16 93/52 100 09/16/21 12:26 09/16/21 12:26 09/16/21 12:26 09/16/21 12:26 09/16/21 12:26 Period Temp Pulse Resp BP Sys/Sotelo Pulse Ox Last 24 Hr 98 F-99.7 F 81-95 - 93-123/39-69 93-100 Intake and Output 09/16/21 09/16/21 09/16/21 05:59 13:59 21:59 Intake Total 60 400 Output Total 135 Balance -75 400 Intake & Output: Intake & Output 09/16/21 09/16/21 09/16/21 05:59 13:59 21:59 Intake Total 60 400 Output Total 135 Balance -75 400 Intake: IV 100 Ampicillin 2 gm In Sodium 100 Chloride 0.9% 100 ml @ 100 mls/ hr IV Q24H [facility] Rx#:[id number] Oral 60 300 Output: Urine Catheter Amount 135 Other: Meal Breakfast Percent of Meal Consumed 75% Urine Appearance Clear Urine Color Tea Colored Urine Odor Normal Stool Size Moderate Stool Color Brown Stool Consistency Watery OBJ DATA Labs CBC & Chem 7: 09/16/21 07:58 09/16/21 07:58 Labs: Abnormal Lab Results 09/16/21 09/16/21 09/15/21 07:58 07:58 14:28 RBC 2.82 L Hgb 9.3 L 9.2 L Hct 29.2 L MCV 103.5 H RDW 19.2 H Plt Count 43 L* MPV 11.4 H Neut % (Auto) 79.5 H Lymph % (Auto) 8.2 L Lymph # (Auto) 0.62 L PT INR Sodium 132 L Carbon Dioxide 20 L BUN 43 H Creatinine 5.3 H* Uric Acid 10.8 H Calcium 7.9 L Phosphorus Total Bilirubin 1.4 H Direct Bilirubin 0.6 H Lactate Dehydrogenase 226 H Total Protein 5.4 L Albumin 2.8 L 09/15/21 09/15/21 09/15/21 05:00 05:00 05:00 RBC 2.64 L Hgb 8.7 L Hct 26.0 L MCV RDW 19.4 H Plt Count 46 L* MPV 11.1 H Neut % (Auto) 78.7 H Lymph % (Auto) 9.2 L Lymph # (Auto) 0.56 L PT 19.5 H INR 1.6 H Sodium 132 L Carbon Dioxide BUN 45 H Creatinine 5.7 H* Uric Acid Calcium 7.4 L Phosphorus Total Bilirubin Direct Bilirubin Lactate Dehydrogenase Total Protein Albumin 09/14/21 09/14/21 09/14/21 16:59 06:12 06:12 RBC 2.97 L 2.96 L Hgb 10.0 L 9.7 L Hct 28.8 L 28.9 L MCV RDW 19.9 H 19.8 H Plt Count 63 L 41 L* MPV 10.8 H 10.7 H Neut % (Auto) 79.9 H 81.2 H Lymph % (Auto) 9.7 L 10.5 L Lymph # (Auto) 0.74 L 0.77 L PT INR Sodium Carbon Dioxide 21 L BUN 38 H Creatinine 5.6 H* Uric Acid 11.3 H Calcium 7.0 L Phosphorus 5.4 H Total Bilirubin 2.0 H Direct Bilirubin 0.6 H Lactate Dehydrogenase Total Protein 5.3 L Albumin 3.1 L 09/14/21 06:12 RBC Hgb Hct MCV RDW Plt Count MPV Neut % (Auto) Lymph % (Auto) Lymph # (Auto) PT 20.5 H INR 1.7 H Sodium Carbon Dioxide BUN Creatinine Uric Acid Calcium Phosphorus Total Bilirubin Direct Bilirubin Lactate Dehydrogenase Total Protein Albumin Meds: Medications Acetaminophen (Acetaminophen 325 Mg Tablet) 650 mg PO Q6HP PRN; Protocol PRN Reason: Per Pain Protocol/Fever > 101 Last Admin: 09/12/21 20:17 Dose: 650 mg Documented by: Albuterol/Ipratropium (Ipratropium/Albuterol 3 Ml Ampul.Neb) 3 ml NEB Q4HP PRN PRN Reason: Shortness Of Breath Atorvastatin Calcium (Atorvastatin 10 Mg Tablet) 10 mg PO HS [facility] Last Admin: 09/15/21 20:31 Dose: 10 mg Documented by: Buspirone HCl (Buspirone 5 Mg Tablet) 2.5 mg PO DAILY [facility] Last Admin: 09/16/21 08:41 Dose: 2.5 mg Documented by: Calcium Carbonate/Glycine (Calcium Carbonate 500 Mg Tab.Chew) 500 mg CHEWED D AILY [facility] Last Admin: 09/16/21 08:40 Dose: 500 mg Documented by: Cefepime HCl (Cefepime 1 Gm Vial) 0.5 gm IV Q24H [facility] Last Admin: 09/16/21 08:42 Dose: 0.5 gm Documented by: Escitalopram Oxalate (Escitalopram 10 Mg Tablet) 10 mg PO QDAY [facility] Last Admin: 09/16/21 08:41 Dose: 10 mg Documented by: Folic Acid (Folic Acid 1 Mg Tablet) 1 mg PO DAILY [facility] Last Admin: 09/16/21 08:40 Dose: 1 mg Documented by: Potassium Chloride 40 meq/ (Dextrose) 520 mls @ 130 mls/hr IV UD PRN PRN Reason: Potassium < 3 Magnesium Sulfate (Magnesium Sulfate) 2 gm in 50 mls @ 50 mls/hr IV UD PRN PRN Reason: Magnesium </= 1.6 Last Infusion: 09/14/21 20:56 Dose: Infused Documented by: Ampicillin Sodium 2 gm/ Sodium (Chloride) 100 mls @ 100 mls/hr IV Q24H [facility] Last Infusion: 09/16/21 10:17 Dose: Infused Documented by: Albumin Human (Buminate) 37.5 gm in 150 mls @ 150 mls/hr IV ONCE ONE Stop: 09/16/21 15:52 Loperamide HCl (Loperamide 2 Mg Capsule) 2 mg PO PRN PRN PRN Reason: Diarrhea Last Admin: 09/15/21 20:51 Dose: 2 mg Documented by: Melatonin (Melatonin 3 Mg Tablet) 3 mg PO QHS [facility] Last Admin: 09/15/21 20:31 Dose: 3 mg Documented by: Metoprolol Tartrate (Metoprolol Tartrate 5 Mg/5 Ml Vial) 5 mg IV Q2HP PRN PRN Reason: Tachyarrhythmias HR>110 Ondansetron HCl (Ondansetron 4 Mg/2 Ml Vial) 4 mg IV Q4HP PRN PRN Reason: Nausea And Vomiting Polyethylene Glycol (Polyethylene Glycol 3350 17 Gm Packet) 17 gm PO DAILYP PRN PRN Reason: Constipation Potassium Chloride (Potassium Chloride 20 Meq Tablet) 40 meq PO UD PRN PRN Reason: Potssium is 3-3.5 Last Admin: 09/15/21 18:39 Dose: 40 meq Documented by: Potassium Chloride (Potassium Chloride 20 Meq Tablet) 40 meq PO UD PRN PRN Reason: Potassium < 3 Fluticasone/Salmeterol (Fluticasone/Salmeterol 50/100 Inhaler #14) 1 puff INH DAILY [facility] Last Admin: 09/16/21 08:49 Dose: 1 puff Documented by: Senna (Sennosides 1 Tablet) 2 tab PO DAILYP PRN PRN Reason: Constipation Sodium Bicarbonate (Sodium Bicarbonate 650 Mg Tablet) 650 mg PO BID [facility] Last Admin: 09/16/21 08:41 Dose: 650 mg Documented by: Sodium Chloride (0.9 % Sodium Chloride 10 Ml Syringe) 10 ml IV Q8 [facility] Last Admin: 09/16/21 05:18 Dose: 10 ml Documented by: A/P Narrative A/P Narrative: A: *Severe sepsis: 2/2 pyelonephritis, resolved *Hypotension: 2/2 above and resolved in the ED with IVF *Left pyelonephritis (Aerococcus/MDRO E.coli/Enterococcus): Has a left ureteral stent will be removed by Dr. Aparicio *Left obstructing ureteral stent & Nephrolithiasis: s/p stent/stone removal w/stent replacement (09/12) *Gross Hematuria: 2/2 above compounded by thrombocytopenia/coagulopathy *Anemia, acute blood loss on chronic: s/p procedure -2prbc (09/13) *RAMSES on CKD III: Follows Dr. Angeles -no improvement yet s/p stent placement *Met acidosis: 2/2 above *Thrombocytopenia, acute on chronic: *Liver cirrhosis: CT imaging read as cirrhosis with ascites. no portal vein thrombosis on u/s *Ascites --paracentesis 09/16 for 5,200 mL of serous fluid *Coagulopathy: 2/2 above *COPD(no home O2): *Depression/anxiety: *Crohn's: Follows with Dr. Jacobo P: -Albumin IV for large volume paracentesis. -Cefepime and Ampicillin for polymicrobial pyelonephritis. -defer IVF per nephrology -Dr. Lane and Alessandra following -monitor H&H, transfuse as indicated. -monitor platelets and INR. -hold home BB for low BP, restart when able -Follow ascites cells count, albumin, protein, cytology. -Paracentesis as needed. -hold ASA for hematuria -cont home psych/IH's -pt/ot -f/u with Donnell regarding cirrhosis findings on CT -ppx: SCD DNR Time Spent With Patient Time: Total time spent is greater than 50% in coordination of care (as documented) at patient's floor/unit and/or counseling patient:
[2021-09-16] MEDS ORDERED: 0.9 % SODIUM CHLORIDE 1,000 ML IV ONE (18:01)
[2021-09-16] MEDS: POTASSIUM CHLORIDE 20 MEQ TABLET PO PRN (18:30)
[2021-09-16] MEDS: MELATONIN 3 MG TABLET PO SCH (20:58)
[2021-09-16] MEDS: ATORVASTATIN 10 MG TABLET PO SCH (20:58)
[2021-09-16] MEDS: LOPERAMIDE 2 MG CAPSULE PO PRN (23:57)
[2021-09-17] MEDS: 0.9 % SODIUM CHLORIDE 10 ML SYRINGE IV SCH ×4 (03:55→20:13)
[2021-09-17] MEDS: busPIRone 5 MG TABLET PO SCH (09:03)
[2021-09-17] MEDS: FOLIC ACID 1 MG TABLET PO SCH (09:03)
[2021-09-17] MEDS: CALCIUM CARBONATE 500 MG TAB.CHEW CHEWED SCH (09:03)
[2021-09-17] MEDS: SODIUM BICARBONATE 650 MG TABLET PO SCH ×2 (09:03→20:12)
[2021-09-17] MEDS: ESCITALOPRAM 10 MG TABLET PO SCH (09:03)
[2021-09-17] MEDS: AMPICILLIN SODIUM 2 GM in 0.9 % SODIUM CHLORIDE 100 ML IV SCH (09:08)
[2021-09-17] MEDS: CEFEPIME 1 GM VIAL IV SCH (09:13)
[2021-09-17] MEDS: FLUTICASONE/SALMETEROL 50/100 INHALER #14 INH SCH (09:25)
[2021-09-17 09:37] LABS: Mesothelial,Peritoneal Fluid 23 %; Monocyte,Peritoneal Fluid 28 %; Neutrophils,Peritoneal Fluid 33 %; RBC,Peritoneal Fluid <50,000 /cumm
[2021-09-17 10:13] LABS: Basophils # (Auto) 0.04 K/mcL (0.00-0.30); Basophils % (Auto) 0.4 % (0.0-2.0); Eosinophils # (Auto) 0.35 K/mcL (0.00-0.70); Eosinophils % (Auto) 3.6 % (0.0-7.0); Hematocrit 30.8 % (34.1-44.9); Hemoglobin 9.9 g/dL (11.2-15.7); INR 1.5 (0.9-1.1); Lymphocytes # (Auto) 1.17 K/mcL (1.50-4.80); Lymphocytes % (Auto) 12.2 % (15.5-49.0); Mean Cell Volume 102.3 fL (80.0-100.0); Mean Corpuscular HGB Conc 32.1 g/dL (31.0-36.0); Mean Platelet Volume 11.8 fL (7.4-10.4); Monocytes # (Auto) 0.91 K/mcL (0.10-0.90); Monocytes % (Auto) 9.5 % (1.0-12.0); Neutrophils % (Auto) 74.3 % (38.0-78.0); Platelet Count 59 K/mcL (140-440); Prothrombin Time 18.5 sec (11.9-14.5); RBC 3.01 M/mcL (3.59-5.38); Red Cell Distribution Width 19.5 % (11.5-14.5); WBC 9.6 K/mcL (4.5-11.0)
[2021-09-17 10:22] LABS: ALT/SGPT 10 U/L (<40); AST/SGOT 18 U/L (<32); Albumin 2.9 gm/dL (3.2-5.2); Albumin/Globulin Ratio 1.1 (1.0-2.3); Alkaline Phosphatase 49 U/L (39-117); Bilirubin,Direct 0.5 mg/dL (<0.3); Bilirubin,Total 1.2 mg/dL (0.1-1.0); Blood Urea Nitrogen 42 mg/dL (8-23); Calcium 8.3 mg/dL (8.6-10.4); Carbon Dioxide 19 mmol/L (22-30); Chloride 98 mmol/L (96-108); Globulin 2.7 gm/dL (2.2-3.7); Glomerular Filtration Rate 8; Glucose 108 mg/dL (70-105); Lactate Dehydrogenase 210 U/L (135-225); Phosphorous 3.7 mg/dL (2.5-4.5); Triglycerides 49 mg/dL (<150); Uric Acid 10.8 mg/dL (2.5-8.0)
[2021-09-17] MEDS: POTASSIUM CHLORIDE 20 MEQ TABLET PO PRN (10:39)
--- NOTE | 2021-09-17 11:28 | Nephrology Progress Note ---
SUBJECTIVE Subjective Patient information: Note initiated : 09/17/21 at 11:26 am Patient: Rani Toro 81 y/o F admitted on 09/11/21 for Dizzy. Chief Complaint: Weakness Principal diagnosis: Retained left ureteral stent and renal failure Pertinent ROS: Weakness Edema Pitts catheter with clearing urine No shortness of breath No nausea Constitutional Vitals: Vital Signs Temp Pulse Resp BP Pulse Ox 98.2 F 97 H 17 90/58 97 09/17/21 08:01 09/17/21 10:12 09/17/21 10:12 09/17/21 10:12 09/17/21 10:12 Period Temp Pulse Resp BP Sys/Sotelo Pulse Ox Last 24 Hr 97.2 F-99.1 F 79-97 14-24 90-123/43-65 94-100 Intake and Output 09/16/21 09/17/21 09/17/21 21:59 05:59 13:59 Intake Total 590 1120 460 Output Total 5515 750 Balance -4925 370 460 Weight 162 lb 11.2 oz Intake & Output: Intake & Output 09/16/21 09/17/21 09/17/21 21:59 05:59 13:59 Intake Total 590 1120 460 Output Total 5515 750 Balance -4925 370 460 Weight 162 lb 11.2 oz Intake: Nourishment/Supplement quantity 240 120 (ml) IV 150 1000 100 Sodium Chloride 0.9% 1,000 ml @ 1000 250 mls/hr IV ONCE ONE Rx#: [id number] Ampicillin 2 gm In Sodium 100 Chloride 0.9% 100 ml @ 100 mls/ hr IV Q24H [facility] Rx#:[id number] Oral 200 360 Output: Urine Catheter Amount 315 150 Stool 600 Para\Thoracentesis 5200 Other: Meal Nourishment/Supplement Nourishment/Supplement Breakfast Percent of Meal Consumed 100% Feeding Ability Independent Nourishment/Supplement name Ensure Ensure Urine Appearance Cloudy Cloudy Uretheral (Pitts) Cloudy Cloudy Urine Color Tea Colored Tea Colored Uretheral (Pitts) Tea Colored Dark Yellow Urine Odor Normal Stool Size Small Stool Color Brown Stool Consistency Loose # of times incontinent of 1 Bowels General appearance: cooperative and no acute distress Head Head exam: Present normal inspection Eye Eye exam: Present normal appearance ENT ENT exam: Present mucous membranes moist Respiratory Respiratory exam: Absent respiratory distress Cardiovascular Cardiovascular exam: Present normal rate and rhythm GI/Abdominal GI/Abdominal exam: Present soft; Absent tenderness Extremities Exam Extremities exam: Absent joint swelling or pedal edema Neurological Exam Neurological exam: Present alert and oriented X3 Psychiatric Psychiatric exam: Present normal affect and normal mood Skin Skin exam: Present warm; Absent rash A/P Assessment and plan (1) Acute renal failure with acute tubular necrosis superimposed on stage 3a chronic kidney disease: Assessment and plan: Rani Toro is an 81-year-old female with a history of Crohn's disease, atrial fibrillation, hypertension, chronic obstructive pulmonary disease, chronic kidney disease stage 3-4, chronic thrombocytopenia and anemia, a long history of kidney stones, a left ureteral stent placed in October [address] [facility] ED for weakness. In ED, she was hypotensive, but responded to IV fluids. Her work-up was significant for acute kidney injury on chronic kidney disease. CT Abdomen and Pelvis without contrast on 09/10/21 reported abnormal ascending colon with pneumatosis and dilatation. There is infiltration of pericolonic fat. Etiology is not certain. Malignancy is possible. Ischemic colitis is possible although distribution is atypical. Cirrhosis. Moderate ascites. Bilateral renal calculi. There is a left ureteral stent present. There is a stone adjacent to the distal portion of the stent. Gas within the left renal collecting system. There is no intravesical gas. Emphysematous pyelitis is possible. She was diagnosed with sepsis, admitted and started on Vancomycin and Zosyn. Baseline serum creatinine: 0.9-1.4 (eGFR 35-60) in 2020, 2.1 (eGFR 21) on 08/15/21. Nephrology consultation was requested for acute kidney injury. Acute kidney injury, likely acute tubular necrosis and/orobstructive nephropathyassociated with emphysematous pyelonephritis, nonfunctional right kidney on chronic kidney disease stage 3-4 with initial metabolic acidosis, present on arrival. There is no recent history of IV contrast administration or NSAID use. Intravascular volume depletion treated with adequate IV fluid resuscitation. Acute emphysematous pyelonephritis with Aerococcus urinae,Escherichia coli and Enterococcus species (by urine culture from 09/12/21). She was started on Vancomycin and Zosyn then changed to Cefepime. Chronic thrombocytopenia, worse, likely associated with cirrhosis of liver and sepsis. Acute on chronic anemia. Previous workup: NM Renal Scan on 08/31/21: Right kidney significant delayed excretion of radiotracer or obstruction. Workup: Renal US on 09/12/21: Nonobstructing renal calculi bilaterally.Mild left hydronephrosis.Elevated maximum systolic flow velocity in the proximal left renalartery. Left renal artery stenosis is probably about 50% diameter.Elevated resistive indices bilaterally. Urinalysis on 09/10/21: Green, Cloudy, pH 6.0, SG 1.020, protein >300, blood large, leukocyte esterase large, urine WBC >182, urine culture pending. CT Abdomen and Pelvis without contrast on 09/10/21: Abnormal ascending colon with pneumatosis and dilatation. There is infiltration of pericolonic fat. Etiology is not certain. Malignancy is possible. Ischemic colitis is possible although distribution is atypical. Cirrhosis. Moderate ascites. Bilateral renal calculi. There is a left ureteral stent present. There is a stone adjacent to the distal portion of the stent. Gas within the left renal collecting system. There is no intravesical gas. Emphysematous pyelitis is possible. Treatment: Sodium Bicarbonate 650 mg twice daily for metabolic acidosis. Cystoscopy, difficult removal of retained, encrusted, left ureteral stent. Left retrograde pyelogram, left ureteroscopy, left holmium laser lithotripsy, left ureteral stone basketing, and left renal stent placement on 09/12/21. She needs further cleaning. Progress: Serum creatinine decreased from 5.3 to 4.8 in the past 24 hours. Baseline serum creatinine: 0.9-1.4 (eGFR 35-60) in 2020, 2.1 (eGFR 21) on 08/15/21. Urine output: 520 ml reported in the past 24 hours. Metabolic acidosis. Fluid overload with lower extremity edema. I/O: + 8 L Weight + 12 lb No uremic symptoms. Recommendations/Plan: Anticipate no acute hemodialysis need. Outpatient nephrology follow up with Dr. Angeles. Status: Acute (2) Metabolic acidosis: Status: Acute Time Spent With Patient Time: Total time spent is greater than 50% in coordination of care (as documented) at patient's floor/unit and/or counseling patient:
--- NOTE | 2021-09-17 15:22 | Internal Med Progress Note ---
SUBJECTIVE Subjective Patient information: Note initiated : 09/17/21 at 3:07 pm Service Date, if different from initiated Date: [] Patient: Rani Toro a 81 y/o F admitted on 09/11/21 for Dizzy. Chief Complaint: [] Principal diagnosis: Retained left ureteral stent and renal failure Interval history: History of present illness: Ms. Toro is a 81 year old F Presents to the ED with increasing weakness and lightheadedness. Patient had hard time walking to the bathroom without having to sit down from feeling lightheadedness. Denies fever chills nausea vomiting. Denies chest pain or stomach pain. Abnormal bowel function from Crohn's. Has a history of chronic kidney disease and follows with Dr. Angeles. Chronic thrombocytopenia and anemia. Old notes report a single episode of atrial fibrillation but none since; and confirmed by pt. She has a left kidney stents post removed by Dr. Aparicio on Saturday. On evaluation the ED she was hypotensive initially which responded to IV fluid. She is work-up but found to have acute acute kidney injury on chronic kidney disease. Wound to have pyelonephritis on the left. Case discussed with Dr. Karthik Aparicio. CT abdominal also read as pneumatosis in the colon and case discussed with Dr. Tate who will see the patient in the morning but did not have any recomm endations at this point. 09/11 Doing better. Not getting lightheaded like she was before. Poor sleep. 09/12 Patient doing well. Scheduled to get stent out today. IV fluids per nephrology. Chemistry pending. 09/13 Patient had ureteral stent removed and replaced yesterday and stones removed. Hemoglobin below 7 today and will transfuse. Patient feels well overall. Renal function has not improved. 09/14 Gross hematuria. Patient feels well. No overnight event or new complaints. Received blood transfusion yesterday. Given the active bleeding and the platelets down to 41k will transfuse plate lets. FFP given coagulopathy. Awaiting renal function panel. Added Ampicillin for enterococcus that grew in urine culture. 09/15 Continues to have gross hematuria, making urine. Platelets 46, INR 1.8. creatinine about the same as yesterday at 5.7. Abdomen appears to be distended. The patient feels well. 09/16 Feels well, afebrile, hemoglobin stable, platelets 43,000, sodium 132, renal function slightly better, creatinine 5.3, urine output only 520 mL in 24 hrs, continues to have gross hematuria. Paracentesis today for about 5200 mL of serous fluid, received Albumin 25% 37.5 gm IV. 09/17 Peritoneal fluid workup consistent with ascites secondary to portal hypertension due to liver cirrhosis, SAA.1, fluid protein 1.2. Renal function improving, creatinine 4.8 today. Gross hematuria resolved. Discussed antibiotic management of polymicrobial UTI with multidrug resistant bacteria with ID at [facility] in [place], Dr. Hamm. Dr. Hamm did not feel there was a good oral antibiotic options given the antibiotic resistance patterns in the urine cultures, recommended treating with IV antibiotics until the remaining ureteral stones and ureteral stent have been removed. PICC line placement ordered. Anticipate discharge to SNF for IV antibiotics and probably rehab. Physical exam Head: Atraumatic, normal inspection. Eyes: normal appearance, no scleral icterus. Neck: full ROM Respiratory: no respiratory distress. Cardiovascular: normal rate and rhythm, S1, S2. GI/Abdominal: distended abdomen, nontender, no guarding. : Pitts catheter with dark urine. Extremities: full range of motion, nontender. Neurological: CN II-XII intact, intact motor, intact sensation. Psychiatric: normal mood. Skin: warm, normal color Constitutional Vitals: Vital Signs Temp Pulse Resp BP Pulse Ox 97.6 F 96 H 16 92/62 98 09/17/21 12:01 09/17/21 12:01 09/17/21 12:01 09/17/21 12:01 09/17/21 12:01 Period Temp Pulse Resp BP Sys/Sotelo Pulse Ox Last 24 Hr 97.2 F-99.1 F 79-97 14-24 90-112/43-65 94-99 Intake and Output 09/17/21 09/17/21 09/17/21 05:59 13:59 21:59 Intake Total 1120 935 Output Total 750 Balance 370 935 Intake & Output: Intake & Output 09/17/21 09/17/21 09/17/21 05:59 13:59 21:59 Intake Total 1120 935 Output Total 750 Balance 370 935 Intake: Nourishment/Supplement quantity 120 (ml) IV 1000 100 Sodium Chloride 0.9% 1,000 ml @ 1000 250 mls/hr IV ONCE ONE Rx#: [id number] Ampicillin 2 gm In Sodium 100 Chloride 0.9% 100 ml @ 100 mls/ hr IV Q24H [facility] Rx#:[id number] Oral 835 Output: Urine Catheter Amount 150 Stool 600 Other: Meal Nourishment/Supplement Lunch Percent of Meal Consumed 100% Feeding Ability Independent Nourishment/Supplement name Ensure Urine Appearance Cloudy Uretheral (Pitts) Cloudy Urine Color Tea Colored Uretheral (Pitts) Dark Yellow Stool Size Small Stool Color Brown Stool Consistency Loose # of times incontinent of 1 Bowels OBJ DATA Labs CBC & Chem 7: 09/17/21 09:35 09/17/21 09:35 Labs: Abnormal Lab Results 09/17/21 09/17/21 09/17/21 09:35 09:35 09:35 RBC 3.01 L Hgb 9.9 L Hct 30.8 L MCV 102.3 H RDW 19.5 H Plt Count 59 L MPV 11.8 H Neut % (Auto) Lymph % (Auto) 12.2 L Lymph # (Auto) 1.17 L Hendry # (Auto) 0.91 H PT 18.5 H INR 1.5 H Sodium Carbon Dioxide 19 L BUN 42 H Creatinine 4.8 H Glucose 108 H Uric Acid 10.8 H Calcium 8.3 L Total Bilirubin 1.2 H Direct Bilirubin 0.5 H Lactate Dehydrogenase Total Protein 5.6 L Albumin 2.9 L 09/16/21 09/16/21 09/15/21 07:58 07:58 14:28 RBC 2.82 L Hgb 9.3 L 9.2 L Hct 29.2 L MCV 103.5 H RDW 19.2 H Plt Count 43 L* MPV 11.4 H Neut % (Auto) 79.5 H Lymph % (Auto) 8.2 L Lymph # (Auto) 0.62 L Hendry # (Auto) PT INR Sodium 132 L Carbon Dioxide 20 L BUN 43 H Creatinine 5.3 H* Glucose Uric Acid 10.8 H Calcium 7.9 L Total Bilirubin 1.4 H Direct Bilirubin 0.6 H Lactate Dehydrogenase 226 H Total Protein 5.4 L Albumin 2.8 L 09/15/21 09/15/21 09/15/21 05:00 05:00 05:00 RBC 2.64 L Hgb 8.7 L Hct 26.0 L MCV RDW 19.4 H Plt Count 46 L* MPV 11.1 H Neut % (Auto) 78.7 H Lymph % (Auto) 9.2 L Lymph # (Auto) 0.56 L Hendry # (Auto) PT 19.5 H INR 1.6 H Sodium 132 L Carbon Dioxide BUN 45 H Creatinine 5.7 H* Glucose Uric Acid Calcium 7.4 L Total Bilirubin Direct Bilirubin Lactate Dehydrogenase Total Protein Albumin 09/14/21 16:59 RBC 2.97 L Hgb 10.0 L Hct 28.8 L MCV RDW 19.9 H Plt Count 63 L MPV 10.8 H Neut % (Auto) 79.9 H Lymph % (Auto) 9.7 L Lymph # (Auto) 0.74 L Hendry # (Auto) PT INR Sodium Carbon Dioxide BUN Creatinine Glucose Uric Acid Calcium Total Bilirubin Direct Bilirubin Lactate Dehydrogenase Total Protein Albumin Meds: Medications Acetaminophen (Acetaminophen 325 Mg Tablet) 650 mg PO Q6HP PRN; Protocol PRN Reason: Per Pain Protocol/Fever > 101 Last Admin: 09/12/21 20:17 Dose: 650 mg Documented by: Albuterol/Ipratropium (Ipratropium/Albuterol 3 Ml Ampul.Neb) 3 ml NEB Q4HP PRN PRN Reason: Shortness Of Breath Atorvastatin Calcium (Atorvastatin 10 Mg Tablet) 10 mg PO [facility] Last Admin: 09/16/21 20:58 Dose: 10 mg Documented by: Buspirone HCl (Buspirone 5 Mg Tablet) 2.5 mg PO DAILY [facility] Last Admin: 09/17/21 09:03 Dose: 2.5 mg Documented by: Calcium Carbonate/Glycine (Calcium Carbonate 500 Mg Tab.Chew) 500 mg CHEWED DAILY [facility] Last Admin: 09/17/21 09:03 Dose: 500 mg Documented by: Cefepime HCl (Cefepime 1 Gm Vial) 0.5 gm IV Q24H [facility] Last Admin: 09/17/21 09:13 Dose: 0.5 gm Documented by: Escitalopram Oxalate (Escitalopram 10 Mg Tablet) 10 mg PO QDAY [facility] Last Admin: 09/17/21 09:03 Dose: 10 mg Documented by: Folic Acid (Folic Acid 1 Mg Tablet) 1 mg PO DAILY [facility] Last Admin: 09/17/21 09:03 Dose: 1 mg Documented by: Potassium Chloride 40 meq/ (Dextrose) 520 mls @ 130 mls/hr IV UD PRN PRN Reason: Potassium < 3 Magnesium Sulfate (Magnesium Sulfate) 2 gm in 50 mls @ 50 mls/hr IV UD PRN PRN Reason: Magnesium </= 1.6 Last Infusion: 09/14/21 20:56 Dose: Infused Documented by: Ampicillin Sodium 2 gm/ Sodium (Chloride) 100 mls @ 100 mls/hr IV Q24H [facility] Last Infusion: 09/17/21 10:08 Dose: Infused Documented by: Loperamide HCl (Loperamide 2 Mg Capsule) 2 mg PO PRN PRN PRN Reason: Diarrhea Last Admin: 09/16/21 23:57 Dose: 2 mg Documented by: Melatonin (Melatonin 3 Mg Tablet) 3 mg PO QHS [facility] Last Admin: 09/16/21 20:58 Dose: 3 mg Documented by: Metoprolol Tartrate (Metoprolol Tartrate 5 Mg/5 Ml Vial) 5 mg IV Q2HP PRN PRN Reason: Tachyarrhythmias HR>110 Ondansetron HCl (Ondansetron 4 Mg/2 Ml Vial) 4 mg IV Q4HP PRN PRN Reason: Nausea And Vomiting Polyethylene Glycol (Polyethylene Glycol 3350 17 Gm Packet) 17 gm PO DAILYP PRN PRN Reason: Constipation Potassium Chloride (Potassium Chloride 20 Meq Tablet) 40 meq PO UD PRN PRN Reason: Potssium is 3-3.5 Last Admin: 09/17/21 10:39 Dose: 40 meq Documented by: Potassium Chloride (Potassium Chloride 20 Meq Tablet) 40 meq PO UD PRN PRN Reason: Potassium < 3 Fluticasone/Salmeterol (Fluticasone/Salmeterol 50/100 Inhaler #14) 1 puff INH DAILY [facility] Last Admin: 09/17/21 09:25 Dose: 1 puff Documented by: Senna (Sennosides 1 Tablet) 2 tab PO DAILYP PRN PRN Reason: Constipation Sodium Bicarbonate (Sodium Bicarbonate 650 Mg Tablet) 650 mg PO BID [facility] Last Admin: 09/17/21 09:03 Dose: 650 mg Documented by: Sodium Chloride (0.9 % Sodium Chloride 10 Ml Syringe) 10 ml IV Q8 [facility] Last Admin: 09/17/21 13:43 Dose: 10 ml Documented by: A/P Narrative A/P Narrative: A: *Resolved severe sepsis: 2/2 pyelonephritis *Left pyelonephritis (Aerococcus/MDRO E.coli/Enterococcus): Has a left ureteral stent will be removed by Dr. Aparicio *Left obstructing ureteral stent & nephrolithiasis: s/p stent/stone removal w/stent replacement (09/12) -remaining left and right renal stones that will need intervention in the near future *Resolving hematuria: 2/2 above compounded by thrombocytopenia/coagulopathy *Anemia, acute blood loss on chronic: s/p procedure -2prbc (09/13) -H/H trend now stable *RAMSES on CKD III: Follows Dr. Angeles -improving renal function *Met acidosis: 2/2 above *Thrombocytopenia, acute on chronic: *Decompensated liver cirrhosis: CT imaging read as cirrhosis with ascites. no portal vein thrombosis on u/s -paracentesis on 09/16 for 5,200 mL of clear fluid -SAA.1, fluid protein 1.2 *Coagulopathy: 2/2 above *COPD(no home O2): *Depression/anxiety: *Crohn's disease: Follows with Dr. Jacobo P: -Renally dosed Cefepime and Ampicillin for polymicrobial pyelonephritis. -PICC placement for outpatient IV antibiotics-per ID there no good oral abx options in this case. -Dr. Tavarez following -monitor H&H, transfuse as indicated. -monitor platelets and INR. -hold home BB for low BP, restart when able -Follow ascites cytology. -Paracentesis as needed. -hold ASA for hematuria -cont home psych/IH's -pt/ot -f/u with [facility] regarding cirrhosis findings on CT -ppx: SCD for now -disposition: possibly SNF, continue IV antibiotics via PICC until ureteral stent and remaining stones removed. -code status: DNR/DNI Time Spent With Patient Time: Total time spent is greater than 50% in coordination of care (as documented) at patient's floor/unit and/or counseling patient:
[2021-09-17] MEDS: MELATONIN 3 MG TABLET PO SCH (20:12)
[2021-09-17] MEDS: ATORVASTATIN 10 MG TABLET PO SCH (20:12)
[2021-09-18] MEDS: 0.9 % SODIUM CHLORIDE 10 ML SYRINGE IV SCH ×3 (05:56→20:59)
[2021-09-18 07:30] LABS: Basophils # (Auto) 0.02 K/mcL (0.00-0.30); Basophils % (Auto) 0.5 % (0.0-2.0); Eosinophils # (Auto) 0.15 K/mcL (0.00-0.70); Eosinophils % (Auto) 3.4 % (0.0-7.0); Hematocrit 22.5 % (34.1-44.9); Lymphocytes # (Auto) 0.79 K/mcL (1.50-4.80); Lymphocytes % (Auto) 17.9 % (15.5-49.0); Mean Cell Volume 108.2 fL (80.0-100.0); Mean Corpuscular HGB Conc 31.1 g/dL (31.0-36.0); Mean Platelet Volume 10.2 fL (7.4-10.4); Neutrophils % (Auto) 69.2 % (38.0-78.0); Platelet Count 36 K/mcL (140-440); RBC 2.08 M/mcL (3.59-5.38); Red Cell Distribution Width 18.8 % (11.5-14.5); WBC 4.4 K/mcL (4.5-11.0)
[2021-09-18 07:44] LABS: ALT/SGPT 8 U/L (<40); AST/SGOT 15 U/L (<32); Albumin 2.2 gm/dL (3.2-5.2); Alkaline Phosphatase 40 U/L (39-117); Bilirubin,Direct 0.5 mg/dL (<0.3); Bilirubin,Total 0.9 mg/dL (0.1-1.0); Blood Urea Nitrogen 36 mg/dL (8-23); Calcium 6.8 mg/dL (8.6-10.4); Carbon Dioxide 18 mmol/L (22-30); Chloride 106 mmol/L (96-108); Globulin 2.1 gm/dL (2.2-3.7); Glomerular Filtration Rate 10; Glucose 64 mg/dL (70-105); Lactate Dehydrogenase 177 U/L (135-225); Triglycerides 44 mg/dL (<150); Uric Acid 8.9 mg/dL (2.5-8.0)
[2021-09-18] MEDS ORDERED: POTASSIUM CHLORIDE 20 MEQ TABLET PO ONE (08:29)
--- NOTE | 2021-09-18 08:38 | Nephrology Progress Note ---
SUBJECTIVE Subjective Patient information: Note initiated : 09/18/21 at 8:36 am Patient: Rani Toro 81 y/o F admitted on 09/11/21 for Dizzy. Chief Complaint: Weakness Principal diagnosis: Retained left ureteral stent and renal failure Pertinent ROS: Weakness Pitts catheter with clear urine Edema No shortness of breath No nausea Constitutional Vitals: Vital Signs Temp Pulse Resp BP Pulse Ox 97.8 F 91 H 25 H 90/46 98 09/18/21 08:09 09/18/21 08:09 09/18/21 08:15 09/18/21 08:09 09/18/21 08:09 Period Temp Pulse Resp BP Sys/Sotelo Pulse Ox Last 24 Hr 97.6 F-97.8 F 74-98 13-29 90-117/45-95 95-100 Intake and Output 09/17/21 09/18/21 09/18/21 21:59 05:59 13:59 Output Total 255 170 Balance -255 -170 Weight 166 lb 9.6 oz Intake & Output: Intake & Output 09/17/21 09/18/21 09/18/21 21:59 05:59 13:59 Output Total 255 170 Balance -255 -170 Weight 166 lb 9.6 oz Output: Urine Catheter Amount 230 170 Void Amount 25 Other: Urine Appearance Clear Cloudy Uretheral (Pitts) Clear Clear Hematuria Hematuria Urine Color Dark Yellow Light Gabrielle [place] Uretheral (Pitts) Dark Yellow Dark Yellow [place] # Bowel Movements 0 General appearance: cooperative and no acute distress Head Head exam: Present normal inspection Eye Eye exam: Present normal appearance ENT ENT exam: Present mucous membranes moist Respiratory Respiratory exam: Absent respiratory distress Cardiovascular Cardiovascular exam: Present normal rate and rhythm GI/Abdominal GI/Abdominal exam: Present soft; Absent tenderness Extremities Exam Extremities exam: Absent joint swelling or pedal edema Neurological Exam Neurological exam: Present alert and oriented X3 Psychiatric Psychiatric exam: Present normal affect and normal mood Skin Skin exam: Present warm; Absent rash A/P Assessment and plan (1) Acute renal failure with acute tubular necrosis superimposed on stage 3a chronic kidney disease: Assessment and plan: Rani Toro is an 81-year-old female with a history of Crohn's disease, atrial fibrillation, hypertension, chronic obstructive pulmonary disease, chronic kidney disease stage 3-4, chronic thrombocytopenia and anemia, a long history of kidney stones, a left ureteral stent placed in October 2020 presented to [facility] ED for weakness. In ED, she was hypotensive, but responded to IV fluids. Her work-up was significant for acute kidney injury on chronic kidney disease. CT Abdomen and Pelvis without contrast on 09/10/21 reported abnormal ascending colon with pneumatosis and dilatation. There is infiltration of pericolonic fat. Etiology is not certain. Malignancy is possible. Ischemic colitis is possible although distribution is atypical. Cirrhosis. Moderate ascites. Bilateral renal calculi. There is a left ureteral stent present. There is a stone adjacent to the distal portion of the stent. Gas within the left renal collecting system. There is no intravesical gas. Emphysematous pyelitis is possible. She was diagnosed with sepsis, admitted and started on Vancomycin and Zosyn. Baseline serum creatinine: 0.9-1.4 (eGFR 35-60) in 2020, 2.1 (eGFR 21) on 08/15/21. Nephrology consultation was requested for acute kidney injury. Acute kidney injury, likely acute tubular necrosis and/orobstructive nephropathyassociated with emphysematous pyelonephritis, nonfunctional right kidney on chronic kidney disease stage 3-4 with initial metabolic acidosis, present on arrival. There is no recent history of IV contrast administration or NSAID use. Intravascular volume depletion treated with adequate IV fluid resuscitation. Acute emphysematous pyelonephritis with Aerococcus urinae,Escherichia coli and Enterococcus species (by urine culture from 09/12/21). She was started on Vancomycin and Zosyn then changed to Cefepime. Chronic thrombocytopenia, worse, likely associated with cirrhosis of liver and sepsis. Acute on chronic anemia. Previous workup: NM Renal Scan on 08/31/21: Right kidney significant delayed excretion of radiotracer or obstruction. Workup: Renal US on 09/12/21: Nonobstructing renal calculi bilaterally.Mild left hydronephrosis.Elevated maximum systolic flow velocity in the proximal left renalartery. Left renal artery stenosis is probably about 50% diameter.Elevated resistive indices bilaterally. Urinalysis on 09/10/21: Green, Cloudy, pH 6.0, SG 1.020, protein >300, blood large, leukocyte esterase large, urine WBC >182, urine culture pending. CT Abdomen and Pelvis without contrast on 09/10/21: Abnormal ascending colon with pneumatosis and dilatation. There is infiltration of pericolonic fat. Etiology is not certain. Malignancy is possible. Ischemic colitis is possible although distribution is atypical. Cirrhosis. Moderate ascites. Bilateral renal calculi. There is a left ureteral stent present. There is a stone adjacent to the distal portion of the stent. Gas within the left renal collecting system. There is no intravesical gas. Emphysematous pyelitis is possible. Treatment: Sodium Bicarbonate 650 mg twice daily for metabolic acidosis. Cystoscopy, difficult removal of retained, encrusted, left ureteral stent. Left retrograde pyelogram, left ureteroscopy, left holmium laser lithotripsy, left ureteral stone basketing, and left renal stent placement on 09/12/21. She needs further cleaning. Progress: Serum creatinine decreased from 4.8 to 3.8 in the past 24 hours. Baseline serum creatinine: 0.9-1.4 (eGFR 35-60) in 2020, 2.1 (eGFR 21) on 08/15/21. Urine output: 465 ml reported in the past 24 hours. Metabolic acidosis. Fluid overload with lower extremity edema. I/O: + 8.1 L Weight + 16 lb No uremic symptoms. Recommendations/Plan: Anticipate no acute hemodialysis need. Urology follow up for further plan. Outpatient nephrology follow up with Dr. Angeles. Status: Acute (2) Metabolic acidosis: Status: Acute Time Spent With Patient Time: Total time spent is greater than 50% in coordination of care (as documented) at patient's floor/unit and/or counseling patient:
[2021-09-18] MEDS: CALCIUM CARBONATE 500 MG TAB.CHEW CHEWED SCH (09:10)
[2021-09-18] MEDS: SODIUM BICARBONATE 650 MG TABLET PO SCH ×2 (09:10→20:59)
[2021-09-18] MEDS: FOLIC ACID 1 MG TABLET PO SCH (09:10)
[2021-09-18] MEDS: CEFEPIME 1 GM VIAL IV SCH (09:10)
[2021-09-18] MEDS: busPIRone 5 MG TABLET PO SCH (09:10)
[2021-09-18] MEDS: ESCITALOPRAM 10 MG TABLET PO SCH (09:10)
[2021-09-18] MEDS: FLUTICASONE/SALMETEROL 50/100 INHALER #14 INH SCH (09:11)
[2021-09-18] MEDS: AMPICILLIN SODIUM 2 GM in 0.9 % SODIUM CHLORIDE 100 ML IV SCH (09:15)
[2021-09-18 09:16] LABS: Basophils # (Auto) 0.03 K/mcL (0.00-0.30); Basophils % (Auto) 0.4 % (0.0-2.0); Eosinophils # (Auto) 0.34 K/mcL (0.00-0.70); Hematocrit 29.5 % (34.1-44.9); Hemoglobin 9.9 g/dL (11.2-15.7); Lymphocytes # (Auto) 1.15 K/mcL (1.50-4.80); Lymphocytes % (Auto) 13.4 % (15.5-49.0); Mean Cell Volume 100.7 fL (80.0-100.0); Mean Corpuscular HGB Conc 33.6 g/dL (31.0-36.0); Mean Platelet Volume 11.4 fL (7.4-10.4); Monocytes # (Auto) 0.68 K/mcL (0.10-0.90); Monocytes % (Auto) 7.9 % (1.0-12.0); Neutrophils % (Auto) 74.3 % (38.0-78.0); Platelet Count 58 K/mcL (140-440); RBC 2.93 M/mcL (3.59-5.38); WBC 8.6 K/mcL (4.5-11.0)
[2021-09-18] MEDS: MAGNESIUM SULFATE 2 GM/50 ML BAG IV PRN (11:06)
--- NOTE | 2021-09-18 11:08 | Internal Med Progress Note ---
SUBJECTIVE Subjective Patient information: Note initiated : 09/18/21 at 11:05 am Service Date, if different from initiated Date: [] Patient: Rani Toro a 81 y/o F admitted on 09/11/21 for Dizzy. Chief Complaint: [] Principal diagnosis: Retained left ureteral stent and renal failure Interval history: History of present illness: Ms. Toro is a 81 year old F Presents to the ED with increasing weakness and lightheadedness. Patient had hard time walking to the bathroom without having to sit down from feeling lightheadedness. Denies fever chills nausea vomiting. Denies chest pain or stomach pain. Abnormal bowel function from Crohn's. Has a history of chronic kidney disease and follows with Dr. Angeles. Chronic thrombocytopenia and anemia. Old notes report a single episode of atrial fibrillation but none since; and confirmed by pt. She has a left kidney stents post removed by Dr. Aparicio on Saturday. On evaluation the ED she was hypotensive initially which responded to IV fluid. She is work-up but found to have acute acute kidney injury on chronic kidney disease. Wound to have pyelonephritis on the left. Case discussed with Dr. Karthik Aparicio. CT abdominal also read as pneumatosis in the colon and case discussed with Dr. Tate who will see the patient in the morning but did not have any recom mendations at this point. 09/11 Doing better. Not getting lightheaded like she was before. Poor sleep. 09/12 Patient doing well. Scheduled to get stent out today. IV fluids per nephrology. Chemistry pending. 09/13 Patient had ureteral stent removed and replaced yesterday and stones removed. Hemoglobin below 7 today and will transfuse. Patient feels well overall. Renal function has not improved. 09/14 Gross hematuria. Patient feels well. No overnight event or new complaints. Received blood transfusion yesterday. Given the active bleeding and the platelets down to 41k will transfuse plat elets. FFP given coagulopathy. Awaiting renal function panel. Added Ampicillin for enterococcus that grew in urine culture. 09/15 Continues to have gross hematuria, making urine. Platelets 46, INR 1.8. creatinine about the same as yesterday at 5.7. Abdomen appears to be distended. The patient feels well. 09/16 Feels well, afebrile, hemoglobin stable, platelets 43,000, sodium 132, renal function slightly better, creatinine 5.3, urine output only 520 mL in 24 hrs, continues to have gross hematuria. Paracentesis today for about 5200 mL of serous fluid, received Albumin 25% 37.5 gm IV. 09/17 Peritoneal fluid workup consistent with ascites secondary to portal hypertension due to liver cirrhosis, SAA.1, fluid protein 1.2. Renal function improving, creatinine 4.8 today. Gross hematuria resolved. Discussed antibiotic management of polymicrobial UTI with multidrug resistant bacteria with ID at [facility] in [place], Dr. Hamm. Dr. Hamm did not feel there was a good oral antibiotic options given the antibiotic resistance patterns in the urine cultures, recommended treating with IV antibiotics until the remaining ureteral stones and ureteral stent have been removed. PICC line placement ordered. Anticipate discharge to SNF for IV antibiotics and probably rehab. 09/18 Renal function improved, hemoglobin and platelet initially low however normal on recheck. Discussed antibiotic management with Dr. Aparicio, he felt he patient only needs to be on antibiotics for 14 days then discontinue. He does not plan on another urologicc procedure for at least 4 weeks. The likely discharge plan will be SNF for IV antibiotics to complete 14 days and follow up with urology. Physical exam Head: Atraumatic, normal inspection. Eyes: normal appearance, no scleral icterus. Neck: full ROM Respiratory: no respiratory distress. Cardiovascular: normal rate and rhythm, S1, S2. GI/Abdominal: distended abdomen, nontender, no guarding. : Pitts catheter with clear urine. Extremities: full range of motion, nontender. Neurological: CN II-XII intact, intact motor, intact sensation. Psychiatric: normal mood. Skin: warm, normal color Constitutional Vitals: Vital Signs Temp Pulse Resp BP Pulse Ox 97.8 F 93 H 19 102/48 100 09/18/21 08:09 09/18/21 10:03 09/18/21 10:03 09/18/21 10:01 09/18/21 10:03 Period Temp Pulse Resp BP Sys/Sotelo Pulse Ox Last 24 Hr 97.6 F-97.8 F 74-98 13-29 90-117/45-95 95-100 Intake and Output 09/17/21 09/18/21 09/18/21 21:59 05:59 13:59 Intake Total 100 Output Total 255 170 75 Balance -255 -170 25 Weight 75.568 kg Intake & Output: Intake & Output 09/17/21 09/18/21 09/18/21 21:59 05:59 13:59 Intake Total 100 Output Total 255 170 75 Balance -255 -170 25 Weight 75.568 kg Intake: IV 100 Ampicillin 2 gm In Sodium 100 Chloride 0.9% 100 ml @ 100 mls/ hr IV Q24H [facility] Rx#:[id number] Output: Urine Catheter Amount 230 170 75 Void Amount 25 Other: Urine Appearance Clear Cloudy Cloudy Uretheral (Pitts) Clear Clear Cloudy Hematuria Hematuria Urine Color Dark Yellow Light [place] Pale [place] Uretheral (Pitts) Dark Yellow Dark Yellow Pale [place] Urine Odor Strong # Bowel Movements 0 OBJ DATA Labs CBC & Chem 7: 09/18/21 08:05 09/18/21 06:22 Labs: Abnormal Lab Results 09/18/21 09/18/21 09/18/21 08:05 08:05 06:22 WBC RBC 2.93 L Hgb 9.9 L Hct 29.5 L MCV 100.7 H RDW 19.0 H Plt Count 58 L MPV 11.4 H Neut % (Auto) Lymph % (Auto) 13.4 L Lymph # (Auto) 1.15 L [place] # (Auto) PT INR Sodium Potassium 3.2 L Carbon Dioxide 18 L BUN 36 H Creatinine 3.8 H Glucose 64 L Uric Acid 8.9 H Calcium 6.8 L Total Bilirubin Direct Bilirubin 0.5 H Lactate Dehydrogenase Total Protein 4.3 L Albumin 2.2 L Globulin 2.1 L Vitamin B12 1715.0 H 09/18/21 09/17/21 09/17/21 06:22 09:35 09:35 WBC 4.4 L RBC 2.08 L 3.01 L Hgb 7.0 L* 9.9 L Hct 22.5 L 30.8 L MCV 108.2 H 102.3 H RDW 18.8 H 19.5 H Plt Count 36 L* 59 L MPV 11.8 H Neut % (Auto) Lymph % (Auto) 12.2 L Lymph # (Auto) 0.79 L 1.17 L [place] # (Auto) 0.91 H PT INR Sodium Potassium Carbon Dioxide 19 L BUN 42 H Creatinine 4.8 H Glucose 108 H Uric Acid 10.8 H Calcium 8.3 L Total Bilirubin 1.2 H Direct Bilirubin 0.5 H Lactate Dehydrogenase Total Protein 5.6 L Albumin 2.9 L Globulin Vitamin B12 09/17/21 09/16/21 09/16/21 09:35 07:58 07:58 WBC RBC 2.82 L Hgb 9.3 L Hct 29.2 L MCV 103.5 H RDW 19.2 H Plt Count 43 L* MPV 11.4 H Neut % (Auto) 79.5 H Lymph % (Auto) 8.2 L Lymph # (Auto) 0.62 L [place] # (Auto) PT 18.5 H INR 1.5 H Sodium 132 L Potassium Carbon Dioxide 20 L BUN 43 H Creatinine 5.3 H* Glucose Uric Acid 10.8 H Calcium 7.9 L Total Bilirubin 1.4 H Direct Bilirubin 0.6 H Lactate Dehydrogenase 226 H Total Protein 5.4 L Albumin 2.8 L Globulin Vitamin B12 09/15/21 14:28 WBC RBC Hgb 9.2 L Hct MCV RDW Plt Count MPV Neut % (Auto) Lymph % (Auto) Lymph # (Auto) [place] # (Auto) PT INR Sodium Potassium Carbon Dioxide BUN Creatinine Glucose Uric Acid Calcium Total Bilirubin Direct Bilirubin Lactate Dehydrogenase Total Protein Albumin Globulin Vitamin B12 Meds: Medications Acetaminophen (Acetaminophen 325 Mg Tablet) 650 mg PO Q6HP PRN; Protocol PRN Reason: Per Pain Protocol/Fever > 101 Last Admin: 09/12/21 20:17 Dose: 650 mg Documented by: Albuterol/Ipratropium (Ipratropium/Albuterol 3 Ml Ampul.Neb) 3 ml NEB Q4HP PRN PRN Reason: Shortness Of Breath Atorvastatin Calcium (Atorvastatin 10 Mg Tablet) 10 mg PO [facility] Last Admin: 09/17/21 20:12 Dose: 10 mg Documented by: Buspirone HCl (Buspirone 5 Mg Tablet) 2.5 mg PO DAILY [facility] Last Admin: 09/18/21 09:10 Dose: 2.5 mg Documented by: Calcium Carbonate/Glycine (Calcium Carbonate 500 Mg Tab.Chew) 500 mg CHEWED DAILY [facility] Last Admin: 09/18/21 09:10 Dose: 500 mg Documented by: Cefepime HCl (Cefepime 1 Gm Vial) 0.5 gm IV Q24H [facility] Last Admin: 09/18/21 09:10 Dose: 0.5 gm Documented by: Escitalopram Oxalate (Escitalopram 10 Mg Tablet) 10 mg PO QDAY [facility] Last Admin: 09/18/21 09:10 Dose: 10 mg Documented by: Folic Acid (Folic Acid 1 Mg Tablet) 1 mg PO DAILY [facility] Last Admin: 09/18/21 09:10 Dose: 1 mg Documented by: Potassium Chloride 40 meq/ (Dextrose) 520 mls @ 130 mls/hr IV UD PRN PRN Reason: Potassium < 3 Magnesium Sulfate (Magnesium Sulfate) 2 gm in 50 mls @ 50 mls/hr IV UD PRN PRN Reason: Magnesium </= 1.6 Last Infusion: 09/14/21 20:56 Dose: Infused Documented by: Ampicillin Sodium 2 gm/ Sodium (Chloride) 100 mls @ 100 mls/hr IV Q24H [facility] Last Infusion: 09/18/21 10:26 Dose: Infused Documented by: Loperamide HCl (Loperamide 2 Mg Capsule) 2 mg PO PRN PRN PRN Reason: Diarrhea Last Admin: 09/16/21 23:57 Dose: 2 mg Documented by: Melatonin (Melatonin 3 Mg Tablet) 3 mg PO QHS [facility] Last Admin: 09/17/21 20:12 Dose: 3 mg Documented by: Metoprolol Tartrate (Metoprolol Tartrate 5 Mg/5 Ml Vial) 5 mg IV Q2HP PRN PRN Reason: Tachyarrhythmias HR>110 Ondansetron HCl (Ondansetron 4 Mg/2 Ml Vial) 4 mg IV Q4HP PRN PRN Reason: Nausea And Vomiting Polyethylene Glycol (Polyethylene Glycol 3350 17 Gm Packet) 17 gm PO DAILYP PRN PRN Reason: Constipation Potassium Chloride (Potassium Chloride 20 Meq Tablet) 40 meq PO UD PRN PRN Reason: Potssium is 3-3.5 Last Admin: 09/17/21 10:39 Dose: 40 meq Documented by: Potassium Chloride (Potassium Chloride 20 Meq Tablet) 40 meq PO UD PRN PRN Reason: Potassium < 3 Fluticasone/Salmeterol (Fluticasone/Salmeterol 50/100 Inhaler #14) 1 puff INH DAILY [facility] Last Admin: 09/18/21 09:11 Dose: 1 puff Documented by: Senna (Sennosides 1 Tablet) 2 tab PO DAILYP PRN PRN Reason: Constipation Sodium Bicarbonate (Sodium Bicarbonate 650 Mg Tablet) 650 mg PO BID [facility] Last Admin: 09/18/21 09:10 Dose: 650 mg Documented by: Sodium Chloride (0.9 % Sodium Chloride 10 Ml Syringe) 10 ml IV Q8 [facility] Last Admin: 09/18/21 05:56 Dose: 10 ml Documented by: A/P Narrative A/P Narrative: A: *Resolved severe sepsis: 2/2 pyelonephritis *Left pyelonephritis (Aerococcus/MDRO E.coli/Enterococcus): Has a left ureteral stent will be removed by Dr. Aparicio *Left obstructing ureteral stent & nephrolithiasis: s/p stent/stone removal w/stent replacement (09/12) -remaining left and right renal stones that will need intervention but not for at least [address] Aparicio *Resolvied hematuria: *Anemia, acute blood loss on chronic: s/p procedure -2prbc (09/13) -H/H trend now stable *RAMSES on CKD III: Follows Dr. Angeles -improving renal function *Met acidosis: 2/2 above *Thrombocytopenia, acute on chronic: *Decompensated liver cirrhosis: CT imaging read as cirrhosis with ascites. no portal vein thrombosis on u/s -paracentesis on 09/16 for 5,200 mL of clear fluid -SAA.1, fluid protein 1.2 *Coagulopathy: 2/2 above *COPD(no home O2): *Depression/anxiety: *Crohn's disease: Follows with Dr. Jacobo P: -Renally dosed Cefepime and Ampicillin for polymicrobial pyelonephritis, c omplete 14 days of treatment per urology (Dr. Aparicio) recommendations. -Dr. Tavarez following -monitor H&H, transfuse as indicated. -monitor platelets and INR. -hold home BB for low BP, restart when able -Paracentesis as needed. -hold ASA for recent hematuria -cont home psych/IH's -pt/ot -f/u with [facility] regarding cirrhosis findings on CT -ppx: SCD for now -disposition: possibly SNF for IV antibiotic treatment to complete 14 days. -code status: DNR/DNI Time Spent With Patient Time: Total time spent is greater than 50% in coordination of care (as documented) at patient's floor/unit and/or counseling patient:
[2021-09-18] MEDS: MELATONIN 3 MG TABLET PO SCH (20:59)
[2021-09-18] MEDS: ATORVASTATIN 10 MG TABLET PO SCH (20:59)
[2021-09-19] MEDS: 0.9 % SODIUM CHLORIDE 10 ML SYRINGE IV SCH (06:36)
[2021-09-19 07:09] LABS: Basophils # (Auto) 0.03 K/mcL (0.00-0.30); Basophils % (Auto) 0.5 % (0.0-2.0); Eosinophils % (Auto) 3.6 % (0.0-7.0); Hematocrit 30.4 % (34.1-44.9); Hemoglobin 9.8 g/dL (11.2-15.7); Lymphocytes # (Auto) 1.05 K/mcL (1.50-4.80); Lymphocytes % (Auto) 18.8 % (15.5-49.0); Mean Cell Volume 101.7 fL (80.0-100.0); Mean Corpuscular HGB Conc 32.2 g/dL (31.0-36.0); Mean Platelet Volume 10.8 fL (7.4-10.4); Monocytes # (Auto) 0.41 K/mcL (0.10-0.90); Monocytes % (Auto) 7.3 % (1.0-12.0); Neutrophils % (Auto) 69.8 % (38.0-78.0); Platelet Count 34 K/mcL (140-440); RBC 2.99 M/mcL (3.59-5.38); Red Cell Distribution Width 19.3 % (11.5-14.5); WBC 5.6 K/mcL (4.5-11.0)
[2021-09-19 07:38] LABS: ALT/SGPT 11 U/L (<40); AST/SGOT 21 U/L (<32); Albumin/Globulin Ratio 1.2 (1.0-2.3); Alkaline Phosphatase 53 U/L (39-117); Bilirubin,Total 1.2 mg/dL (0.1-1.0); Blood Urea Nitrogen 44 mg/dL (8-23); Calcium 8.5 mg/dL (8.6-10.4); Carbon Dioxide 19 mmol/L (22-30); Chloride 101 mmol/L (96-108); Globulin 2.6 gm/dL (2.2-3.7); Glomerular Filtration Rate 8; Glucose 75 mg/dL (70-105)
--- NOTE | 2021-09-19 07:47 | Nephrology Progress Note ---
SUBJECTIVE Subjective Patient information: Note initiated : 09/19/21 at 7:46 am Patient: Rani Toro 81 y/o F admitted on 09/11/21 for Dizzy. Chief Complaint: Weakness Principal diagnosis: Retained left ureteral stent and renal failure Pertinent ROS: Weakness Pitts catheter with yellow cloudy urine Edema No nausea No shortness of breath Constitutional Vitals: Vital Signs Temp Pulse Resp BP Pulse Ox 98.1 F 76 16 118/64 98 09/19/21 03:10 09/19/21 03:10 09/19/21 03:10 09/19/21 03:10 09/19/21 03:10 Period Temp Pulse Resp BP Sys/Sotelo Pulse Ox Last 24 Hr 97.5 F-99.4 F 76-93 14-25 90-124/42-64 97-100 Intake and Output 09/18/21 09/19/21 09/19/21 21:59 05:59 13:59 Intake Total 1200 150 Output Total 100 175 Balance 1100 -25 Weight 168 lb 9.6 oz Intake & Output: Intake & Output 09/18/21 09/19/21 09/19/21 21:59 05:59 13:59 Intake Total 1200 150 Output Total 100 175 Balance 1100 -25 Weight 168 lb 9.6 oz Intake: Oral 1200 150 Output: Urine Catheter Amount 100 175 Other: Urine Appearance Cloudy Cloudy Urine Color Dark Yellow Bright Yellow Stool Size Large Stool Color Brown Stool Consistency Loose # Bowel Movements 1 General appearance: cooperative and no acute distress Head Head exam: Present normal inspection Eye Eye exam: Present normal appearance ENT ENT exam: Present mucous membranes moist Respiratory Respiratory exam: Absent respiratory distress Cardiovascular Cardiovascular exam: Present normal rate and rhythm GI/Abdominal GI/Abdominal exam: Present soft; Absent tenderness Extremities Exam Extremities exam: Absent joint swelling or pedal edema Neurological Exam Neurological exam: Present alert and oriented X3 Psychiatric Psychiatric exam: Present normal affect and normal mood Skin Skin exam: Present warm; Absent rash A/P Assessment and plan (1) Acute renal failure with acute tubular necrosis superimposed on stage 3a chronic kidney disease: Assessment and plan: Rani Toro is an 81-year-old female with a history of Crohn's disease, atrial fibrillation, hypertension, chronic obstructive pulmonary disease, chronic kidney disease stage 3-4, chronic thrombocytopenia and anemia, a long history of kidney stones, a left ureteral stent placed in October 2020 presented to [facility] ED for weakness. In ED, she was hypotensive, but responded to IV fluids. Her work-up was significant for acute kidney injury on chronic kidney disease. CT Abdomen and Pelvis without contrast on 09/10/21 reported abnormal ascending colon with pneumatosis and dilatation. There is infiltration of pericolonic fat. Etiology is not certain. Malignancy is possible. Ischemic colitis is possible although distribution is atypical. Cirrhosis. Moderate ascites. Bilateral renal calculi. There is a left ureteral stent present. There is a stone adjacent to the distal portion of the stent. Gas within the left renal collecting system. There is no intravesical gas. Emphysematous pyelitis is possible. She was diagnosed with sepsis, admitted and started on Vancomycin and Zosyn. Baseline serum creatinine: 0.9-1.4 (eGFR 35-60) in 2020, 2.1 (eGFR 21) on 08/15/21. Nephrology consultation was requested for acute kidney injury. Acute kidney injury, likely acute tubular necrosis and/orobstructive nephropathyassociated with emphysematous pyelonephritis, nonfunctional right kidney on chronic kidney disease stage 3-4 with initial metabolic acidosis, present on arrival. There is no recent history of IV contrast administration or NSAID use. Intravascular volume depletion treated with adequate IV fluid resuscitation. Acute emphysematous pyelonephritis with Aerococcus urinae,Escherichia coli and Enterococcus species (by urine culture from 09/12/21). She was started on Vancomycin and Zosyn then changed to Cefepime. Chronic thrombocytopenia, worse, likely associated with cirrhosis of liver and sepsis. Acute on chronic anemia. Previous workup: NM Renal Scan on 08/31/21: Right kidney significant delayed excretion of radiotracer or obstruction. Workup: Renal US on 09/12/21: Nonobstructing renal calculi bilaterally.Mild left hydronephrosis.Elevated maximum systolic flow velocity in the proximal left renalartery. Left renal artery stenosis is probably about 50% diameter.Elevated resistive indices bilaterally. Urinalysis on 09/10/21: Green, Cloudy, pH 6.0, SG 1.020, protein >300, blood large, leukocyte esterase large, urine WBC >182, urine culture pending. CT Abdomen and Pelvis without contrast on 09/10/21: Abnormal ascending colon with pneumatosis and dilatation. There is infiltration of pericolonic fat. Etiology is not certain. Malignancy is possible. Ischemic colitis is possible although distribution is atypical. Cirrhosis. Moderate ascites. Bilateral renal calculi. There is a left ureteral stent present. There is a stone adjacent to the distal portion of the stent. Gas within the left renal collecting system. There is no intravesical gas. Emphysematous pyelitis is possible. Treatment: Sodium Bicarbonate 650 mg twice daily for metabolic acidosis. Cystoscopy, difficult removal of retained, encrusted, left ureteral stent. Left retrograde pyelogram, left ureteroscopy, left holmium laser lithotripsy, left ureteral stone basketing, and left renal stent placement on 09/12/21. She needs further cleaning. Progress: Serum creatinine increased from 3.8 to 4.8 (eGFR 8) in the past 24 hours. Baseline serum creatinine: 0.9-1.4 (eGFR 35-60) in 2020, 2.1 (eGFR 21) on 08/15/21. Urine output: 425 ml reported in the past 24 hours. Metabolic acidosis. Fluid overload with lower extremity edema. I/O: + 9.2 L Weight + 18 lb No uremic symptoms. Recommendations/Plan: Anticipate no acute hemodialysis need. Urology follow up for further plan. Outpatient nephrology follow up with Dr. Angeles. Status: Acute (2) Metabolic acidosis: Status: Acute Time Spent With Patient Time: Total time spent is greater than 50% in coordination of care (as documented) at patient's floor/unit and/or counseling patient:
[2021-09-19] MEDS: FLUTICASONE/SALMETEROL 50/100 INHALER #14 INH SCH (08:38)
[2021-09-19] MEDS: AMPICILLIN SODIUM 2 GM in 0.9 % SODIUM CHLORIDE 100 ML IV SCH (08:38)
[2021-09-19] MEDS: CALCIUM CARBONATE 500 MG TAB.CHEW CHEWED SCH (08:38)
[2021-09-19] MEDS: ESCITALOPRAM 10 MG TABLET PO SCH (08:39)
[2021-09-19] MEDS: SODIUM BICARBONATE 650 MG TABLET PO SCH (08:39)
[2021-09-19] MEDS: busPIRone 5 MG TABLET PO SCH (08:39)
[2021-09-19] MEDS: FOLIC ACID 1 MG TABLET PO SCH (08:39)
[2021-09-19] MEDS ORDERED: CEFEPIME 1 GM VIAL IV SCH (09:00)
--- NOTE | 2021-09-19 13:26 | Discharge Summary ---
Discharge Provider Provider Patient information: Note initiated : 09/19/21 at 1:22 pm Service Date, if different from initiated Date: [] Patient: Rani Toro 81 y/o F admitted on 09/11/21 for Dizzy. Chief Complaint: [] Date of admission: 09/11/21 02:22 Discharge date: 09/19/21 Primary care physician: Marques Tinoco MD Attending physician on admission: Lemuel Downs Consults: 09/10/21 Consult to Physician [CONS] Stat Comment: Consulting Provider: Aris Aparicio Reason For Exam: Physician to Consult Consult to Physician [CONS] Stat Comment: Consulting Provider: Lemuel Downs Reason For Exam: Physician to Consult Consult to Physician [CONS] Stat Comment: Consulting Provider: Mae Lane Reason For Exam: Physician to Consult Consult to Physician [CONS] Stat Comment: Consulting Provider: Cecilio Tate Reason For Exam: Physician to Consult 09/19/21 11:42 Consult to Physician [CONS] Routine Comment: SNF referral Consulting Provider: [facility] Reason For Exam: Physician to Consult Attending physician on discharge: Cal Guido Pui Discharge Meds Discharge Medications Home Medications aspirin 81 mg chewable tablet 81 mg PO DAILY tab 01/27/15 [History Confirmed 09/10/21 Last Taken 11/12/20] folic acid 800 mcg tablet 800 mcg PO QDAY tab 01/27/15 [History Confirmed 09/10/21 Last Taken 11/14/20] potassium citrate 10 mEq (1,080 mg) tablet,extended release 10 meq PO TID #90 tab 03/02/21 [Rx Confirmed 09/10/21 Last Taken Unknown] rtybjihmdnml-lodnmpoo-glhazv tablet 1 tab PO QDAY 03/27/21 [History Confirmed 09/10/21 Last Taken Unknown] omega 3-tib-mfu-fish oil 1,000 mg (120 mg-180 mg) capsule (Fish Oil) 1 cap PO QDAY 03/27/21 [History Confirmed 09/10/21 Last Taken Unknown] buspirone 5 mg tablet 2.5 mg PO QDAY #45 tab 05/09/21 [Rx Confirmed 09/10/21 Last Taken Unknown] cyanocobalamin (vitamin B-12) 1,000 mcg/mL injection solution 1,000 mcg SUB-Q QMONTH #3 ml 05/09/21 [Rx Confirmed 09/10/21 Last Taken Unknown] escitalopram oxalate 10 mg tablet (Lexapro) 10 mg PO QDAY #90 tab 05/09/21 [Rx Confirmed 09/10/21 Last Taken Unknown] fluticasone 100 mcg-salmeterol 50 mcg/dose blistr powdr for inhalation (Wixela Inhub) 1 inh INHALATION QDAY #60 ea 05/09/21 [Rx Confirmed 09/10/21 Last Taken Unknown] metoprolol succinate 25 mg tablet,extended release 24 hr 25 mg PO HS #90 tab 05/09/21 [Rx Confirmed 09/10/21 Last Taken Unknown] pravastatin 40 mg tablet 40 mg PO HS #90 tab 05/09/21 [Rx Confirmed 09/10/21 Last Taken Unknown] cetirizine 10 mg tablet (Zyrtec) 10 mg PO QDAY PRN 09/08/21 [History Confirmed 09/10/21 Last Taken Unknown] cholecalciferol (vitamin D3) 25 mcg (1,000 unit) capsule (Vitamin D3) 25 mcg PO QDAY 09/08/21 [History Confirmed 09/10/21 Last Taken Unknown] azathioprine 50 mg tablet (Imuran) 50 mg PO QDAY 09/11/21 [History Confirmed 09/11/21 Last Taken Unknown] calcium citrate 250 mg PO BID 09/11/21 [History Confirmed 09/11/21 Last Taken Unknown] magnesium oxide 400 mg PO QDAY 09/11/21 [History Confirmed 09/11/21 Last Taken Unknown] mirabegron 50 mg tablet,extended release 24 hr (Myrbetriq) 50 mg PO QDAY 09/11/21 [History Confirmed 09/11/21 Last Taken Unknown] ampicillin sodium 2 gram solution for injection 2 g IM Q24HP PRN #7 ea 09/19/21 [Rx Last Taken Unknown] cefepime 1 gram solution for injection 1 gm IV Q24H #7 ea 09/19/21 [Rx Last Taken Unknown] COURSE Hospital Course Hospital course: Ms. Toro is a 81 year old F Presents to the ED with increasing weakness and lightheadedness. Patient had hard time walking to the bathroom without having to sit down from feeling lightheadedness. Denies fever chills nausea vomiting. Denies chest pain or stomach pain. Abnormal bowel function from Crohn's. Has a history of chronic kidney disease and follows with Dr. Angeles. Chronic thrombocytopenia and anemia. Old notes report a single episode of atrial fibrillation but none since; and confirmed by pt. She has a left kidney stents post removed by Dr. Aparicio on Saturday. On evaluation the ED she was hypotensive initially which responded to IV fluid. She is work-up but found to have acute acute kidney injury on chronic kidney disease. Wound to have pyelonephritis on the left. Case discussed with Dr. Karthik Aparicio. CT abdominal also read as pneumatosis in the colon and case discussed with Dr. Tate who will see the patient in the morning but did not have any recommendations at this point. 09/11 Doing better. Not getting lightheaded like she was before. Poor sleep. 09/12 Patient doing well. Scheduled to get stent out today. IV fluids per nephrology. Chemistry pending. 09/13 Patient had ureteral stent removed and replaced yesterday and stones removed. Hemoglobin below 7 today and will transfuse. Patient feels well overall. Renal function has not improved. 09/14 Gross hematuria. Patient feels well. No overnight event or new complaints. Received blood transfusion yesterday. Given the active bleeding and the platelets down to 41k will transfuse platelets. FFP given coagulopathy. Awaiting renal function panel. Added Ampicillin for enterococcus that grew in urine culture. 09/15 Continues to have gross hematuria, making urine. Platelets 46, INR 1.8. creatinine about the same as yesterday at 5.7. Abdomen appears to be distended. The patient feels well. 09/16 Feels well, afebrile, hemoglobin stable, platelets 43,000, sodium 132, renal function slightly better, creatinine 5.3, urine output only 520 mL in 24 hrs, continues to have gross hematuria. Paracentesis today for about 5200 mL of serous fluid, received Albumin 25% 37.5 gm IV. 09/17 Peritoneal fluid workup consistent with ascites secondary to portal hypertension due to liver cirrhosis, SAA.1, fluid protein 1.2. Renal function improving, creatinine 4.8 today. Gross hematuria resolved. Discussed antibiotic management of polymicrobial UTI with multidrug resistant bacteria with ID at [facility] in [place], Dr. Hamm. Dr. Hamm did not feel there was a good oral antibiotic options given the antibiotic resistance patterns in the urine cultures, recommended treating with IV antibiotics until the remaining ureteral stones and ureteral stent have been removed. PICC line placement ordered. Anticipate discharge to SNF for IV antibiotics and probably rehab. 09/18 Renal function improved, hemoglobin and platelet initially low however normal on recheck. Discussed antibiotic management with Dr. Aparicio, he felt he patient only needs to be on antibiotics for 14 days then discontinue. He does not plan on another urologicc procedure for at least 4 weeks. The likely discharge plan will be SNF for IV antibiotics to complete 14 days and follow up with urology. 09/19: Reached clinical stability. Accepted by and discharged to SNF for ongoing IV antibiotics therapy. f/u appointment with PCP and urology made for patient, respectively. All questions answered prior to patient being physically discharged. Discharge diagnosis: pyelonephritis Time Spent with Patient Time attestation: Total time spent providing and/or coordinating discharge services: Time spent: Greater than 30 minutes EXAM Constitutional Vitals: Temp Pulse Resp BP Pulse Ox 36.4 C 93 H 20 92/52 98 09/19/21 12:00 09/19/21 12:00 09/19/21 12:00 09/19/21 12:09/19/21 12:00 General appearance: cooperative and no acute distress Head Head exam: Present atraumatic and normocephalic Eye Eye exam: Present EOMI and PERRL ENT ENT exam: Present mucous membranes moist, normal exam and normal external ear exam Neck Neck exam: Present normal inspection; Absent lymphadenopathy, tenderness or thyromegaly Respiratory Respiratory exam: Absent accessory muscle use, respiratory distress or wheezes Cardiovascular Cardiovascular exam: Present irregular rhythm; Absent JVD GI/Abdominal GI/Abdominal exam: Present normal bowel sounds and soft; Absent organomegaly or tenderness Extremities Exam Extremities exam: Present full ROM, normal capillary refill and normal inspection; Absent tenderness Neurological Exam Neurological exam: Present alert, CN II-XII intact and oriented X3; Absent motor sensory deficit Psychiatric Psychiatric exam: Present normal affect and normal mood; Absent anxious or depressed Skin Skin exam: Present dry and intact Discharge Data Data Completed and Pending Labs on day of discharge: Labs from last 24 hours 09/19/21 09/19/21 05:39 05:39 WBC 5.6 RBC 2.99 L Hgb 9.8 L Hct 30.4 L MCV 101.7 H MCH 32.8 MCHC 32.2 RDW 19.3 H Plt Count 34 L* MPV 10.8 H Neut % (Auto) 69.8 Lymph % (Auto) 18.8 [place] % (Auto) 7.3 Eos % (Auto) 3.6 Baso % (Auto) 0.5 Lymph # (Auto) 1.05 L [place] # (Auto) 0.41 Eos # (Auto) 0.20 Baso # (Auto) 0.03 Absolute Neutrophils 3.90 Sodium 135 Potassium 5.0 Chloride 101 Carbon Dioxide 19 L Anion Gap 15.0 BUN 44 H Creatinine 4.8 H GFR Calculation 8 Glucose 75 Calcium 8.5 L Total Bilirubin 1.2 H AST 21 ALT 11 Alkaline Phosphatase 53 Total Protein 5.6 L Albumin 3.0 L Globulin 2.6 Albumin/Globulin Ratio 1.2 Discharge Plan Patient/Caregiver Discharge Instructions Activity: increase activity as tolerated and resume usual activities as tolerated Diet: Regular Diet Prescriptions: New ampicillin sodium 2 gram recon soln 2 g IM Q24HP PRN (Reason: pyelonephritis) Qty: 7 0RF cefepime 1 gram Recon Soln 1 gm IV Q24H Qty: 7 0RF Continued potassium citrate 10 mEq (1,080 mg) tablet extended release 10 meq PO TID Qty: 90 11RF aspirin 81 mg tablet,chewable 81 mg PO DAILY 0RF folic acid 800 mcg tablet 800 mcg PO QDAY 0RF buspirone 5 mg tablet 2.5 mg PO QDAY Qty: 45 1RF cyanocobalamin (vitamin B-12) 1,000 mcg/mL solution 1,000 mcg SUB-Q QMONTH Qty: 3 1RF escitalopram oxalate [Lexapro] 10 mg tablet 10 mg PO QDAY Qty: 90 1RF fluticasone propion-salmeterol [Wixela Inhub] 100-50 mcg/dose blister with de vice 1 inh INHALATION QDAY Qty: 60 1RF metoprolol succinate 25 mg tablet extended release 24 hr 25 mg PO HS Qty: 90 1RF pravastatin 40 mg tablet 40 mg PO HS Qty: 90 1RF npytgtxnpsjx-ulqudxif-nmbdfg Tablet 1 tab PO QDAY 0RF omega 7-zfn-tox-fish oil [Fish Oil] 1,000 mg (120 mg-180 mg) Capsule 1 cap PO QDAY 0RF cetirizine [Zyrtec] 10 mg Tablet 10 mg PO QDAY PRN (Reason: Allergies) 0RF cholecalciferol (vitamin D3) [Vitamin D3] 25 mcg (1,000 unit) Capsule 25 mcg PO QDAY 0RF azathioprine [Imuran] 50 mg Tablet 50 mg PO QDAY 0RF calcium citrate 250 mg calcium Tablet 250 mg PO BID 0RF magnesium oxide 400 mg magnesium Tablet 400 mg PO QDAY 0RF Myrbetriq 50 mg Tablet Extended Release 24 Hr 50 mg PO QDAY 0RF Follow Up Plan Follow up with: Abdulaziz Griffin PA-C [Physician Statistical Secretary] - 09/26/21 11:00 am (Check-in at 10:45 am) Aris Aparicio MD [Physician] - 09/21/21 2:30 pm Patient Disposition: Xfer SNF Rehab Potential: Good I certify that the patient requires SNF services: Yes Overall status at discharge: patient is progressing back to baseline Discharge Orders: Discharge Order (Routine); Ordered 09/19/21 Ordered By: Cal Gloria
[2021-09-20 06:09] LABS: Nucleated Cel,Peritoneal Fluid 116 /cumm
== END 2021-09-19 14:20 ==
LOC: ED 14:17 → ICU 09-11 02:22 → MEDSUR 09-18 13:37
PROVIDERS: ADMIT Internal Medicine; ATTEND Internal Medicine